=== PATIENT | male | born 1970 | race Caucasian/White ===

== ENCOUNTER 2023-07-13 20:39 | Inpatient (IN) | payer OTHER, SELFPAY ==
[2023-07-13 18:05] VITALS: BP 101/62; BMI 23.6
--- NOTE | 2023-07-13 18:46 | ED.GENMED ---
History of Present Illness
General
Chief Complaint: Skin Problem
Source: patient
Exam Limitations: none
Time Seen by Provider: 07/13/23 18:09
Travel History
Have you had any contact with someone who has COVID-19?: No
Do you have any symptoms of coronavirus? Fever > 100 degrees, chills, cough, shortness of breath, sore throat, loss of taste or smell, muscle aches, or headache?: No
History of Present Illness
History of Present Illness:
This is a 52 year old male that [facility]. Patient is a quadriplegic. States that he has a sacral wound that he feels opened in the past 3 days. States that he also straights cath's himself about 4 times daily and he feel that
he has a UTI as his urine is very dark. States that he has had a fever with chills, some occasional diarrhea. States that he also had a cough about 2 days ago. Denies any chest pain, SOB, abd pain, nausea, vomiting, headache, dizziness.
Past History
Past History
ED Past Medical History: Hypercholesterolemia and Other (Quadriplegic, Muscle spasm, )
ED Past Surgical History: Orthopedic (Spinal fusion, Dejuan shoulder reconstruction. ), Urological (Prior renal stent) and Other (Skin graft buttocks)
Social History
Tobacco: Non-smoker
Alcohol: None
Personal: Single
Living: senior care
Review of Systems
Review of Systems
All Other Systems: ROS reviewed and negative except as documented in HPI and ROS
Constitutional: Reports fever and chills
EENT: Reports no symptoms
Respiratory: Reports no symptoms; Denies cough or trouble breathing
Cardiac: Reports no symptoms; Denies chest pain
ABD/GI: Reports diarrhea; Denies abdominal pain, nausea or vomiting
: Reports dark urine
Musculoskeletal: Reports no symptoms
Skin: Reports other (Sacral wound opened 3 days ago)
Neurological: Reports no symptoms; Denies dizzy or headache
Psychiatric: Reports no symptoms
Phy Exam
General Physical Exam
General Presentation: no apparent distress
General age: appears stated age
General Skin: warm and dry
General Habitus: normal
General Mental: alert
General Hydration: dry mucous membranes
ENT Exam
ENT Exam: TM's normal, pharynx normal and neck supple
Eye Exam
Eye Exam: EOMI
Cardiovascular Exam
Cardiovascular Exam: regular rate/rhythm, no edema and normal peripheral pulses
Pulmonary Exam
Pulmonary Exam: lungs clear, no respiratory distress, no rales, chest non tender, no crackles, no rhonchi, no wheezing and no cough
Gastrointestinal Exam
Gastrointestinal Exam: normal bowel sounds, non tender, soft, no organomegaly, no pulsatile mass and non distended
Musculoskeletal Exam
Musculoskeletal Exam: no edema and other (Does not feel below the naval. Only has arm movement)
Skin Exam
Skin Exam: normal color, warm/dry, no petechia and other (Large sacral decub, stage 2 with open area noted on the distal aspect. Redness noted around wound with black edges of the wound. Negative for any drainage. Very fowl smelling. )
Psychiatric Exam
Psychiatric Exam: normal mood/affect
Course
Orders/Labs/Results
Orders:
Orders
07/13/23 18:44
0.9% Sodium Chloride 1000 ml [Nss] 1,000 ml IV BOLUS
Acetaminophen [Tylenol] 1,000 mg PO NOW STA
07/13/23 18:46
CR Chest - 2 Views Urgent
Comment:
Reason For Exam: fever
07/13/23 18:52
Complete Blood Count/With Diff Urgent
Comprehensive Metabolic Panel Urgent
Lactic Acid Q4H
Comment: CANCEL 2nd LACTIC ACID IF 1st LACTIC ACID IS LESS THAN 2
Urinalysis Reflex To Culture Urgent
Date Specimen was Collected: 07/13/23
Time Specimen was Collected: 18:50
Urine Microscopic Reflex Cult Urgent
Blood Culture Q30M
HAMLET Source: Blood/Venous
Specimen Description:
Urine Culture Urgent
HAMLET Source: U
Specimen Description:
Date Specimen was Collected: 07/13/23
Time Specimen was Collected: 18:50
Wound Culture [Wound/Abscess/Other Culture] Urgent
HAMLET Source: Sacral
Specimen Description:
Date Specimen was Collected: 07/13/23
Time Specimen was Collected: 18:50
07/13/23 19:42
COVID-19 Antigen Urgent
Source: Nasal Swab
Influenza A+B Rapid Molecular Urgent
HAMLET Source: Nasal Swab
Specimen Description:
07/13/23 19:44
Vancomycin 1 Gram/200 ml [Vancocin] 1 gram in 200 ml IV NOW
07/13/23 19:58
Blood Culture Q30M
HAMLET Source: Blood/Venous
Specimen Description:
07/13/23 20:29
Admit/Transfer Patient As Directed
Co-Sign Provider:
Level of Care: Inpatient admission
Assign to:: Medical/Surgical
Physician / Group: divya le
Diagnosis: stage 2 sacral decub, quadripelegia, neurogenic bladder
Reason for Hospitalization: stage 2 sacral decub, quadripelegia, neurogenic bladder
Expected length of stay greater than two midnights?: Yes
ELOS- Estimated Length of Stay in days: 4
I certify the patient meets the requirements for IP care: Yes
Code Status As Directed
Resuscitation Status: Full Code
07/13/23 20:31
MRSA Screen Routine
HAMLET Source: Nose
Specimen Description:
Straight Cath As Directed
Frequency: q6h
Patient may straight cath themselves: Yes
Abnormal Lab Results
07/13/23
18:52
RBC 4.43 L 10^6/uL
(4.70-6.10)
Hgb 12.7 L g/dL
(13.0-18.0)
Hct 36.2 L %
(39.0-52.0)
Absolute Lymphs (auto) 0.3 L 10^3/uL
(1.2-3.4)
Neutrophils % 84.9 H %
(42.2-75.2)
Lymphocytes % 4.6 L %
(20.5-51.1)
Sodium 134 L mmol/L
(135-145)
Glucose 153 H mg/dl
(70-99)
Calcium 8.3 L mg/dl
(8.4-10.2)
AST 61 H U/L
(17-59)
Total Protein 5.6 L g/dl
(6.3-8.2)
Albumin 3.0 L g/dl
(3.5-5.0)
Ur Occult Blood Reflex 3+ A
(Negative)
Leukocyte Esterase Rfl Trace A
(Negative)
Urine RBC 16-20 A /HPF
(0-2)
Urine Bacteria (Reflex) Moderate A
(Negative)
07/13/23 18:52
07/13/23 18:52
H/H slightly low. Hyperglycemia, AST slightly elevated. Urine negative for infection. Lactic acid normal at 1.5, COVID negative, Negative for Influenza
Vital Signs
Initial and Last Documented VS:
Initial Vital Signs
Temp Pulse Resp BP Pulse Ox
99.6 F 115 22 101/62 100
07/13/23 18:05 07/13/23 18:05 07/13/23 18:05 07/13/23 18:05 07/13/23 18:05
Last Documented Vital Signs
Temp Pulse Resp BP Pulse Ox
102.3 F H 105 20 103/62 93
07/13/23 18:43 07/13/23 19:43 07/13/23 19:43 07/13/23 19:43 07/13/23 19:43
MDM/Problems Addressed
Differential Diagnosis Includes:
UTI, Sacral wound infection
MDM/Problems Addressed:
This is a 52 year old male that comes in with c/o open of his sacral wound 3 days ago. States that he also feels that he has a UTI as his urine has jj very dark. Patient self caths 4 times daily. States that he has had a fever with chills
Will get Septic work up and most likely admit as patient has a fever of 102.2 Await labs.
Chronic conditions affecting care:
Sacral wound, Self caths, Quadraplegic
Acute Exacerbation and/or Progression of Chronic Illness:
Self caths, Sacral wound
*Radiology
Radiology exam reviewed: preliminary read by ED provider (Chest- Negative for any acute disease of the chest. ) and radiology read reviewed (Chest-NO acute cardiopulmonary process. )
*Pulse Oximetry
Patient hypoxic: no
*EKG
Interpreted by ED Provider?: NA
Rate: EKG- N/A
*Lens Fabricating Machine Tender Interpretation
Rate: Lens Fabricating Machine Tender- N/A
*Critical Care Note
Total Time (30-74mins, 75-104mins- exclusive of procedures): Not Applicable
ED Attending Note
-
Portions of this chart may have been created with voice recognition software.� Occasional wrong word or��sound alike� substitutions may have occurred due to the inherent limitations of voice recognition software.
Discharge Plan
Departure
Patient Disposition: Admit
Date of Disposition: 07/13/23
Time of Disposition: 19:46
Admit to: Med/Surg
Presentation/result/management discussed w/ accepting MD/DO: Hospitalist
Patient with high blood pressure during this ER visit?: No
Condition: Good
Covid-19: Negative COVID-19
Discharge Problem:
Fever, Sacral wound Infection
Prescriptions:
No Action
chlorpheniramine maleate [Allergy 4-Hour] 4 mg Tablet
4 mg PO BIDPRN PRN (Reason: allergies)
polyethylene glycol 3350 [Miralax] 17 gram Powder In Packet
17 g PO DAILYPRN PRN (Reason: constipation)
lubricants [K-Y Lubricating] Gel
1 ea TOPICAL DAILY
meloxicam [Mobic] 15 mg Tablet
15 mg PO DAILYPRN PRN (Reason: mild pain)
guaifenesin 200 mg Tablet
400 mg PO BIDPRN PRN (Reason: cough)
baclofen 20 mg Tablet
60 mg PO DAILY
Fleet Enema 19-7 gram/118 mL Enema
118 ml SD [id number] PRN (Reason: constipation)
oxybutynin chloride 5 mg Tablet
5 mg PO BID
rosuvastatin [Crestor] 10 mg Tablet
10 mg PO DAILY
Cetaphil Cream
1 applic TOPICAL DAILYPRN PRN (Reason: dryness)
Referrals:
[facility] [Family Provider] -
Interventions
Interventions:
*Risk Screen - Suicide Last Done: 07/13/23 18:05
*General Assessment Last Done: 07/13/23 18:05
*Neglect/Abuse Screening Last Done: 07/13/23 18:05
ED- Fall Risk Assessment Last Done: 07/13/23 18:05
*ED COVID-19 Vaccine History Last Done: 07/13/23 18:05
ED-Skin Assessment Last Done: 07/13/23 19:06
Discharge Date and Time
Print Language: WOLOF
[2023-07-13] MEDS: NSS 1000 IV ×2 (18:53→22:17)
[2023-07-13] MEDS: TYLENOL 1000 MG PO (19:01)
[2023-07-13 19:02] LABS: % Basophils 0.7 % (0-2); % Eosinophils 0.2 % (0-6); % Immature Granulocytes 0.5 % (0-0.5); % Lymphocytes 4.6 % (20.5-51.1); % Monocytes 9.1 % (1.7-9.3); % Neutrophils 84.9 % (42.2-75.2); Absolute Lymphocytes 0.3 10^3/uL (1.2-3.4); Absolute Monocytes 0.6 10^3/uL (0.1-0.6); Absolute Neutrophils 5.2 10^3/uL (1.4-6.5); Hematocrit 36.2 % (39.0-52.0); Hemoglobin 12.7 g/dL (13.0-18.0); Mean Corp Hgb Conc. 35.1 g/dL (33.0-37.0); Mean Corpuscular Hgb 28.7 pg (27.0-31.0); Mean Corpuscular Volume 81.7 fL (80.0-94.0); Mean Platelet Volume 8.9 fL (7.4-10.4); Nucleated Red Blood Cells % 0 % (-); Platelet Count 173 10^3/uL (130-400); Red Blood Cell Count 4.43 10^6/uL (4.70-6.10); Red Cell Dist. Width 13.6 % (11.5-14.5); White Blood Cell Count 6.2 10^3/uL (4.8-10.8)
[2023-07-13 19:03] LABS: Urine Albumin Trace (Neg - Trace); Urine Bilirubin Negative (Negative); Urine Character Clear (Clear); Urine Color Yellow; Urine Glucose Negative (Negative); Urine Ketone Negative (Negative); Urine Leukocyte Trace (Negative); Urine Nitrite Negative (Negative); Urine Occult Blood 3+ (Negative); Urine Urobilinogen 1+ (Neg - 1+); Urine pH 6.5 (5.0-9.0)
[2023-07-13 19:09] VITALS: BP 93/73
[2023-07-13 19:14] LABS: Lactic Acid 1.5 mmol/L (0.7-2.0)
[2023-07-13 19:21] LABS: ALT (SGPT) 49 U/L (0-50); AST (SGOT) 61 U/L (17-59); Alkaline Phosphatase 82 U/L (38-126); Blood Urea Nitrogen 19 mg/dl (9-20); Calcium 8.3 mg/dl (8.4-10.2); Carbon Dioxide 26 mmol/L (22-30); Chloride 101 mmol/L (98-107); Estimated Creatinine Clearance 113 ml/min; Glucose 153 mg/dl (70-99); Potassium 3.6 mmol/L (3.5-5.1); Sodium 134 mmol/L (135-145); Total Bilirubin 0.4 mg/dl (0.2-1.3); Total Protein 5.6 g/dl (6.3-8.2); eGFR > 60.00
--- NOTE | 2023-07-13 19:23 | EDRN ---
pt presents with a stage 2 sacral wound. pt has dressing on wound from [facility] on arrival to [facility].
[2023-07-13 19:36] LABS: Urine Bacteria Moderate (Negative); Urine Red Blood Cell 16-20 /HPF (0-2)
[2023-07-13 19:43] VITALS: BP 103/62
[2023-07-13] MEDS: VANCOCIN 200 IV (19:58)
[2023-07-13 20:10] LABS: COVID-19 Antigen Negative (Negative)
--- NOTE | 2023-07-13 20:10 | HPS.HSE ---
Family Physician
-
Family Physician: Facility [facility]
Chief Complaint
-
Sacral wound, fever, chills, diarrhea, dark urine from straight cath
History of Present Illness
52-year-old male from [facility] who is a quadriplegic stating he has had a sacral wound that is opened in the past 3 days. He reports being at [facility] for the past 15 days approximately 3 days ago he noticed a
nickel size wound to his sacral area which is now currently approximately 4 inch x 4 inch stage II with foul odor. He also has neurogenic bladder and straight caths himself approximate 4 times per day. He states that his urine has been very dark.
He is also reporting fever with chills and occasional diarrhea along with cough approximately 2 days ago. He also reports being constipated for the last 6 days he typically does an enema every 3 days. He did try an enema the past 3 days including
today with no relief. He denies chest pain, palpitations, shortness breath, abdominal pain, nausea, vomiting, headache, dizziness. He has past medical history of quadriplegia with muscle spasms since 1996 T8 and below, neurogenic bladder self
cath, chronic constipation, HLD, history of skin graft to right buttocks.
Medical History
Past Medical History
Past Medical History: Reports Other
Additional Past Medical History:
quadriplegia with muscle spasms 1996 injury T8 and below
neurogenic bladder self cath 4 times daily
HLD
history of skin graft to right buttocks
chronic constipation is on chronic bowel regimen of enema every 3 days
Past Surgical History: Reports Other
Additional Past Surgical History:
Spinal fusion
Bilateral shoulder reconstruction
Prior renal stent
Skin graft to buttocks left
Social History
Tobacco: Non-smoker
Alcohol: None
Drug: None
Living: [facility]-Way ([facility])
Employment: Disabled
Family History
Family History: Other (Father age 42 unknown type of cancer mother dementia)
Allergies / Home Medications
Allergies reflects when Allergies were last updated in [employer].
Home Medications with original date entered in [employer]
Allergy/Medication List:
Allergies
Allergy/AdvReac Type Severity Reaction Status Date / Time
No Known Allergies Allergy Unverified 07/13/23 18:13
Home Medications
baclofen 20 mg tablet 60 mg PO DAILY 07/13/23
cetyl and stearate alcohol-propylen glycol-sls topical cream (Cetaphil topical cream) 1 applic topical DAILYPRN PRN dryness 07/13/23
chlorpheniramine maleate 4 mg tablet 4 mg PO BIDPRN PRN allergies 07/13/23
guaifenesin 200 mg tablet 400 mg PO BIDPRN PRN cough 07/13/23
lubricants topical gel (K-Y Lubricating topical jelly) 1 ea topical DAILY suuffle cup 07/13/23
meloxicam 15 mg tablet 15 mg PO DAILYPRN PRN mild pain 07/13/23
oxybutynin chloride 5 mg tablet 5 mg PO BID 07/13/23
polyethylene glycol 3350 17 gram oral powder packet (Miralax) 17 g PO DAILYPRN PRN constipation 07/13/23
rosuvastatin 10 mg tablet 10 mg PO DAILY 07/13/23
sodium phosphates 19 gram-7 gram/118 mL enema (Fleet Enema) 118 ml GA [id number] PRN constipation 07/13/23
Review of Systems
-
History Source: Patient and Other ([facility] guards present in room)
A 12 point ROS was completed and negative except as noted: Yes
Constitutional: Reports Fever and Chills
EENT: Denies Sore Throat or Runny Nose
Respiratory: Denies Cough or Trouble Breathing
Abdomen/GI: Reports Constipated; Denies Abdominal Pain, Nausea or Vomiting
: Reports Dark Urine (From straight cath); Denies Dysuria or Frequency
Musculoskeletal: Reports Other (Spasms to bilateral lower legs which are chronic); Denies Joint Pain or Edema
Skin: Denies Itching or Rash
Neurological: Denies Dizzy, Headache or Weakness
Endocrine: Reports No Symptoms
Hematologic/Lymphatic: Reports No Symptoms
Psych: Reports Calm
Physical Exam
Vital Signs
Vital Signs
Temp Pulse Resp BP Pulse Ox
102.3 F H 105 20 103/62 93
07/13/23 18:43 07/13/23 19:43 07/13/23 19:43 07/13/23 19:43 07/13/23 19:43
Physical Exam
General: Comfortable, Conversant, Fever and Chills
HEENT: NormoCephalic, Anicteric, Moist mucous membranes, PERRLA, [place] Conjunctivae and No Ptosis
Respiratory: Clear; No Wheezes, Rales or Rhonchi
Cardiac: S1/S2 and Regular Rhythm; No Murmur, Rub, Gallop or Peripheral Edema
Breast: Deferred by me
GI: Soft, Non Tender, Non Distended, Normal Bowel Sounds and No Hepatosplenomegaly
Genito-urinary: Other (Patient straight cath for urine)
Musculoskeletal: No Clubbing, No Cyanosis and No Edema
Skin: Warm, Dry and Decubitus Ulcers (Stage II sacral decub approximately 4 x 4 inch with foul odor per nursing no drainage no tunnenling )
Neuro: AO x 3, Cranial Nerves Intact and Other (Quadriplegic from level of T8 down no sensation); No Slurred Speech or Facial Droop
Psych: Calm
Laboratory Results
-
07/13/23 18:52
07/13/23 18:52
Laboratory Results
Lactic Acid 1.5 mmol/L (0.7-2.0) 07/13/23 18:52
Total Bilirubin 0.4 mg/dl (0.2-1.3) 07/13/23 18:52
AST 61 U/L (17-59) H 07/13/23 18:52
ALT 49 U/L (0-50) 07/13/23 18:52
Alkaline Phosphatase 82 U/L (38-126) 07/13/23 18:52
Data Reviewed
-
Lab Data: Labs Reviewed by me
Impression/Plan
-
Impression/plan:
Admit to MedSurg
#Sepsis 2/2 sacral wound 2/2 quadriplegia concern for osteomyelitis
-102.3 F, HR 105, 103/62, WBC 6.2
-Blood cultures x 2, wound culture
-Consult wound care
-IV vancomycin
- Iv zosyn
- ct pelvis with contrast
-Check nasal MRSA swab
#Hx quadriplegia with muscle spasms since 1996 level T8 down
-Occasionally will feel sensation of tingling to buttocks when sitting prolonged on hard surface
-Continue baclofen 60 mg daily, meloxicam 15 mg daily as needed
CXR: No acute cardiopulmonary process
#Hx MRSA approx-5 to 7 years ago on wound
#Neurogenic bladder
#Self caths 4 times a day
Continue oxybutynin 5 mg p.o. twice daily
-Follow urine culture
#HLD-continue Crestor 10 mg daily
#Constipation
-Continue MiraLAX daily as needed, fleets enema as needed
#Seasonal allergies
-Continue chlorphentermine twice daily as needed
DVT prophylaxis
Subcu Lovenox
Full code
--- NOTE | 2023-07-13 20:49 | W.PN.UPDATE ---
Update Note
Progress Note Update
This is an addendum to the H&P written by LAUREN Groves on 07/13/2023.
Patient seen examined independently with CRUSHER FOREMAN.
52-year-old male with past medical history of quadriplegia, neurogenic bladder and self catheterizes 4 times a day, chronic constipation, sacral pressure ulcer, hyperlipidemia, presenting from [facility] for infected sacral ulcer. The
ulcer has been draining purulent discharge. He does not have much sensation there. He has fevers and chills. He has slight cough and some mild shortness of breath. He has not had a bowel movement 6 days.
As per nurses there is stage II ulcer with foul odor and no discharge.
Concern for sepsis secondary to potential osteomyelitis of sacral decubitus ulcer. IV fluids, blood cultures, wound culture sent, vancomycin/Zosyn. CT abdomen pelvis to evaluate extent of sacral ulcer/osteomyelitis. Wound care consulted. General
surgery consulted for debridement. MiraLAX for constipation. Chest x-ray unremarkable.
[2023-07-13] MEDS: MIRALAX 17 GRAMS PO (20:51)
[2023-07-13 21:04] VITALS: BP 92/54
[2023-07-13 21:40] VITALS: BP 101/57; BMI 23.0
--- NOTE | 2023-07-13 22:00 | PHA.VAN.IN ---
Assessment
- Assessment
Renal Function: Unknown baseline
Maximum Temperature: 102.3
Minimum Temperature: 99.6
Concomitant Antimicrobials: ZOSYN
AUC Dosing Plan
- Dosing Variables
Dosing Weight (kg): 74.7
Dosing CrCl (ml/min): 113
Vd coefficient (L/kg): 0.7
- Empiric Dosing
Initial / Loading Dose: 1500 MG X 1
Maintenance Regimen: 1250 MG Q12H
Estimated AUC (mcg*h/mL): 523
Estimated Peak (mcg*h/mL): 34.5
Estimated Trough (mcg/ml): 12.3
- Monitoring
No levels ordered at this time: consider ordering levels in the next few days
Pharmacokinetics Vancomycin I
- -
Patient Age: 52
Patient Sex: Male
Vancomycin Day #: 1
Indication: Skin And Soft Tissue
Requesting Provider: GIULIANO BRAGA
Pertinent Antimicrobial Allergies:
NKDA
Height / Weight:
Height 5 ft 10 in
Actual Weight 74.7 kg
IBW in k KG
Adjusted BW in k.7 KG
Pertinent Past Medical History: SACRAL ULCER
- Vital Signs / Lab Results
Temp Pulse Resp BP Pulse Ox
100.4 F H 94 20 92/54 94
07/13/23 21:04 07/13/23 21:04 07/13/23 21:04 07/13/23 21:04 07/13/23 21:04
Lab Results - Hematology
07/13/23
18:52
WBC 6.2
Lab Results - Chemistry
07/13/23
18:52
BUN 19
Creatinine 0.8
Estimated Creat Clear 113
Albumin 3.0 L
07/13/23 07/13/23
18:52 22:45
Lactic Acid 1.5 Cancelled
Lab Results - Urine
07/13/23
18:52
Urine Nitrite (Reflex) Negative
Leukocyte Esterase Rfl Trace A
Urine WBC (Reflex) 6-10
Ur Squamous Epith Cells 11-15
Urine Bacteria (Reflex) Moderate A
Microbiology Results
07/13/23 19:42 Influenza Types A & B (SADIE) - Final
Nasal Swab Negative for Influenza A & B, NAAT
Negative results must be combined with clinical observations
and patient history.
Nucleic Acid Amplification test (NAAT)performed on the
[employer] NOW platform.
[2023-07-13] MEDS: ZOSYN 50 IV (22:18)
[2023-07-13] MEDS: VANCOCIN HCL 500 MG 100 IV (23:23)
[2023-07-13 23:50] VITALS: BP 113/71
[2023-07-14] VITALS (9 sets, daily range): BP systolic 89–116; BP diastolic 52–94; PULSE 84; O2SAT 94–95; BMI 23.0
[2023-07-14] MEDS: MOBIC 15 MG PO (00:26)
[2023-07-14] MEDS: TYLENOL 650 MG PO ×5 (01:07→22:06)
--- NOTE | 2023-07-14 01:35 | PTCARENOTE ---
Pt c/o severe neck pain. States that last night he rolled almost out of his bunk and was laying awkwardly on his neck for a while until he could get himself back in bed. Med with meloxicam and tylenol. Pt asking for heating pad. House REHABILITATION ENGINEER notified
and ordered same.
[2023-07-14] MEDS: ZOSYN 50 IV ×4 (03:29→21:03)
--- NOTE | 2023-07-14 05:04 | PTCARENOTE ---
Pt grossly incontinent of urine during the night. Bladder scanned at approx 2300 and only revealed 150ml. Pt saturated at 0400 but wanted to be straight cathed. Cathed for 200ml. Condom cath #25 placed on pt.
[2023-07-14] MEDS: VANCOCIN 275 MG IV ×2 (05:52→17:30)
[2023-07-14] MEDS: OMNIPAQUE 50 ML PO (05:52)
[2023-07-14 06:28] LABS: % Basophils 0.9 % (0-2); % Eosinophils 1.3 % (0-6); % Immature Granulocytes 0.6 % (0-0.5); % Lymphocytes 7.3 % (20.5-51.1); % Monocytes 11.3 % (1.7-9.3); % Neutrophils 78.6 % (42.2-75.2); Absolute Basophils 0.1 10^3/uL (0-0.2); Absolute Eosinophils 0.1 10^3/uL (0-0.7); Absolute Lymphocytes 0.5 10^3/uL (1.2-3.4); Absolute Monocytes 0.8 10^3/uL (0.1-0.6); Absolute Neutrophils 5.4 10^3/uL (1.4-6.5); Hematocrit 34.5 % (39.0-52.0); Hemoglobin 12.1 g/dL (13.0-18.0); Mean Corp Hgb Conc. 35.1 g/dL (33.0-37.0); Mean Corpuscular Hgb 28.4 pg (27.0-31.0); Nucleated Red Blood Cells % 0 % (-); Platelet Count 144 10^3/uL (130-400); Red Blood Cell Count 4.26 10^6/uL (4.70-6.10); Red Cell Dist. Width 13.5 % (11.5-14.5); White Blood Cell Count 6.8 10^3/uL (4.8-10.8)
[2023-07-14 07:24] LABS: ALT (SGPT) 48 U/L (0-50); AST (SGOT) 55 U/L (17-59); Albumin 2.5 g/dl (3.5-5.0); Alkaline Phosphatase 66 U/L (38-126); Blood Urea Nitrogen 15 mg/dl (9-20); Calcium 7.9 mg/dl (8.4-10.2); Carbon Dioxide 25 mmol/L (22-30); Chloride 107 mmol/L (98-107); Estimated Creatinine Clearance > 125 ml/min; Glucose 110 mg/dl (70-99); Potassium 3.8 mmol/L (3.5-5.1); Sodium 137 mmol/L (135-145); Total Bilirubin 0.6 mg/dl (0.2-1.3); Total Protein 4.9 g/dl (6.3-8.2); eGFR > 60.00
[2023-07-14] MEDS: NSS 1000 IV ×2 (07:39→23:58)
[2023-07-14] MEDS: CRESTOR 10 MG PO (07:41)
[2023-07-14] MEDS: LIORESAL 60 MG PO (07:41)
[2023-07-14] MEDS: DITROPAN 5 MG PO (07:41)
--- NOTE | 2023-07-14 08:22 | PHA.VAN.FU ---
Vancomycin Assessment / Plan
- Assessment
Renal Function: Stable
WBC's are: WNL
Concomitant Antimicrobials: piperacillin/tazobactam
- Dosing Plan
Continue: Vanc 1250mg Q12H
- Monitoring Plan
No level(s) ordered at this time: consider levels in next few days
- Follow Up
Pharmacy will continue to follow.
Vancomycin Follow UP
- -
Patient Age: 52
Patient Sex: Male
Vancomycin Day #: 2
Indication: Skin And Soft Tissue
Requesting Provider: Edi Groves
Pertinent Antimicrobial Allergies:
NKDA
Height / Weight:
Height 5 ft 10 in
Actual Weight 72.773 kg
Pertinent Past Medical History: Quadriplegic
- Vital Signs / Lab Results
Temp Pulse Resp BP Pulse Ox
98.8 F 101 18 116/71 98
07/14/23 07:20 07/14/23 07:20 07/14/23 07:20 07/14/23 07:20 07/14/23 07:20
Lab Results - Hematology
07/13/23 07/14/23
18:52 06:17
WBC 6.2 6.8
Lab Results - Chemistry
07/13/23 07/14/23
18:52 06:17
BUN 19 15
Creatinine 0.8 0.7
Estimated Creat Clear 113 > 125
Albumin 3.0 L 2.5 L
07/13/23 07/13/23
18:52 22:45
Lactic Acid 1.5 Cancelled
Lab Results - Urine
07/13/23
18:52
Urine Nitrite (Reflex) Negative
Leukocyte Esterase Rfl Trace A
Ur Squamous Epith Cells 11-15
Microbiology Results
07/13/23 19:42 Influenza Types A & B (SADIE) - Final
Nasal Swab Negative for Influenza A & B, NAAT
Negative results must be combined with clinical observations
and patient history.
Nucleic Acid Amplification test (NAAT)performed on the
[employer] NOW platform.
[2023-07-14] MEDS: FLEET PHOSPHATE ENEMA-ADULT 135 ML RECTAL (10:31)
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
--- NOTE | 2023-07-14 12:06 | WOUNDNOTE ---
[facility] RN NOTE: Reviewed chart and met with patient. Patient reports quadriplegia since 1996. He explained he had a stage 4 sacral wound in the past with surgical repair and flap (approx 2009). He said the wound was stable but started to deteriorate a
few days ago. He reports using Hydrogen Peroxide to wound and said that only worsened wound. On assessment wound appears unstageable, but likely stage 4. Odor and moderate to large amount of drainage noted. Heels intact. This medical writer called
housekeeping for air mattress and spoke to Christian. RN Kayden updated. Surgical consult ordered. Wound orders confirmed with hospitalist. Will continue to follow as needed.
[2023-07-14] MEDS: DAKIN'S SOLUTION 0.125% 1/4 STRENGTH 473 ML TOPICAL ×2 (14:41→21:02)
--- NOTE | 2023-07-14 14:53 | CON.ID ---
Consultation
-
Date/Time Consultation Requested: July 14, 2023 1145
Date/Time Consultation Performed: July 14, 2023 1450
Requesting Provider: Dr. Mark Rodriguez
Performing Provider: Dr. Ashley Cerna
Reason for Consultation: Infected sacral decubitus, possible UTI
Chief Complaint / Past History
Chief Complaint
Decubitus wound breakdown.
History of Present Illness
52-year-old male currently incarcerated with history of T8 injury, quadriplegia, neurogenic bladder and straight catheterizes 4 times a day, history of skin graft to the left buttock who presented to the hospital yesterday due to breakdown of sacral
decubitus. He reports that he had this sacral decubitus for a while which healed. However 4 days ago the wound opened up and was foul-smelling. He had subjective fever and chills. In the ER he was febrile to 102.4. He is currently on vancomycin
and Zosyn. Surgery has been consulted. He currently complains of neck pain. He states he pulled a muscle prior to admission. No headache. No flank pain. No bladder pressure. Urine has been dark but clear.
Past History
Additional Past Medical History:
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
Neurogenic bladder straight caths 4 times a day
Dyslipidemia
With history of skin graft to left buttock decubitus wound
Chronic constipation
Spinal fusion
Shoulder reconstruction
Allergy History:
No Known Allergies Allergy (Unverified 07/13/23 18:13)
Medications Reviewed: Yes
Current Antibiotics:
Vancomycin
Zosyn
Social History
Tobacco: Non-Smoker
Alcohol: None
Living: Penitentiary
Family History
Family History: Not Pertinent
Review of Systems
Review of Systems
General: Fever and Chills; Negative Change in Appetite
HEENT: Negative Sinus Problems or Headache
Cardiovascular: Negative Chest Pain or Dyspnea
Respiratory: Cough; Negative Dyspnea
Gasteroenterology: Other (no diarrhea); Negative Nausea or Vomiting
Endocrine: Negative Weakness
Neurological: Negative Headache
All systems: All other systems were reviewed and were negative
Vital Signs
Temp Pulse Resp BP Pulse Ox
98.8 F 101 18 116/71 98
07/14/23 07:20 07/14/23 07:20 07/14/23 07:20 07/14/23 07:20 07/14/23 07:20
Selected Entries
07/13/23
18:43
Temp 102.3 F H
Physical Exam
Physical Exam
Constitutional: No Acute Distress
Eyes: No Conjunctival Hemorrhage and Sclera Anicteric
Cardiovascular: Regular Rate and S1/S2
Pulmonary: Clear
Gastrointestinal: Soft, Non Tender, Non Distended and Normal Bowel Sounds
Extremities: Negative Edema
Wound: Other (Review of wound photo shows sacrum with large wound munguia fribinous slough, underlying tissue granulating)
Neurological: AO x 3; Negative Meningeal Signs
Lab / Diagnostic Study Results
07/14/23 06:17
07/14/23 06:17
Abs Immat Gran (auto) 0.0 10^3/uL (0-0.05) 07/14/23 06:17
Absolute Neuts (auto) 5.4 10^3/uL (1.4-6.5) 07/14/23 06:17
Absolute Lymphs (auto) 0.5 10^3/uL (1.2-3.4) L 07/14/23 06:17
Absolute Monos (auto) 0.8 10^3/uL (0.1-0.6) H 07/14/23 06:17
Absolute Basos (auto) 0.1 10^3/uL (0-0.2) 07/14/23 06:17
Immature Gran % 0.6 % (0-0.5) H 07/14/23 06:17
Neutrophils % 78.6 % (42.2-75.2) H 07/14/23 06:17
Lymphocytes % 7.3 % (20.5-51.1) L 07/14/23 06:17
Monocytes % 11.3 % (1.7-9.3) H 07/14/23 06:17
Eosinophils % 1.3 % (0-6) 07/14/23 06:17
Basophils % 0.9 % (0-2) 07/14/23 06:17
Lactic Acid Cancelled 07/13/23 22:45
Ur Squamous Epith Cells 11-15 /LPF (Few) 07/13/23 18:52
Microbiology Results
Micro:
07/13/23 18:52 Wound Culture - Pending
Sacral Gram Stain - Preliminary
07/13/23 18:52 Blood Culture - Final
Blood/Venous Positive culture in progress
Gram Stain - Preliminary
07/13/23 20:53 MRSA Screen - Pending
Nose
07/13/23 19:42 Influenza Types A & B (SADIE) - Final
Nasal Swab Negative for Influenza A & B, NAAT
Negative results must be combined with clinical observations
and patient history.
Nucleic Acid Amplification test (NAAT)performed on the
[employer] platform.
07/13/23 19:58 Blood Culture - Pending
Blood/Venous
07/13/23 18:52 Urine Culture - Pending
Urine
07/13/23 CXR: No acute cardiopulmonary process.
07/14/23 CT a/p: Abnormal soft tissue attenuation within subcutaneous soft tissues extending from the level of the distal sacrum to the anus compatible with the given history of wound and associated inflammatory changes. No signs of abscess formation
or drainable collection. No abnormal osteolysis of the sacrum or coccyx to suggest osteomyelitis is identified at CT. Mild concentric mural thickening of the rectum with small amount of adjacent inflammatory stranding consistent with some form of
proctitis. Mild right hydronephrosis. There is right renal cortical scarring and there are no filling defects within the right ureter, chronic reflux is a consideration.
Assessment / Plan
# Sacral decubitus wound with cellulitis
# Fever
# Quadriplegia
- Can continue vanco/zosyn for now.
IF MRSA screen neg, dc Vancomycin.
# Neurogenic bladder, self cath
- UA bland with minimal pyuria.
- Observe for now.
--- NOTE | 2023-07-14 14:57 | CON.GS ---
Addendum entered and electronically signed by Brent Wayne MD 07/15/23 09:08:
CDI
Excisional debridement was performed of a minimal amount of fibrinous tissue overlying the ulcer. Wound depth of excision site was 0.5 x 0.5 x 0.5 cm. This tissue had a light brown in appearance. No odor. No purulence or pocket identified
underlying.
Original Note:
Medical History
-
Chief Complaint: Sacral decubitus ulcer
History of Present Illness:
Patient is a 52 yo M with a PMH notable for T8 spinal cord injury in 1996 c/b quadriplegia s/p spinal fusion, neurogenic bladder (self caths 4 times a day), HLD, s/p bilateral shoulder reconstruction, and chronic decubitus ulcers with prior skin
graft to LEFT buttock. Mr. Hogan is currently incarcerated at [facility]. During this time he notes poor wound care and increased pressurization to his coccyx resulting in a larger wound. He states that he has
previously had intermittent decubitus ulcers over the past several years, fortunately these have all been able to be managed with local wound care at a nearby wound care center, careful offloading, and high-protein/calorie diet. No significant
pain. No significant drainage. Not antibiotics prior to presentation. He does note fevers over the past few days. He reports a general unwell feeling with a cough and congestion over the past several days. Issues with constipation for which he
treats with enemas.
Past Medical History
Past Medical History: Hypercholesterolemia and Other (T8 spinal cord injury c/b quadriplegia, neurogenic bladder, and constipation requiring straight caths and enemas, prior decubitus ulcers)
Past Surgical History: Orthopedic (Bilateral shoulder spine fusion, ) and Other (LEFT buttock skin graft)
Social History
Tobacco: Non-Smoker
Alcohol: None
Drug: None
Living: Jail
Family History
Family History: Reviewed & Not Pertinent
Allergies / Home Medications
Allergy/AdvReac Type Severity Reaction Status Date / Time
No Known Allergies Allergy Unverified 07/13/23 18:13
�Medication �Instructions �Recorded �Confirmed �Type
baclofen 20 mg tablet 60 mg PO DAILY Muscle Spasms 07/13/23 07/13/23 History
cetyl and stearate 1 applic topical DAILYPRN PRN 07/13/23 07/13/23 History
alcohol-propylen glycol-sls dryness
topical cream (Cetaphil topical
cream)
chlorpheniramine maleate 4 mg 4 mg PO BIDPRN PRN allergies 07/13/23 07/13/23 History
tablet
guaifenesin 200 mg tablet 400 mg PO BIDPRN PRN cough 07/13/23 07/13/23 History
lubricants topical gel (K-Y 1 ea topical DAILY suuffle cup 07/13/23 07/13/23 History
Lubricating topical jelly)
meloxicam 15 mg tablet 15 mg PO DAILYPRN PRN mild pain 07/13/23 07/13/23 History
oxybutynin chloride 5 mg tablet 5 mg PO BID Urinary Issue 07/13/23 07/13/23 History
polyethylene glycol 3350 17 gram 17 g PO DAILYPRN PRN constipation 07/13/23 07/13/23 History
oral powder packet (Miralax)
rosuvastatin 10 mg tablet 10 mg PO DAILY High Cholesterol 07/13/23 07/13/23 History
sodium phosphates 19 gram-7 118 ml IL [id number] PRN constipation 07/13/23 07/13/23 History
gram/118 mL enema (Fleet Enema)
Review of Systems
-
A 10 point review of systems was completed, and was negative except as per HPI.
Physical Exam
Vital Signs
Temp Pulse Resp BP Pulse Ox
98.8 F 101 18 116/71 98
07/14/23 07:20 07/14/23 07:20 07/14/23 07:20 07/14/23 07:20 07/14/23 07:20
07/13/23 07/14/23 07/15/23
06:59 06:59 06:59
Actual Weight 72.773 kg
Body Mass Index (BMI) 23.0
Lab Results
07/14/23 06:17
07/14/23 06:17
WBC 6.8 10^3/uL (4.8-10.8) 07/14/23 06:17
Hgb 12.1 g/dL (13.0-18.0) L 07/14/23 06:17
Hct 34.5 % (39.0-52.0) L 07/14/23 06:17
Plt Count 144 10^3/uL (130-400) 07/14/23 06:17
Abs Immat Gran (auto) 0.0 10^3/uL (0-0.05) 07/14/23 06:17
Neutrophils % 78.6 % (42.2-75.2) H 07/14/23 06:17
Physical Exam
General: Well Developed, Well Nourished and No Apparent Distress
HEENT: Normocephalic and Anicteric
Respiratory: Non Labored Respirations
Cardiac: Regular Rhythm
GI: Soft, Non Tender and Non Distended
Rectal: Other (Superficial stage II decubitus ulcer measuring approximately 9 x 6 cm, no palpable fluctuance, no active drainage, no surrounding erythema, mild skin excoriation and necrosis, fibrinous tissue overlying)
Musculoskeletal: No Edema
Skin: Warm and Dry
Neuro: Nonfocal/Grossly Intact
Data Reviewed
-
CT Scan: Image Personally Visualized and interpreted and Report Reviewed by me
Labs: Labs Reviewed by me
Assessment / Plan
-
Patient is a 52 yo M p/w fevers and chronic sacral decubitus pressure ulcer
CT scan imaging and reviewed and without obvious evidence of osteomyelitis or underlying collection necessitating drainage. Exam reveals a superficial stage II pressure ulcer with some fibrinous debris overlying, no significant necrosis or
infection necessitating debridement. Localized bedside debridement was performed with sharp scissors in an attempt to evaluate/open up an underlying pocket of fluid, none found). No plans or indication for surgical debridement or management.
Recommend local wound care, offloading and decreased pressurization of this area, and high-protein/calorie diet. Follow-up as an outpatient with his previously identified wound care center. All questions answered. Please call with any questions
or concerns.
-- No plans or need fur surgical debridement
-- Local wound care, offloading and decreased pressurization of this area, and high-protein/calorie diet
-- Wound care consult noted
-- Call with questions or concerns
[2023-07-14] MEDS: LOVENOX 40 MG SC (17:30)
[2023-07-14] MEDS: DITROPAN PO ×2 (21:03→21:22)
[2023-07-15] MEDS: MOBIC 15 MG PO (00:11)
[2023-07-15 02:52] VITALS: BP 117/74
[2023-07-15] MEDS: ZOSYN 50 IV ×4 (04:10→22:23)
[2023-07-15] MEDS: TYLENOL 650 MG PO ×4 (04:10→20:14)
[2023-07-15] MEDS: VANCOCIN 275 MG IV ×2 (05:26→18:01)
[2023-07-15 07:09] LABS: % Basophils 0.4 % (0-2); % Eosinophils 1.4 % (0-6); % Immature Granulocytes 0.5 % (0-0.5); % Lymphocytes 7.2 % (20.5-51.1); % Monocytes 11.1 % (1.7-9.3); % Neutrophils 79.4 % (42.2-75.2); Absolute Eosinophils 0.1 10^3/uL (0-0.7); Absolute Lymphocytes 0.6 10^3/uL (1.2-3.4); Absolute Monocytes 0.9 10^3/uL (0.1-0.6); Absolute Neutrophils 6.3 10^3/uL (1.4-6.5); Hematocrit 32.5 % (39.0-52.0); Hemoglobin 11.1 g/dL (13.0-18.0); Mean Corp Hgb Conc. 34.2 g/dL (33.0-37.0); Mean Corpuscular Hgb 28.8 pg (27.0-31.0); Mean Corpuscular Volume 84.2 fL (80.0-94.0); Mean Platelet Volume 8.9 fL (7.4-10.4); Nucleated Red Blood Cells % 0 % (-); Platelet Count 169 10^3/uL (130-400); Red Blood Cell Count 3.86 10^6/uL (4.70-6.10); Red Cell Dist. Width 13.7 % (11.5-14.5)
[2023-07-15 07:30] VITALS: BP 116/76
[2023-07-15] MEDS: NSS 1000 IV ×3 (08:32→20:13)
[2023-07-15] MEDS: LIORESAL 60 MG PO (08:33)
[2023-07-15] MEDS: DITROPAN 5 MG PO (08:33)
[2023-07-15] MEDS: CRESTOR 10 MG PO (08:34)
--- NOTE | 2023-07-15 08:38 | PN.CDI ---
CDI
- -
CDI:
Physician Documentation Request
Admit Date: 07/13/23 20:39
Dear Doctor Rosana,
Please review the following and provide your response in the progress notes.
Clinical Indicators:
Consult, 07/13
#...chronic sacral decubitus pressure ulcer
#Exam reveals a superficial stage II pressure ulcer with some fibrinous debris overlying,
#...no significant necrosis or infection necessitating debridement.
#Localized bedside debridement was performed with sharp scissors
#...in an attempt to evaluate/open up an underlying pocket of fluid, none found).
Please provide, in the progress notes further clarification regarding the debridement.
Please specify the type of debridement performed:
1. Excisional Debridement
- defined as removal by excision of devitalized tissue, necrosis or slough
2. Non-excisional debridement
- defined as removal of devitalized tissue, necrosis or slough by such methods
...as irrigation, brushing, scrubbing or washing.
If the debridement was excisional, please also include:
1. Type of instrument used (#11 blade, #15 blade etc.)
2. What was excised (necrotic tissue, gangrenous tissue, slough etc.)
For excisional or non-excisional, please also include:
1. Depth of debridement (skin, subcutaneous tissue, fascia, muscle, bone etc)
2. Size and appearance of the wound (L, W, D, color of wound, drainage)
Use of terms such as suspected, likely, concern for, or probable (associated with a specific diagnosis that is being evaluated, monitored, or treated as if it exists) are acceptable and can be coded in the inpatient setting, when documented at the
time of discharge.
Thank you,
Yudelka Hill RN BSN CCDS
CDI Specialist
please contact via tiger text
Please use your independent medical judgment in providing your response.
[2023-07-15 08:47] LABS: ALT (SGPT) 43 U/L (0-50); AST (SGOT) 36 U/L (17-59); Albumin 2.2 g/dl (3.5-5.0); Blood Urea Nitrogen 10 mg/dl (9-20); Carbon Dioxide 21 mmol/L (22-30); Estimated Creatinine Clearance > 125 ml/min; Glucose 94 mg/dl (70-99); Total Bilirubin 0.6 mg/dl (0.2-1.3); Total Protein 4.6 g/dl (6.3-8.2); eGFR > 60.00
--- NOTE | 2023-07-15 08:47 | PN.CDI ---
CDI
- -
CDI:
Physician Documentation Request
Admit Date: 07/13/23 20:39
Dear Doctor Jennifer,
Please review the following and provide your response in the progress notes.
Due to conflicting documentation, please clarify the stage of the chronic sacral decubitus pressure ulcer....:
Clinical Indicators:
Surgical consult, 07/13
#Rectal: Other (Superficial stage II decubitus ulcer measuring approximately 9 x 6 cm, no palpable fluctuance, no active drainage, no surrounding erythema, mild skin excoriation and necrosis, fibrinous tissue overlying)
#...chronic sacral decubitus pressure ulcer
#Exam reveals a superficial stage II pressure ulcer with some fibrinous debris overlying,
#...no significant necrosis or infection necessitating debridement.
07/14/23 12:06 - Wound Note
#He explained he had a stage 4 sacral wound in the past
#...with surgical repair and flap (approx 2009).
#He said the wound was stable but started to deteriorate a few days ago.
#On assessment wound appears unstageable, but likely stage 4.
#Odor and moderate to large amount of drainage noted.
Physician documentation of the type and location of wounds is required for compliant documentation. Based on the above clinical findings and your assessment, please provide the following in your progress note:
Stage 4 sacral decubitus pressure ulcer, POA
Stage 2 sacral decubitus pressure ulcer, POA
Other(please specify)
1. Location of the ulcer/wound, including laterality.
2. Type (etiology) of ulcer/wound:
- Diabetic ulcer
- Arterial (ischemic) ulcer
- Traumatic wound
- Pressure (decubitus) ulcer
3. If a pressure ulcer, please also include the stage* of the ulcer:
- Stage 1 - Skin intact, non-blanchable redness
- Stage 2 - Partial thickness loss of dermis, includes intact or open blister
- Stage 3 - Full thickness tissue not including bone, tendon or muscle
- Stage 4 - Full thickness tissue loss, including exposed bone, tendon or muscle
- Unstageable - Full thickness loss in which the base of the ulcer is covered by slough (yellow, munguia, lott, green or brown) and/or eschar (munguia, brown or black) in the wound bed.
Use of terms such as suspected, likely, concern for, or probable (associated with a specific diagnosis that is being evaluated, monitored, or treated as if it exists) are acceptable and can be coded in the inpatient setting, when documented at the
time of discharge.
Thank you,
Yudelka Hill RN BSN CCDS
CDI Specialist
please contact via tiger text
Please use your independent medical judgment in providing your response.
*Source: National Pressure Ulcer Advisory Panel (NPUAP)
[2023-07-15 09:20] LABS: Alkaline Phosphatase 77 U/L (38-126); Calcium 7.9 mg/dl (8.4-10.2); Chloride 110 mmol/L (98-107); Potassium 3.6 mmol/L (3.5-5.1); Sodium 137 mmol/L (135-145)
[2023-07-15] MEDS: DAKIN'S SOLUTION 0.125% 1/4 STRENGTH 473 ML TOPICAL ×2 (10:57→20:11)
[2023-07-15 11:10] VITALS: BP 99/51
--- NOTE | 2023-07-15 11:53 | PHA.VAN.FU ---
Vancomycin Assessment / Plan
- Assessment
Renal Function: Stable
In the past 24 hrs, patient has been: Febrile (100.4 - 07/14 00:10)
Concomitant Antimicrobials: piperacillin/tazobactam
- Dosing Plan
Continue: vancomycin 1250 mg q12h - first dose 07/13 0600
- Monitoring Plan
Peak Level: 07/14 2100 - after 5th total dose
Trough Level: 07/15 0530
- Follow Up
Pharmacy will continue to follow.
Vancomycin Follow UP
- -
Patient Age: 52
Patient Sex: Male
Vancomycin Day #: 3
Indication: Skin And Soft Tissue
Requesting Provider: Edi Groves
Pertinent Antimicrobial Allergies:
NKDA
Height / Weight:
Height 5 ft 10 in
Actual Weight 72.773 kg
IBW in k KG
Adjusted BW in k.7 KG
Pertinent Past Medical History: Quadriplegic
- Vital Signs / Lab Results
Temp Pulse Resp BP Pulse Ox
98.6 F 95 14 99/51 100
07/15/23 11:10 07/15/23 11:10 07/15/23 11:10 07/15/23 11:10 07/15/23 11:10
Lab Results - Hematology
07/13/23 07/14/23 07/15/23
18:52 06:17 06:54
WBC 6.2 6.8 8.0
Lab Results - Chemistry
07/13/23 07/14/23 07/15/23
18:52 06:17 06:54
BUN 19 15 10
Creatinine 0.8 0.7 0.6 L
Estimated Creat Clear 113 > 125 > 125
Albumin 3.0 L 2.5 L 2.2 L
07/13/23 07/13/23
18:52 22:45
Lactic Acid 1.5 Cancelled
Microbiology Results
07/13/23 18:52 Wound Culture - Preliminary
Sacral Gram Stain - Preliminary
07/13/23 18:52 Blood Culture - Preliminary
Blood/Venous Streptococcus pyogenes
Gram Stain - Final
07/13/23 18:52 Urine Culture - Final
Urine No Significant Growth
07/13/23 20:53 MRSA Screen - Final
Nose Staph aureus MRSA
07/13/23 19:58 Blood Culture - Preliminary
Blood/Venous No Growth in 24 hours- Final report to follow
07/13/23 19:42 Influenza Types A & B (SADIE) - Final
Nasal Swab Negative for Influenza A & B, NAAT
Negative results must be combined with clinical observations
and patient history.
Nucleic Acid Amplification test (NAAT)performed on the
[employer] platform.
--- NOTE | 2023-07-15 12:47 | CM ---
Reviewed chart, patient from [facility]. Will call [facility] upon discharge.
Plan: Case management will continue to follow and assist with discharge planning. Back to [facility] when stable.
--- NOTE | 2023-07-15 13:12 | W.PN.ID1 ---
Date of Service
Date of Service: July 15, 2023
Today's Communication
Continue Vanco/Zosyn for now.
Assessment / Plan
# Sacral decubitus wound with cellulitis
# Strep pyogenes bacteremia - wound source
# Fever- trending down
# MRSA colonized
# Quadriplegia
- Follow repeat blood cx's
- Can continue vanco/zosyn for now.
#Additional Past Medical History:
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
Neurogenic bladder straight caths 4 times a day
Dyslipidemia
With history of skin graft to left buttock decubitus wound
Chronic constipation
Spinal fusion
Shoulder reconstruction
Vital Signs / Physical Exam
Vital Signs
Vital Signs
Temp Pulse Resp BP Pulse Ox
98.6 F 95 14 99/51 100
07/15/23 11:10 07/15/23 11:10 07/15/23 11:10 07/15/23 11:10 07/15/23 11:10
Selected Entries
07/14/23
17:10
Temp 100.8 F H
Physical Exam
Constitutional: No Acute Distress
Cardiovascular: Regular Rate and S1/S2
Gastrointestinal: Soft and Non Tender
Objective Data
Lab Data
Lab Results
07/15/23 06:54
07/15/23 06:54
Estimated Creat Clear > 125 ml/min 07/15/23 06:54
Lactic Acid Cancelled 07/13/23 22:45
Total Bilirubin 0.6 mg/dl (0.2-1.3) 07/15/23 06:54
AST 36 U/L (17-59) 07/15/23 06:54
ALT 43 U/L (0-50) 07/15/23 06:54
Alkaline Phosphatase 77 U/L (38-126) 07/15/23 06:54
Most recent labs reviewed.
Micro Results:
07/13/23 18:52 Wound Culture - Preliminary
Sacral Gram Stain - Preliminary
07/13/23 18:52 Blood Culture - Preliminary
Blood/Venous Streptococcus pyogenes
Gram Stain - Final
07/13/23 18:52 Urine Culture - Final
Urine No Significant Growth
07/13/23 20:53 MRSA Screen - Final
Nose Staph aureus MRSA
07/15/23 06:54 Blood Culture - Pending
Blood/Venous
07/13/23 19:58 Blood Culture - Preliminary
Blood/Venous No Growth in 24 hours- Final report to follow
07/14/23 16:05 Blood Culture - Pending
Blood/Venous
07/13/23 19:42 Influenza Types A & B (SADIE) - Final
Nasal Swab Negative for Influenza A & B, NAAT
Negative results must be combined with clinical observations
and patient history.
Nucleic Acid Amplification test (NAAT)performed on the
[employer] platform.
07/13/23 CXR: No acute cardiopulmonary process.
07/14/23 CT a/p: Abnormal soft tissue attenuation within subcutaneous soft tissues extending from the level of the distal sacrum to the anus compatible with the given history of wound and associated inflammatory changes. No signs of abscess formation
or drainable collection. No abnormal osteolysis of the sacrum or coccyx to suggest osteomyelitis is identified at CT. Mild concentric mural thickening of the rectum with small amount of adjacent inflammatory stranding consistent with some form of
proctitis. Mild right hydronephrosis. There is right renal cortical scarring and there are no filling defects within the right ureter, chronic reflux is a consideration.
[2023-07-15 15:00] VITALS: BP 123/79
--- NOTE | 2023-07-15 16:12 | PTOTSP ---
Dysphagia Evaluation
Patient presents with functional oral stage of swallowing and an unspecified pharyngeal dysphagia characterized by c/o stasis and effortful/multiple swallows. Patient reported acute onset of dysphagia this date which he attributed to right sided
neck pain after falling out of his wheelchair prior to hospital admission.
Recommend:
1. IDDSI Level 4 Puree, IDDSI Level 0 Thin Liquids
2. Medications - crushed in puree
3. Strategies: upright to 90 degrees, small single sips/bites, slow rate
4. Video swallow study to objectively assess swallowing
*If any worsened c/o stasis and/or signs of aspiration, discontinue PO intake until video swallow study.
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
[2023-07-15] MEDS: LOVENOX 40 MG SC (18:01)
[2023-07-15 19:05] VITALS: BP 122/82
[2023-07-15] MEDS: DITROPAN PO (20:16)
[2023-07-15 23:00] VITALS: BP 115/62
[2023-07-16] MEDS: TYLENOL 650 MG PO ×4 (00:32→19:50)
[2023-07-16] MEDS: MIRALAX 17 GRAMS PO (00:37)
[2023-07-16] MEDS: ZOSYN 50 IV ×2 (04:08→10:03)
[2023-07-16] MEDS: NSS 1000 IV ×2 (04:08→14:38)
[2023-07-16] MEDS: VANCOCIN 275 MG IV (06:14)
[2023-07-16 06:19] LABS: % Basophils 0.5 % (0-2); % Eosinophils 1.9 % (0-6); % Immature Granulocytes 0.7 % (0-0.5); % Monocytes 8.8 % (1.7-9.3); % Neutrophils 78.1 % (42.2-75.2); Absolute Eosinophils 0.2 10^3/uL (0-0.7); Absolute Immature Granulocytes 0.1 10^3/uL (0-0.05); Absolute Lymphocytes 0.9 10^3/uL (1.2-3.4); Absolute Monocytes 0.8 10^3/uL (0.1-0.6); Absolute Neutrophils 6.6 10^3/uL (1.4-6.5); Hematocrit 34.1 % (39.0-52.0); Hemoglobin 11.4 g/dL (13.0-18.0); Mean Corp Hgb Conc. 33.4 g/dL (33.0-37.0); Mean Corpuscular Hgb 28.7 pg (27.0-31.0); Mean Corpuscular Volume 85.9 fL (80.0-94.0); Mean Platelet Volume 8.7 fL (7.4-10.4); Nucleated Red Blood Cells % 0 % (-); Platelet Count 225 10^3/uL (130-400); Red Blood Cell Count 3.97 10^6/uL (4.70-6.10); Red Cell Dist. Width 13.8 % (11.5-14.5); White Blood Cell Count 8.5 10^3/uL (4.8-10.8)
[2023-07-16 06:32] LABS: Vancomycin Trough 14.6 ug/ml (5-20)
[2023-07-16 06:47] LABS: ALT (SGPT) 39 U/L (0-50); AST (SGOT) 26 U/L (17-59); Albumin 2.4 g/dl (3.5-5.0); Alkaline Phosphatase 89 U/L (38-126); Blood Urea Nitrogen 8 mg/dl (9-20); Calcium 8.1 mg/dl (8.4-10.2); Carbon Dioxide 26 mmol/L (22-30); Chloride 108 mmol/L (98-107); Estimated Creatinine Clearance > 125 ml/min; Glucose 91 mg/dl (70-99); Sodium 140 mmol/L (135-145); Total Bilirubin 0.5 mg/dl (0.2-1.3); eGFR > 60.00
[2023-07-16 07:00] VITALS: BP 128/79
[2023-07-16] MEDS: DITROPAN PO ×3 (07:46→21:42)
[2023-07-16] MEDS: LIORESAL 60 MG PO (07:47)
[2023-07-16] MEDS: CRESTOR PO (07:49)
[2023-07-16] MEDS: CRESTOR 10 MG PO (07:54)
--- NOTE | 2023-07-16 09:02 | PHA.VAN.FU ---
Vancomycin Assessment / Plan
- Assessment
Renal Function: Stable
WBC's are: WNL
In the past 24 hrs, patient has been: Afebrile
Concomitant Antimicrobials: piperacillin/tazobactam
- Assessment - Therapeutic Drug Monitoring
Extrapolated Cmax (mcg/mL): 29
Peak level was drawn: Appropriately (drawn ~1.7H after end of previous infusion)
Extrapolated Cmin (mcg/mL): 14.7
Trough Drawn: Appropriately
Levels were drawn: At steady state (levels drawn after 4th maintenance dose)
Calculated AUC (mcg*h/mL): 507
Calculated ke: 0.0646
Calculated half life (H): 10.7
Calculated Vd (L): 76 (~1 L/kg)
Calculated Vanc CL (ml/min): 82
- Dosing Plan
Adjust Regimen to: Vanc 1000mg Q12H starting at 1800
New Regimen Predicts: AUC (419), Peak (24.3), Trough (11.9)
AUC therapeutic today but will reduce dosing slightly to provide lowest effect therapeutic dose to minimize risk for nephrotoxicity
- Monitoring Plan
No level(s) ordered at this time: consider repeat levels in next few days
- Follow Up
Pharmacy will continue to follow.
Vancomycin Follow UP
- -
Patient Age: 52
Patient Sex: Male
Vancomycin Day #: 4
Indication: Skin And Soft Tissue
Requesting Provider: Edi Groves / Dr. Cerna
Pertinent Antimicrobial Allergies:
NKDA
Height / Weight:
Height 5 ft 10 in
Actual Weight 72.773 kg
IBW in k KG
Adjusted BW in k.7 KG
Pertinent Past Medical History: Quadriplegic
- Vital Signs / Lab Results
Temp Pulse Resp BP Pulse Ox
99.1 F 91 17 128/79 99
07/16/23 07:00 07/16/23 07:00 07/16/23 07:00 07/16/23 07:00 07/16/23 07:00
Lab Results - Hematology
07/13/23 07/14/23 07/15/23
18:52 06:17 06:54
WBC 6.2 6.8 8.0
07/16/23
06:07
WBC 8.5
Lab Results - Chemistry
07/13/23 07/14/23 07/15/23
18:52 06:17 06:54
BUN 19 15 10
Creatinine 0.8 0.7 0.6 L
Estimated Creat Clear 113 > 125 > 125
Albumin 3.0 L 2.5 L 2.2 L
07/16/23
06:07
BUN 8 L
Creatinine 0.7
Estimated Creat Clear > 125
Albumin 2.4 L
07/13/23 07/13/23
18:52 22:45
Lactic Acid 1.5 Cancelled
Microbiology Results
07/13/23 18:52 Wound Culture - Preliminary
Sacral Staphylococcus aureus
Streptococcus pyogenes
Gram Stain - Preliminary
07/13/23 18:52 Blood Culture - Final
Blood/Venous Streptococcus pyogenes
Gram Stain - Final
07/15/23 06:54 Blood Culture - Preliminary
Blood/Venous No Growth in 24 hours- Final report to follow
07/13/23 19:58 Blood Culture - Preliminary
Blood/Venous No Growth in 48 hours- Final report to follow
07/14/23 16:05 Blood Culture - Preliminary
Blood/Venous No Growth in 24 hours- Final report to follow
07/13/23 18:52 Urine Culture - Final
Urine No Significant Growth
07/13/23 20:53 MRSA Screen - Final
Nose Staph aureus MRSA
Therapeutic Drug Monitoring
Vancomycin Peak 26.0 ug/ml (18) 07/15/23 21:11
Vancomycin Trough 14.6 ug/ml (5-20) 07/16/23 06:07
[2023-07-16] MEDS: DAKIN'S SOLUTION 0.125% 1/4 STRENGTH 473 ML TOPICAL ×2 (09:18→21:42)
--- NOTE | 2023-07-16 10:24 | CON.MD ---
Consultation - Medical
-
Referring Provider: Dr. Mark Rodriguez
Chief Complaint: Neck pain after fall
History of Present Illness: 52-year-old male with PMH (as below including tetraplegia) presented to [facility] on 07/13/2023 with a sacral wound, fever with chills and occasional diarrhea, cough for approximately 2 days. Also with
constipation from neurogenic bowel that he manages with an enema. Has tetraplegia since 1996 with a T8 level, neurogenic bowel and bladder. Does self-catheterization program for neurogenic bladder. Found to have sepsis with concern of sacral
wound etiology. CT scan with no abscess or signs of osteomyelitis. Had debridement of fibrous tissue overlying his ulcer measuring 0.5 x 0.5 x 0.5 cm. Continues with vancomycin and Zosyn. Patient notes some difficulty with swallowing and neck
pain after having a fall out of his wheelchair. Seen by speech who recommended Pur�ed diet and video swallow study.
Patient notes since being in the correctional facility he has to transfer out of the beds differently, he puts his head down on the chair and then uses his arms to help slide over since he has weak triceps. Doing this on a routine basis has caused
significant strain in the neck muscles and this has become quite painful. He denies any falls or trauma to the head. Neck muscles have been feeling better, it was bilateral but now mostly on the right. Is improved. With the onset of the
increased muscle pain and spasms he did have some more difficulty with swallowing but is now doing better with it as the pain in the neck has improved a bit. Spoke with Dr. Rodriguez and patient is going to be upgraded in his diet. Has been
constipated and usually does well with intermittent use of enemas. He is happy to go on a traditional bowel regimen at this time since he is in the hospital and not able to do his normal routine on his own. He also intermittent caths 1-2 times a
day and is requesting to be intermittent cath at night and as needed. He does have a spastic bladder and get Botox injections for this. He would like to keep the condom catheter for any overflow or spastic bladder concerns that he has. At home he
does note he will intermittent cath when he has autonomic dysreflexia as the frequent cause of the autonomic dysreflexia. He currently does not have any special mattress in the correctional facility at home he has a Tempur-Pedic mattress. Has not
had some skin problems for a little while. Has had to change how he does his weight shifting and mobility into the wheelchair because he has a different and easier set up at home.
Takes baclofen 60 mg daily. Traditionally patients take 20 mg 3-4 times a day. He noticed he started off with that originally but over the years found that 60 mg in the morning works best for him. Is not overly sedated. Does not have any rebound
concerns typically until approximately 1 AM which does not generally bother him.
Currently with moderate right neck pain tender to the touch particularly at the base of the skull. Improved with rest. Initially when pain was most significant did have some tingling down the right arm, has resolved as muscle spasms have resolved.
Denies any new neurologic concerns otherwise. No worsening weakness, numbness, or tingling from his baseline.
Past Medical History: Cervical spinal cord injury with neurogenic bowel and bladder, HLD
Procedure History: Cervical spinal fusion, bilateral shoulder reconstruction, renal stent, buttocks skin graft
Family History: Father at 42 of unknown cancer, mother with dementia
Social History:
Functional Level Premorbidly: Independent with all activities
Functional Level Currently:�� Supervision supine to sit, mod assist sit to supine
Tobacco: Denies
Alcohol: Denies
Drug use: Denies
[facility]. Prior to this lives alone in a 1 floor ranch that is accessible.
Driving: Yes
Occupation: Works part-time
Allergies:
Allergy/AdvReac Type Severity Reaction Status Date / Time
No Known Allergies Allergy Unverified 07/13/23 18:13
Review of Systems:
Constitutional: (x) abNormal _fatigue
Eye: (x) Normal _
Ear/Nose/Throat: (x) Normal _
Respiratory: (x) Normal _
Cardiovascular: (x) Normal _
Gastrointestinal: (x) Normal _
Genitourinary: (x) Normal _
Musculoskeletal: (x) abNormal _neck pain as above
Integumentary: (x) abNormal _sacral wound
Neurologic: (x) abNormal _stable neurologic exam from his prior spinal cord injury
Psychiatric: (x) Normal _
Endocrine: (x) Normal _
Hematologic/Lymphatic: (x) Normal _
Allergic/Immunologic: (x) Normal _
Medications:
Active Current Visit Medication List
Category Date Time Status
0.9% Sodium Chloride 1000 ml [Nss] 1,000 ml Med 07/13/23 21:33 Active
IV 80 mls/hr
Acetaminophen [Tylenol] Med 07/13/23 21:33 Active
650 mg PO Q4HPRN PRN
Baclofen [Lioresal] Med 07/14/23 08:00 Active
60 mg PO DAILY
Chlorpheniramine [Chlortrimeton] Med 07/13/23 21:33 Active
4 mg PO BIDPRN PRN
Enoxaparin Sodium [Lovenox] Med 07/14/23 18:00 Active
40 mg SC QPM
Flush (0.9% Sodium Chloride) [Flush (Nss)] Med 07/13/23 22:00 Active
See Dose Instructions IV PER PROTOCOL
Guaifenesin Solution [Robitussin] Med 07/13/23 21:53 Active
400 mg PO BIDPRN PRN
Meloxicam [Mobic] Med 07/13/23 21:33 Active
15 mg PO DAILYPRN PRN
Oxybutynin Chloride [Ditropan] Med 07/14/23 08:00 Active
5 mg PO BID
Petrolatum/Mineral Oil [Hydrophor] Med 07/13/23 21:52 Active
1 applic TOPICAL DAILYPRN PRN
Phosphate Enema [Fleet Phosphate Enema-Adult] Med 07/13/23 21:33 Active
118 ml RECTAL [id number] PRN
Piperacillin/Tazo 3.375 Gram [Zosyn] Med 07/13/23 22:00 Active
3.375 gram in 50 ml IV Q6H
Polyethylene Glycol Powder [Miralax] Med 07/13/23 21:33 Active
17 grams PO DAILYPRN PRN
Rosuvastatin Calcium [Crestor] Med 07/14/23 08:00 Active
10 mg PO DAILY
Sodium Hypochlorite [Dakin's Solution 0.125% / Med 07/14/23 12:00 Active
Strength]
See Dose Instructions TOPICAL BID
Vancomycin 1 Gram/200 ml [Vancocin] Med 07/16/23 18:00 Active
1 gram in 200 ml IV Q12H
Vitals:
Temp Pulse Resp BP Pulse Ox
99.1 F 91 17 128/79 99
07/16/23 07:00 07/16/23 07:00 07/16/23 07:00 07/16/23 07:00 07/16/23 07:00
Height 5 ft 10 in
Actual Weight 72.773 kg
Body Mass Index (BMI) 23.0
Physical Exam:
General Appearance/Observation: Pleasant male in no apparent distress.
Mood/Affect: Appropriate
Integumentary/Operative Site:
�� Pressure Ulcer Evaluation: absent over heels. Sacral pressure ulcer with minimal slough.
Eyes: Conjunctiva/Lids: normal ��� Pupils: pupils equal round and reactive to light and Accommodation
Ears/Nose/Throat: oral mucosa moist,� throat clear.������������ Lips/Teeth/Gums: normal
Neck: Significant right more than left trapezius and cervical muscle spasms with tenderness most significant at the base of the right occiput. No erythema, warmth, lesions
Cardiovascular: Heart: regular, no murmur
Pulses: dorsalis pedis 2+ bilaterally
Respiratory: Respiratory Effort/Chest Expansion: normal ������ Auscultation: Clear to auscultation bilaterally
Gastrointestinal: abdomen not tender, no distension, normal abdominal bowel sounds
Genitourinary: No Tavera
Extremities: Edema: None Cyanosis: None Trophic changes: None
Neurology Exam:
Orientation: Alert, Oriented to self, Time, Place
Memory: Intact immediately and at 3 minutes
Repetition: Intact
Comprehension: Intact
Two step command: Intact
Naming: Intact
Cranial Nerves:
�� CNII: Pupillary light reflex: Intact��� Visual Field: Intact
�� CN III, IV, : Extraocular muscles: Intact
�� CN V: Facial Sensation at Forehead: Intact, Maxilla: Intact, Mandible: Intact
�� CN VII: Facial movement: Symmetric
�� CN VIII: Hearing: Normal
�� CN IX/X: Speech & swallow: Normal, Position of Uvula: Midline
�� CN XI: Shoulder shrug: Symmetric
�� CN XII: Tongue protrusion: Midline
Sensory:
�� Light touch: Intact in bilateral upper and lower extremities, no extinction to double simultaneous stimulation
Reflexes:
�� Biceps: 2+ bilaterally
�� Brachioradialis: 2+ bilaterally
�� Triceps: 2+ bilaterally
Musculoskeletal:Motor: (Manual muscle scale 0-5)
Muscle SA EF WE EE FF FA HF KE DF EHL PF
Right� 4 5 4 4 4 0 0 0 0 0 0
Left 4 5 4 2+ 4 0 0 0 0 0 0
Tone: Normal in all extremities
Range of Motion: Decreased shoulders
-Muscle atrophy in bilateral lower extremities
Lab Results
Laboratory Data
07/16/23 06:07
07/16/23 06:07
Total Bilirubin 0.5 mg/dl (0.2-1.3) 07/16/23 06:07
AST 26 U/L (17-59) 07/16/23 06:07
ALT 39 U/L (0-50) 07/16/23 06:07
Alkaline Phosphatase 89 U/L (38-126) 07/16/23 06:07
Total Protein 5.0 g/dl (6.3-8.2) L 07/16/23 06:07
Albumin 2.4 g/dl (3.5-5.0) L 07/16/23 06:07
Diagnostic Results: as per HPI
Assessment
52-year-old male with PMH (Cervical spinal cord injury with neurogenic bowel and bladder, HLD) with 07/13/2023 with a sacral ulcer, sepsis with concern of sacral wound etiology neck pain and difficulty swallowing from what appears to be significant
muscle spasms secondary to overuse while trying to transfer differently into his wheelchair, swallowing difficulty likely from muscle spasms which is improving, neurogenic bowel and bladder.
Plan
PM&R PT/OT to increase independence with ADLs, improve balance, coordination, endurance, strength, mobility, community reintegration, decreased burden of care on others and family education.
Neck pain: Appears to be from overuse with increased muscle spasm and particularly tender over the right occiput at attachment of trapezius. Overall has been getting better on both sides but still more of a problem on the right. Patient feels this
is related to having to put his head down on the wheelchair and turning to transfer.
-Already on baclofen 60 mg daily, would suggest trying Bengay, can try heat or ice if needed.
-Sitting in a position where neck is head forward, remove pillows and showed proper positioning of the neck to help unload the stress on the trapezius muscles which should also be of benefit.
-No new neurologic symptoms per patient from his baseline spinal cord issues.
-Can have some paresthesias associated with significant myofascial pain particularly in the trapezius muscle.
-If any worsening neurologic function or new difficulties, could consider CT of the neck.
Sepsis: Antibiotics per ID, thought possibly from sacral wound.
-Infection can make spasms worse.
Sacral pressure ulcer:�
-Vitamin C, zinc, multivitamin.�
-Weight shifts in wheelchair and bed.�
-Will need a Roho cushion when in wheelchair, would benefit from a specialty mattress to prevent further breakdown.�
-Suggest pressure-relief boots to prevent heel ulcers although patient refuses, has not been using them for many many years.
-Monitor skin closely each shift
-Protein supplement
Anemia: Likely multifactorial.� Management per primary team. Continue to monitor.
Pain: acetaminophen as needed.
Neurogenic bowel: Colace, Senna, and bisacodyl bowel program.
Neurogenic bladder: Intermittent cath at night and as needed particularly with dysreflexia symptoms
DVT Prophylaxis: Mechanical and Lovenox.
Pulmonary: Incentive spirometry
Safety: Continue to reinforce assistance with all transfers.
Code Status:� Full code
Dispo (date/plan/equipment needs): Home with family care.
Discharge Destination: Return to prior living arrangement.
Functional and Medical Goals: Continue at baseline functioning at home, will be difficult with current setting versus home which is better set up for transfers and adjustment of body in bed with vanna system.
-A total of 80 minutes were spent with the patient preparing for the evaluation, obtaining history, performing examination and evaluation, counseling, data review, case management, care coordination, order packer or packager, and EMR documentation. Case
discussed with Dr. Rodriguez.
Thank you for allowing me to care for your patient. Please contact me with any questions or concerns.
--- NOTE | 2023-07-16 11:16 | W.PN.ID1 ---
Date of Service
Date of Service: July 16, 2023
Today's Communication
Transition to Linezolid 600mg po bid through 07/22/23.
ID will sign off. Call prn.
Assessment / Plan
# Sacral decubitus wound with cellulitis
# Strep pyogenes bacteremia - wound source
# Fever- resolved
# MRSA colonized
# Quadriplegia
# Incarcerated
- Wound cx Strep pyogenes, Staph aureus
- No need for surgical intervention, per Surgery.
- Repeat blood cx's negative to date
- Deescalate vanco/zosyn to Linezolid 600mg po bid through 07/22/23.
-Continue local wound care.
ID will sign off.
#Additional Past Medical History:
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
Neurogenic bladder straight caths 4 times a day
Dyslipidemia
With history of skin graft to left buttock decubitus wound
Chronic constipation
Spinal fusion
Shoulder reconstruction
Chief Complaint
-: Cellulitis and Bacteremia
Subjective / Review of Systems
Feeling better today.
Vital Signs / Physical Exam
Vital Signs
Vital Signs
Temp Pulse Resp BP Pulse Ox
99.1 F 91 17 128/79 99
07/16/23 07:00 07/16/23 07:00 07/16/23 07:00 07/16/23 07:00 07/16/23 07:00
Physical Exam
Constitutional: No Acute Distress
Cardiovascular: Regular Rate and S1/S2
Pulmonary: Clear
Gastrointestinal: Soft and Non Tender
Neurological: AO x 3; Negative Meningeal Signs
Objective Data
Lab Data
Lab Results
07/16/23 06:07
07/16/23 06:07
Estimated Creat Clear > 125 ml/min 07/16/23 06:07
Lactic Acid Cancelled 07/13/23 22:45
Total Bilirubin 0.5 mg/dl (0.2-1.3) 07/16/23 06:07
AST 26 U/L (17-59) 07/16/23 06:07
ALT 39 U/L (0-50) 07/16/23 06:07
Alkaline Phosphatase 89 U/L (38-126) 07/16/23 06:07
Most recent labs reviewed.
Micro Results:
07/13/23 18:52 Wound Culture - Preliminary
Sacral Staphylococcus aureus
Streptococcus pyogenes
Diptheroids
Gram Stain - Preliminary
07/13/23 18:52 Blood Culture - Final
Blood/Venous Streptococcus pyogenes
Gram Stain - Final
07/15/23 06:54 Blood Culture - Preliminary
Blood/Venous No Growth in 24 hours- Final report to follow
07/13/23 19:58 Blood Culture - Preliminary
Blood/Venous No Growth in 48 hours- Final report to follow
07/14/23 16:05 Blood Culture - Preliminary
Blood/Venous No Growth in 24 hours- Final report to follow
07/13/23 18:52 Urine Culture - Final
Urine No Significant Growth
07/13/23 20:53 MRSA Screen - Final
Nose Staph aureus MRSA
07/13/23 19:42 Influenza Types A & B (SADIE) - Final
Nasal Swab Negative for Influenza A & B, NAAT
Negative results must be combined with clinical observations
and patient history.
Nucleic Acid Amplification test (NAAT)performed on the
[employer]vector platform.
07/13/23 CXR: No acute cardiopulmonary process.
07/14/23 CT a/p: Abnormal soft tissue attenuation within subcutaneous soft tissues extending from the level of the distal sacrum to the anus compatible with the given history of wound and associated inflammatory changes. No signs of abscess formation
or drainable collection. No abnormal osteolysis of the sacrum or coccyx to suggest osteomyelitis is identified at CT. Mild concentric mural thickening of the rectum with small amount of adjacent inflammatory stranding consistent with some form of
proctitis. Mild right hydronephrosis. There is right renal cortical scarring and there are no filling defects within the right ureter, chronic reflux is a consideration.
Care Review
Plan reviewed with: Physician (Dr. Rodriguez)
[2023-07-16] MEDS: ZYVOX 600 MG PO ×2 (11:38→21:43)
--- NOTE | 2023-07-16 12:48 | PTOTSP ---
Video Swallow Study
Summary: Patient presents with WFL oral and mild pharyngeal dysphagia. Suspect pharyngeal changes are due to anatomical differences (i.e., prior ACDF, what appeared to be possible pre-vertebral swelling resulting in absent epiglottic inversion,
decreased pharyngeal stripping wave, and decreased opening of PES). Spontaneous swallows reduced pharyngeal residue and cleared upper laryngeal penetration. Please see patient care note for full details of penetration/aspiration and swallowing
physiology.
Recommend:
1. IDDSI Level 6 Soft/bite sized, IDDSI Level 0 Thin Liquids
2. Medications - as best tolerated
3. Strategies: upright to 90 degrees, small single sips/bites, slow rate, multiple swallows (does this independently), alternate solids and liquids as needed
4. Will follow up briefly for patient education/instruction in compensations and to trial advanced solids as appropriate/patient willing.
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
[2023-07-16 13:45] VITALS: BP 119/64; PULSE 92; PULSE 99; O2SAT 98
[2023-07-16] MEDS: SENOKOT 17.1999999999999993 MG PO (14:38)
[2023-07-16 15:00] VITALS: BP 140/85
[2023-07-16] MEDS: LOVENOX 40 MG SC (17:04)
[2023-07-16] MEDS: BenGay-Like 1 APPLIC TOPICAL ×2 (17:05→23:11)
[2023-07-16] MEDS: BenGay-Like TOPICAL (23:07)
[2023-07-16 23:35] VITALS: BP 141/83
[2023-07-17] MEDS: TYLENOL 650 MG PO ×2 (00:03→17:58)
[2023-07-17 07:00] VITALS: BP 136/83
[2023-07-17 08:11] LABS: % Basophils 0.4 % (0-2); % Eosinophils 2.6 % (0-6); % Immature Granulocytes 0.8 % (0-0.5); % Monocytes 7.6 % (1.7-9.3); % Neutrophils 75.6 % (42.2-75.2); Absolute Eosinophils 0.2 10^3/uL (0-0.7); Absolute Immature Granulocytes 0.1 10^3/uL (0-0.05); Absolute Monocytes 0.6 10^3/uL (0.1-0.6); Absolute Neutrophils 5.7 10^3/uL (1.4-6.5); Hematocrit 34.8 % (39.0-52.0); Hemoglobin 11.6 g/dL (13.0-18.0); Mean Corp Hgb Conc. 33.3 g/dL (33.0-37.0); Mean Corpuscular Hgb 28.5 pg (27.0-31.0); Mean Corpuscular Volume 85.5 fL (80.0-94.0); Mean Platelet Volume 8.7 fL (7.4-10.4); Nucleated Red Blood Cells % 0 % (-); Platelet Count 284 10^3/uL (130-400); Red Blood Cell Count 4.07 10^6/uL (4.70-6.10); Red Cell Dist. Width 13.8 % (11.5-14.5); White Blood Cell Count 7.6 10^3/uL (4.8-10.8)
[2023-07-17] MEDS: ZYVOX 600 MG PO ×2 (08:36→20:41)
[2023-07-17] MEDS: VITAMIN C 500 MG PO (08:36)
[2023-07-17] MEDS: CRESTOR 10 MG PO (08:36)
[2023-07-17] MEDS: DITROPAN 5 MG PO (08:36)
[2023-07-17] MEDS: LIORESAL 60 MG PO (08:37)
[2023-07-17] MEDS: THERAGRAN 1 TABLET PO (08:37)
[2023-07-17] MEDS: BenGay-Like 1 APPLIC TOPICAL ×2 (08:38→16:57)
[2023-07-17 09:21] LABS: ALT (SGPT) 55 U/L (0-50); AST (SGOT) 58 U/L (17-59); Albumin 2.4 g/dl (3.5-5.0); Alkaline Phosphatase 96 U/L (38-126); Blood Urea Nitrogen 6 mg/dl (9-20); Calcium 8.2 mg/dl (8.4-10.2); Carbon Dioxide 27 mmol/L (22-30); Chloride 107 mmol/L (98-107); Estimated Creatinine Clearance > 125 ml/min; Glucose 86 mg/dl (70-99); Potassium 4.3 mmol/L (3.5-5.1); Sodium 137 mmol/L (135-145); Total Bilirubin 0.4 mg/dl (0.2-1.3); eGFR > 60.00
[2023-07-17] MEDS: DAKIN'S SOLUTION 0.125% 1/4 STRENGTH 473 ML TOPICAL (09:50)
[2023-07-17] MEDS: SENOKOT PO (11:06)
[2023-07-17] MEDS: BenGay-Like TOPICAL ×2 (13:28→22:53)
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
[2023-07-17 15:00] VITALS: BP 119/80
[2023-07-17] MEDS: LOVENOX 40 MG SC (17:07)
[2023-07-17] MEDS: DITROPAN PO ×2 (20:41→20:49)
[2023-07-17] MEDS: DAKIN'S SOLUTION 0.125% 1/4 STRENGTH 1 ML TOPICAL (20:43)
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
[2023-07-17 22:51] VITALS: BP 129/83
[2023-07-18] MEDS: TYLENOL 650 MG PO ×2 (00:25→23:03)
[2023-07-18 07:50] VITALS: BP 125/90
[2023-07-18] MEDS: ZYVOX 600 MG PO ×2 (08:06→21:15)
[2023-07-18] MEDS: CRESTOR 10 MG PO (08:06)
[2023-07-18] MEDS: LIORESAL 60 MG PO (08:06)
[2023-07-18] MEDS: VITAMIN C 500 MG PO (08:06)
[2023-07-18] MEDS: DITROPAN 5 MG PO ×2 (08:08→21:15)
[2023-07-18] MEDS: THERAGRAN 1 TABLET PO (08:08)
[2023-07-18] MEDS: BenGay-Like 1 APPLIC TOPICAL ×4 (08:09→21:15)
[2023-07-18] MEDS: DAKIN'S SOLUTION 0.125% 1/4 STRENGTH 15 ML TOPICAL (08:10)
[2023-07-18] MEDS: SENOKOT PO (11:27)
[2023-07-18] MEDS: MOBIC 15 MG PO (14:21)
[2023-07-18 15:55] VITALS: BP 128/84
[2023-07-18] MEDS: LOVENOX 40 MG SC (17:30)
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
[2023-07-18] MEDS: DAKIN'S SOLUTION 0.125% 1/4 STRENGTH 1 ML TOPICAL (21:24)
[2023-07-18 23:20] VITALS: BP 109/73
[2023-07-19 07:00] VITALS: BP 130/85
[2023-07-19] MEDS: ZYVOX 600 MG PO ×2 (09:42→19:54)
[2023-07-19] MEDS: VITAMIN C 500 MG PO (09:42)
[2023-07-19] MEDS: LIORESAL 60 MG PO (09:42)
[2023-07-19] MEDS: CRESTOR 10 MG PO (09:42)
[2023-07-19] MEDS: DITROPAN 5 MG PO ×2 (09:43→19:54)
[2023-07-19] MEDS: THERAGRAN 1 TABLET PO (09:43)
[2023-07-19] MEDS: BenGay-Like TOPICAL ×4 (09:44→23:07)
[2023-07-19] MEDS: SENOKOT PO (10:10)
[2023-07-19] MEDS: FLEET PHOSPHATE ENEMA-ADULT 118 ML RECTAL (10:58)
[2023-07-19] MEDS: DAKIN'S SOLUTION 0.125% 1/4 STRENGTH 473 ML TOPICAL ×2 (11:04→23:19)
--- NOTE | 2023-07-19 13:42 | PTCARENOTE ---
No BM in ~3days. Fleet enema given, w/ good result, passed moderate sized soft brown BM. Wound care provided to sacral decub. Complains of neck pain, but when offered Tylenol or topical analgesic patient refuses.
[2023-07-19] MEDS: MOBIC 15 MG PO (14:43)
[2023-07-19 15:00] VITALS: BP 126/80
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
[2023-07-19] MEDS: LOVENOX 40 MG SC (19:55)
--- NOTE | 2023-07-19 20:00 | PTCARENOTE ---
Assessment unchanged from prior. Repositioned for comfort. Offers no complaints at this time. Left w/ call [facility] in reach.
[2023-07-19 23:35] VITALS: BP 112/66
[2023-07-20 07:00] VITALS: BP 142/73
[2023-07-20] MEDS: LIORESAL 60 MG PO (08:00)
[2023-07-20] MEDS: CRESTOR 10 MG PO (08:00)
[2023-07-20] MEDS: DITROPAN 5 MG PO (08:00)
[2023-07-20] MEDS: THERAGRAN 1 TABLET PO (08:01)
[2023-07-20] MEDS: VITAMIN C 500 MG PO (08:01)
[2023-07-20] MEDS: ZYVOX 600 MG PO (08:01)
[2023-07-20] MEDS: BenGay-Like TOPICAL ×2 (08:08→14:36)
--- NOTE | 2023-07-20 08:55 | PTOTSP ---
Speech Language Pathology
Pt seen for dysphagia tx. Had requested to RN for diet upgrade. Pt had just finished breakfast of IDDSI 6 solids/thin liquids. He denied any issues. Trialed regular solids and thin liquids. Adequate mastication, bolus formation, and A-P transit
noted with no oral residue. No overt signs of aspiration. Pt denied any globus sensation. He also denied any nasal regurgitation of P.O. which he reported on admission. He thinks he can manage regular solids as long as he takes small bites.
Recommmend:
(1) Upgrade to regular solids/thin liquids
(2) Aspiration precautions: double swallow with dry solids, small bites, slow rate
(3) Meds as tolerated
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
[2023-07-20] MEDS: DAKIN'S SOLUTION 0.125% 1/4 STRENGTH 1 ML TOPICAL (10:23)
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
--- NOTE | 2023-07-20 11:09 | W.DCSUMMARY ---
Discharge Summary
Discharge Data
Date of Admission: 07/13/23
Date of Discharge: 07/20/23
-
Pending Results: No
Hospital Course
52-year-old male past medical history of quadriplegia, neurogenic bladder self-catheterization, hyperlipidemia, chronic constipation, spinal fusion, sacral wound who is presenting from [facility] with worsening of sacral
wound. Also urine color changes and was also complaining of fevers and chills. Patient was found to be severe sepsis secondary to cellulitis of sacral wound and with bacteremia. Infectious disease was consulted and antibiotics was managed by
them. General surgery was consulted and they did excisional debridement and noticed a minimal amount of fibrinous tissue overlying the ulcer. Wound depth of excision site was small. Tissue had a light brown in appearance. No odor no purulence or
pocket identified. Wound care was consulted. Patient was also complaining of neck pain which was seen musculoskeletal. Physiatry and ENT was consulted. Patient diet was initially downgraded and after speech evaluation patient diet was eventually
upgraded to regular diet. Patient was tolerating regular diet. Patient was recommended to take NSAIDs for his musculoskeletal neck pain. Patient was stable on room air. Vital signs were stable. IV antibiotics were transitioned to p.o.
linezolid. Patient was complaining of constipation and received bowel regimen leading to resolution of constipation. Patient be discharged back to the [facility].
Discharge Plan
-
Patient Disposition: Fdc
Discharge Diagnosis/Procedures: Sepsis 2/2 sacral wound cellulitis
Strep Pyogenes bacteremia
Dysphagia
Constipation
Condition: Fair
Diet: Regular
Activity: As tolerated
Driving Restrictions: No driving
Activity Restrictions/Additional Instructions:
Wound Care Instructions Sacral Wound- Clean with Dakins 1/4 strength, cover with dry dressing (silicone foam or ABD). Change BID and PRN for drainage or if loose. May add alginate for moderate to heavy drainage.
[facility]
-Vitamin C, zinc, multivitamin.�
-Weight shifts in wheelchair and bed.�
-Will need a Roho cushion when in wheelchair, would benefit from a specialty mattress to prevent further breakdown.�
-Suggest pressure-relief boots to prevent heel ulcers although patient refuses, has not been using them for many many years.
-Monitor skin closely each shift
-Protein supplement
Referrals:
[facility] [Family Provider] -
Prescriptions:
New
ascorbic acid (vitamin C) [Vitamin C] 500 mg Tablet
500 mg PO DAILY 30 Days Qty: 30 0RF
linezolid 600 mg Tablet
600 mg PO BID Qty: 5 0RF
docusate sodium 100 mg Capsule
100 mg PO BID Qty: 60 0RF
multivitamin with folic acid [Tab-A-Alida] 400 mcg Tablet
1 tab PO DAILY 30 Days Qty: 30 0RF
Continued
chlorpheniramine maleate 4 mg Tablet
4 mg PO BIDPRN PRN (Reason: allergies)
lubricants [K-Y Lubricating] Gel
1 ea TOPICAL DAILY
meloxicam 15 mg Tablet
15 mg PO DAILYPRN PRN (Reason: mild pain)
guaifenesin 200 mg Tablet
400 mg PO BIDPRN PRN (Reason: cough)
baclofen 20 mg Tablet
60 mg PO DAILY
Fleet Enema 19-7 gram/118 mL Enema
118 ml MN [id number] PRN (Reason: constipation)
oxybutynin chloride 5 mg Tablet
5 mg PO BID
rosuvastatin 10 mg Tablet
10 mg PO DAILY
Cetaphil Cream
1 applic TOPICAL DAILYPRN PRN (Reason: dryness)
Changed
polyethylene glycol 3350 [Miralax] 17 gram Powder In Packet
17 g PO DAILY Qty: 0 0RF
Discharge Orders:
Discharge Patient (As Directed); Ordered 07/20/23
Ordered By: Bernardo Valdez
Discharge Date and Time
Print Language: YORUBA
[2023-07-20] MEDS: SENOKOT PO (11:23)
--- NOTE | 2023-07-20 11:54 | CM ---
Reviewed chart, received notification that patient has been medically cleared for discharge. Provided [employer] [facility] [employer] specialist with fax# [phone] and phone# [phone], to [facility] provided to RN for report. Patient will be escorted back to longterm.
Plan: Case management will continue to follow and assist with discharge planning. Patient medically cleared to return back to Longterm today.
[2023-07-20 14:00] VITALS: BP 98/76
== END 2023-07-20 15:52 | DRG 853 ==
LOC: 3 WEST ACU 20:39
PROVIDERS: Clinical Nurse Specialist Family Health; ADMITTING PHYSICIAN Hospitalist; ATTENDING PHYSICIAN Hospitalist; CONSULT PHYSICIAN Internal Medicine Infectious Disease; CONSULT PHYSICIAN Physical Medicine & Rehabilitation; CONSULT PHYSICIAN Surgery; EMERGENCY PHYSICIAN Emergency Medicine
PROC: 0JB70ZZ Excision of Back Subcutaneous Tissue and Fascia, Open Approach (ICD-10-PCS; 2023-07-14)
DX: A40.0 Sepsis due to streptococcus, group A (principal); G82.50 Quadriplegia, unspecified; K59.2 Neurogenic bowel, not elsewhere classified; L03.312 Cellulitis of back [any part except buttock and flank]; D64.9 Anemia, unspecified; R65.20 Severe sepsis without septic shock; L89.152 Pressure ulcer of sacral region, stage 2; G90.4 Autonomic dysreflexia; S24.103S Unspecified injury at T7-T10 level of thoracic spinal cord, sequela; E78.00 Pure hypercholesterolemia, unspecified; K59.09 Other constipation; N31.9 Neuromuscular dysfunction of bladder, unspecified; N32.89 Other specified disorders of bladder; W05.0XXA Fall from non-moving wheelchair, initial encounter; M54.2 Cervicalgia; M62.838 Other muscle spasm; R13.10 Dysphagia, unspecified; R19.7 Diarrhea, unspecified; R73.9 Hyperglycemia, unspecified; Z79.1 Long term (current) use of non-steroidal anti-inflammatories (NSAID); Z79.899 Other long term (current) drug therapy; Z98.1 Arthrodesis status
CPT/HCPCS: 71046; 74177; 74230; 80053; 80202; 81003; 81015; 83605; 85025; 87040; 87070; 87077; 87086; 87147; 87186; 87205; 87502; 87811; 92526; 92610; 92611; 96361; 96365; 97110; 97163; 97167; 97530; 99285; Q9967

== ENCOUNTER 2023-07-29 22:51 | Inpatient (IN) | payer OTHER, SELFPAY ==
[2023-07-29 20:37] VITALS: BP 135/63
[2023-07-29 21:20] LABS: % Basophils 0.6 % (0-2); % Eosinophils 1.3 % (0-6); % Immature Granulocytes 0.6 % (0-0.5); % Lymphocytes 6.8 % (20.5-51.1); % Monocytes 8.3 % (1.7-9.3); % Neutrophils 82.4 % (42.2-75.2); Absolute Basophils 0.1 10^3/uL (0-0.2); Absolute Eosinophils 0.2 10^3/uL (0-0.7); Absolute Immature Granulocytes 0.1 10^3/uL (0-0.05); Absolute Lymphocytes 0.9 10^3/uL (1.2-3.4); Absolute Neutrophils 10.3 10^3/uL (1.4-6.5); Hematocrit 34.8 % (39.0-52.0); Hemoglobin 11.5 g/dL (13.0-18.0); Mean Corpuscular Hgb 28.1 pg (27.0-31.0); Mean Corpuscular Volume 85.1 fL (80.0-94.0); Mean Platelet Volume 8.4 fL (7.4-10.4); Nucleated Red Blood Cells % 0 % (-); Platelet Count 386 10^3/uL (130-400); Red Blood Cell Count 4.09 10^6/uL (4.70-6.10); Red Cell Dist. Width 13.6 % (11.5-14.5); White Blood Cell Count 12.5 10^3/uL (4.8-10.8)
--- NOTE | 2023-07-29 21:24 | ED.GENMED ---
History of Present Illness
General
Chief Complaint: Weakness
Source: patient
Exam Limitations: none
Time Seen by Provider: 07/29/23 20:46
Travel History
Have you had any contact with someone who has COVID-19?: No
Do you have any symptoms of coronavirus? Fever > 100 degrees, chills, cough, shortness of breath, sore throat, loss of taste or smell, muscle aches, or headache?: Yes
Symptoms:: chills
History of Present Illness
History of Present Illness:
This is a 52 year old male that is brought in from the care home with c/o open wound on the 'tail bone'. States that last night he started with chills and today it was worse. States that the opening on his sacral area started a week ago. States that he
also bruised his neck and know he has pain bilateral. States that he has had a fever with the chills. Denies any chest pain, SOB, abd pain, nausea, vomiting, diarrhea, headache, dizziness. Patient straight cath's self.
Past History
Past History
ED Past Medical History: Hypercholesterolemia, Psychiatric (Depression) and Other (Quadriplegic, Muscle spasm, Straight cath's 4 times daily, Sacral decub )
ED Past Surgical History: Orthopedic (Spinal fusion, Dejuan shoulder reconstruction. ), Urological (Prior renal stent) and Other (Skin graft buttocks, Right Leg fasciotomy)
Social History
Tobacco: Non-smoker
Alcohol: None
Personal: Single
Living: care home
Review of Systems
Review of Systems
All Other Systems: ROS reviewed and negative except as documented in HPI and ROS
Constitutional: Reports fever and chills
EENT: Reports no symptoms
Respiratory: Reports no symptoms; Denies cough or trouble breathing
Cardiac: Reports no symptoms; Denies chest pain
ABD/GI: Reports no symptoms; Denies abdominal pain, nausea, vomiting or diarrhea
: Reports no symptoms
Musculoskeletal: Reports neck pain (Muscle spasm)
Phy Exam
General Physical Exam
General Presentation: mild distress
General age: appears stated age
General Skin: warm and dry
General Habitus: debilitated
General Mental: alert
General Hydration: appears well hydrated
ENT Exam
ENT Exam: TM's normal, pharynx normal and neck supple
Eye Exam
Eye Exam: EOMI
Cardiovascular Exam
Cardiovascular Exam: regular rate/rhythm, no edema and normal peripheral pulses
Pulmonary Exam
Pulmonary Exam: lungs clear, no respiratory distress, no rales, chest non tender, no crackles, no rhonchi, no wheezing and no cough
Gastrointestinal Exam
Gastrointestinal Exam: normal bowel sounds, non tender, soft, no organomegaly, no pulsatile mass and non distended
Musculoskeletal Exam
Musculoskeletal Exam: no edema and other (Muscle spasm of the neck noted )
Skin Exam
Skin Exam: normal color, warm/dry, no petechia and redness ( Redness Of the sacral area with open wound, fowl smelling drainage noted. Eschar noted in the center of the wound. )
Psychiatric Exam
Psychiatric Exam: normal mood/affect
Course
Orders/Labs/Results
Orders:
Orders
07/29/23 21:00
Complete Blood Count/With Diff Urgent
Comprehensive Metabolic Panel Urgent
Lactic Acid Urgent
Blood Culture Urgent
HAMLET Source: Blood/Venous
Specimen Description:
Blood Culture Urgent
HAMLET Source: Blood/Venous
Specimen Description:
07/29/23 21:19
Wound Culture [Wound/Abscess/Other Culture] Urgent
HAMLET Source: Decubitis Ulcer
Specimen Description:
Date Specimen was Collected: 07/29/23
Time Specimen was Collected: 21:16
07/29/23 21:29
Ketorolac [Toradol] 30 mg IV NOW STA
07/29/23 22:19
Urinalysis Reflex To Culture Urgent
Date Specimen was Collected: 07/29/23
Time Specimen was Collected: 22:00
Urine Microscopic Reflex Cult Urgent
Urine Culture Urgent
HAMLET Source: U
Specimen Description:
Date Specimen was Collected: 07/29/23
Time Specimen was Collected: 22:00
Piperacillin/Tazo 3.375 Gram [Zosyn] 3.375 gram in 50 ml IV NOW
07/29/23 22:20
Consult Notification Routine
Specialty to Notify: Surgical
SURGICAL CONSULT Routine
Consulting Provider: Santos Goins
Was physician already notified: No
Reason for consult: sacral wound
VANCOMYCIN Pharmacy to Dose [VANCOCIN Pharmacy to Dose] 1 each Pharmacy To Prepare [Call Pharmacy To Prepare] 0 ml IV PER PROTOCOL
07/29/23 22:21
Admit/Transfer Patient As Directed
Co-Sign Provider:
Level of Care: Inpatient admission
Assign to:: Telemetry
Physician / Group: teresa
Diagnosis: sepsis
Reason for Telemetry: Arrhythmia
Date to Stop Telemetry: 08/01/23
Time to Stop Telemetry: 11:00
Reason for Hospitalization: sepsis
Expected length of stay greater than two midnights?: Yes
ELOS- Estimated Length of Stay in days: 3
I certify the patient meets the requirements for IP care: Yes
Consult Notification Routine
Specialty to Notify: Infectious Disease
INFECTIOUS DISEASE CONSULT Routine
Consulting Provider: Dayron Sanders
Was physician already notified: No
Reason for consult: sacral wound
07/29/23 22:22
Code Status As Directed
Resuscitation Status: Full Code
07/29/23 22:47
Vancomycin [Vancocin] 1,500 mg 0.9% Sodium Chloride [Nss] 20 ml 0.9% Sodium Chloride 250 ml [Nss] 250 ml IV NOW
08/01/23 11:00
DC Protocol for Telemetry ONCE
Abnormal Lab Results
07/29/23 07/29/23
21:00 22:19
WBC 12.5 H 10^3/uL
(4.8-10.8)
RBC 4.09 L 10^6/uL
(4.70-6.10)
Hgb 11.5 L g/dL
(13.0-18.0)
Hct 34.8 L %
(39.0-52.0)
Abs Immat Gran (auto) 0.1 H 10^3/uL
(0-0.05)
Absolute Neuts (auto) 10.3 H 10^3/uL
(1.4-6.5)
Absolute Lymphs (auto) 0.9 L 10^3/uL
(1.2-3.4)
Absolute Monos (auto) 1.0 H 10^3/uL
(0.1-0.6)
Immature Gran % 0.6 H %
(0-0.5)
Neutrophils % 82.4 H %
(42.2-75.2)
Lymphocytes % 6.8 L %
(20.5-51.1)
Sodium 134 L mmol/L
(135-145)
Creatinine 0.6 L mg/dL
(0.7-1.3)
Glucose 136 H mg/dl
(70-99)
Leukocyte Esterase Rfl 2+ A
(Negative)
Urine WBC (Reflex) 30-40 A /HPF
(0-5)
Urine Bacteria (Reflex) Few A
(Negative)
07/29/23 21:00
07/29/23 21:00
Leukocytosis, H/H slightly low. glucose nonfasting. Lactic acid normal at 1.3, Urine positive for infection.
Vital Signs
Initial and Last Documented VS:
Initial Vital Signs
BP
135/63
07/29/23 20:37
Last Documented Vital Signs
Temp Pulse Resp BP Pulse Ox
100.7 F H 119 16 135/63 100
07/29/23 20:48 07/29/23 20:41 07/29/23 20:41 07/29/23 20:37 07/29/23 20:41
MDM/Problems Addressed
Differential Diagnosis Includes:
Sacral wound infection.
MDM/Problems Addressed:
This is a 52 year old male that is brought in from the care home with c/o sacral wound. States that he now has fever with chills. States that they aren't able to care for him properly at the [facility].
Will get labs, and start IV antibiotics. Will admit.
Chronic conditions affecting care:
Quadraplegic
Acute Exacerbation and/or Progression of Chronic Illness:
Quadraplegic
Acute Exacerbation and/or Progression of Chronic Illness: Other (History of sacral decub wth skin grafting. )
*Pulse Oximetry
Patient hypoxic: no
*EKG
Interpreted by ED Provider?: NA
Rate: EKG- N/A
*Mixed Crop Farmer Interpretation
Rate: Mixed Crop Farmer- N/A
*Critical Care Note
Total Time (30-74mins, 75-104mins- exclusive of procedures): Not Applicable
ED Attending Note
-
Portions of this chart may have been created with voice recognition software.� Occasional wrong word or��sound alike� substitutions may have occurred due to the inherent limitations of voice recognition software.
Discharge Plan
Departure
Patient Disposition: Admit
Date of Disposition: 07/29/23
Time of Disposition: 23:41
Admit to: Med/Surg
Presentation/result/management discussed w/ accepting MD/DO: Hospitalist
Patient with high blood pressure during this ER visit?: Yes
Condition: Good
Covid-19: Not Applicable
Discharge Problem:
Fever, Cellulitis of sacral region, Sacral decubitus ulcer, Acute UTI
Interventions
Interventions:
*Risk Screen - Suicide Last Done: 07/29/23 20:37
*General Assessment Last Done: 07/29/23 20:37
*Neglect/Abuse Screening Last Done: 07/29/23 20:37
ED- Fall Risk Assessment Last Done: 07/29/23 20:40
*ED COVID-19 Vaccine History Last Done: 07/29/23 20:37
ED- Cardiac Assessment Last Done: 07/29/23 20:40
ED- Neurological Assessment Last Done: 07/29/23 20:40
ED- Pulmonary Assessment Last Done: 07/29/23 20:40
[2023-07-29 21:26] LABS: Lactic Acid 1.3 mmol/L (0.7-2.0)
[2023-07-29 21:27] LABS: ALT (SGPT) 25 U/L (0-50); AST (SGOT) 23 U/L (17-59); Albumin 3.5 g/dl (3.5-5.0); Alkaline Phosphatase 79 U/L (38-126); Blood Urea Nitrogen 17 mg/dl (9-20); Calcium 9.4 mg/dl (8.4-10.2); Carbon Dioxide 23 mmol/L (22-30); Chloride 101 mmol/L (98-107); Glucose 136 mg/dl (70-99); Potassium 4.2 mmol/L (3.5-5.1); Sodium 134 mmol/L (135-145); Total Bilirubin 0.4 mg/dl (0.2-1.3); Total Protein 6.6 g/dl (6.3-8.2); eGFR > 60.00
[2023-07-29] MEDS: TORADOL 30 MG IV (21:41)
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
[2023-07-29 22:25] LABS: Urine Albumin Negative (Neg - Trace); Urine Bilirubin Negative (Negative); Urine Character Clear (Clear); Urine Color Yellow; Urine Glucose Negative (Negative); Urine Ketone Negative (Negative); Urine Leukocyte 2+ (Negative); Urine Nitrite Negative (Negative); Urine Occult Blood Negative (Negative); Urine Specific Gravity 1.015 (<1.030); Urine Urobilinogen Negative (Neg - 1+)
--- NOTE | 2023-07-29 22:30 | W.PN.UPDATE ---
Update Note
Progress Note Update
I saw and examined the patient.
The IRONING PLEATER Gustavo's note was reviewed and I agree with the note.
Comment: 52 y/o M, housed at [facility], hx of quadriplegia, neurogenic bladder (self caths), returns to for fever/chills. Patient was admitted in last 2 weeks with sacral wound cellulitis and strep bacteremia and completed Zyvox. At that time, no
surgical intervention was recommended. He reports last night he developed fever and chills, along with a foul smelling odor. No other complaints. He is convinced he will need debridement.
Physical Exam
General: Well Developed, Well Nourished and No Apparent Distress
HEENT: Normocephalic, Moist mucous membranes and Atraumatic
Respiratory: Clear
Cardiac: S1/S2 and Regular Rhythm; No Murmur or Rub
GI: Soft, Non Tender, Non Distended and Normal Bowel Sounds; No Organomegaly
Rectal: Deferred by Provider
Musculoskeletal: No Clubbing, No Cyanosis and No Edema
Skin: Rash and Decubitus Ulcers (sacral ulcer, foul smelling, pus)
Neuro: AO x 3 and Nonfocal/grossly intact
Assessment/Plan: Patient in sepsis. Source is sacral wound. Will start IVF, IV broad spectrum Abx. ID/GS/Wound care consults. Pain control. Rest of plan as per LAUREN Chen's Note.
[2023-07-29 22:39] VITALS: BMI 23.0
[2023-07-29 22:39] LABS: Urine Squamous Cell 16-20 /LPF (Few)
[2023-07-29 22:41] LABS: Urine Bacteria Few (Negative); Urine Mucus Few; Urine Red Blood Cell 0-2 /HPF (0-2); Urine White Cell 30-40 /HPF (0-5)
[2023-07-29] MEDS: ZOSYN 50 IV (22:48)
[2023-07-30] VITALS (9 sets, daily range): BP systolic 97–117; BP diastolic 57–69; BMI 22.0
[2023-07-30] MEDS: VANCOCIN IV ×2 (00:13)
[2023-07-30] MEDS: NSS 1000 IV (00:25)
[2023-07-30] MEDS: VANCOCIN 300 ML IV (00:26)
[2023-07-30] MEDS: VANCOCIN 300 MG IV (00:26)
--- NOTE | 2023-07-30 01:00 | PTCARENOTE ---
Pt transferred from ED. Pt AAOX3, presenting with sacral wound, able to make needs known. [facility] guards at bedside. Pt oriented to unit, call parish within reach. Will continue with current plan.
[2023-07-30] MEDS: TYLENOL 650 MG PO ×2 (03:48→14:16)
[2023-07-30] MEDS: TORADOL 30 MG IV (04:10)
[2023-07-30] MEDS: ZOSYN 50 IV ×4 (05:33→23:59)
[2023-07-30 07:42] LABS: Hematocrit 32.5 % (39.0-52.0); Hemoglobin 10.8 g/dL (13.0-18.0); Mean Corp Hgb Conc. 33.2 g/dL (33.0-37.0); Mean Corpuscular Hgb 28.6 pg (27.0-31.0); Mean Platelet Volume 8.4 fL (7.4-10.4); Platelet Count 302 10^3/uL (130-400); Red Blood Cell Count 3.78 10^6/uL (4.70-6.10); Red Cell Dist. Width 13.7 % (11.5-14.5); White Blood Cell Count 9.6 10^3/uL (4.8-10.8)
[2023-07-30] MEDS: SENOKOT 8.59999999999999964 MG PO (08:06)
[2023-07-30] MEDS: NON-FORMULARY ITEM 1 EA TOPICAL (08:06)
[2023-07-30] MEDS: LIORESAL 60 MG PO (08:06)
[2023-07-30] MEDS: DITROPAN 5 MG PO ×2 (08:06→20:14)
[2023-07-30 08:12] LABS: Blood Urea Nitrogen 16 mg/dl (9-20); Calcium 8.5 mg/dl (8.4-10.2); Carbon Dioxide 26 mmol/L (22-30); Chloride 105 mmol/L (98-107); Estimated Creatinine Clearance 107 ml/min; Glucose 102 mg/dl (70-99); Potassium 4.1 mmol/L (3.5-5.1); Sodium 136 mmol/L (135-145); eGFR > 60.00
--- NOTE | 2023-07-30 08:25 | PHA.VAN.IN ---
Assessment
- Assessment
Renal Function: Appears similar to baseline
Concomitant Antimicrobials: piperacillin/tazobactam
- Previous Dosing Experience
Previous Regimen: Vanc 1250mg Q12H
Date of Regimen: June 2023
Provided Trough of: 14.6
Provided AUC of: 507
Patient's SCR is: Similar to previous dosing experience
Patient's weight is: Similar to previous dosing experience
Regimen provided the following additional patient-specific PK:
Extrapolated Cmax (mcg/mL): 29 [Peak level was drawn: Appropriately (drawn ~1.7H after end of previous infusion)]
Extrapolated Cmin (mcg/mL): 14.7 [Trough Drawn: Appropriately]
Levels were drawn: At steady state (levels drawn after 4th maintenance dose)
Calculated ke: 0.0646
Calculated half life (H): 10.7
Calculated Vd (L): 76 (~1 L/kg)
Calculated Vanc CL (ml/min): 82
Vanc 1000mg Q12H predicted to provide AUC 419, peak 24.3, trough 11.9 using above patient-specific PK
AUC Dosing Plan
- Empiric Dosing
Initial / Loading Dose: 1500mg - 07/29 00:26
Maintenance Regimen: Vanc 1000mg Q12H starting at 1800 based on prior experience
- Monitoring
No levels ordered at this time: consider levels in next few days
Pharmacokinetics Vancomycin I
- -
Patient Age: 52
Patient Sex: Male
Vancomycin Day #: 1
Indication: Skin And Soft Tissue
Requesting Provider: Bri Chen
Pertinent Antimicrobial Allergies:
NKDA
Height / Weight:
Height 5 ft 10 in
Actual Weight 69.513 kg
- Vital Signs / Lab Results
Temp Pulse Resp BP Pulse Ox
98.2 F 103 21 98/62 97
07/30/23 07:55 07/30/23 07:55 07/30/23 07:55 07/30/23 07:55 07/30/23 07:55
Lab Results - Hematology
07/29/23 07/30/23
21:00 07:28
WBC 12.5 H 9.6
Lab Results - Chemistry
07/29/23 07/30/23
21:00 07:28
BUN 17 16
Creatinine 0.6 L 0.8
Estimated Creat Clear 107
Albumin 3.5
07/29/23
21:00
Lactic Acid 1.3
Lab Results - Urine
07/29/23
22:19
Urine Nitrite (Reflex) Negative
Leukocyte Esterase Rfl 2+ A
Urine WBC (Reflex) 30-40 A
Ur Squamous Epith Cells 16-20
Urine Bacteria (Reflex) Few A
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
[2023-07-30] MEDS: DAKIN'S SOLUTION 0.125% 1/4 STRENGTH 473 ML TOPICAL (10:06)
--- NOTE | 2023-07-30 13:04 | CM ---
Chart reviewed
Patient from [facility]
Report: [facility] # [phone]
Fax#: [phone]
Patient is a Quadriplegic
Acute UTI
Large Sacral Decubitus w/active drainage
Sepsis (cultures pending); neurogenic bowel/bladder
General Surgery and ID consults
Plan: return to [facility] when medically stable
--- NOTE | 2023-07-30 15:12 | CON.ID ---
Consultation
-
Date/Time Consultation Requested: 07/29/2023 2221
Date/Time Consultation Performed: 07/30/2023 1500
Requesting Provider: Fabiana Chen
Performing Provider: Dr. Sanders
Reason for Consultation: Leukocytosis; sacral wound
Chief Complaint / Past History
Chief Complaint
Decubitus wound breakdown.
History of Present Illness
52-year-old male, currently incarcerated, with history of T8 injury, quadriplegia, neurogenic bladder requiring straight catheterizes 4 times a day, history of skin graft to the left buttock presents to [facility] yesterday due to breakdown
of sacral decubitus.
The patient recently was admitted to [facility] from 07/12 through 07/19, during which time he was treated for MRSA and strep pyogenes recovered from the sacral wound. At discharge, he was transition into oral Zyvox.
He reports that over the past several days there has been increasing drainage from the sacral wound, worsening malodor, and that he developed fevers, and asked to return to the hospital for further evaluation. Workup in the ER revealed
leukocytosis, along with fever.
Past History
Additional Past Medical History:
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
Neurogenic bladder requiring straight caths QID
Dyslipidemia
Left buttock wound with hx skin graft
Chronic constipation
Spinal fusion
Shoulder reconstruction
Allergy History:
No Known Allergies Allergy (Verified 07/29/23 22:25)
Medications Reviewed: Yes
Current Antibiotics:
Vancomycin
Zosyn
Social History
Tobacco: Non-Smoker
Alcohol: None
Drug: None
Personal: Single
Living: Custodial
Employment: Not Employed
Family History
Family History: Not Pertinent
Review of Systems
Vital Signs
Temp Pulse Resp BP Pulse Ox
98.2 F 85 18 109/57 100
07/30/23 11:16 07/30/23 11:16 07/30/23 11:16 07/30/23 11:16 07/30/23 11:16
Physical Exam
Physical Exam
Constitutional: No Acute Distress, Comfortable, Chronically Ill and Non-toxic
Head: Normocephalic
Eyes: Pupils Equal, Pupils Round, No Conjunctival Hemorrhage and Sclera Anicteric
Oral: No Thrush and No Ulcers
Cardiovascular: Regular Rate and S1/S2; Negative S3/S4
Pulmonary: Clear; Negative Wheezes, Rales or Rhonchi
Gastrointestinal: Soft, Non Tender, Non Distended and Normal Bowel Sounds
Genito-Urinary: Negative Tavera
Extremities: Negative Edema, Cyanosis or Erythema
Wound: Other (Sacral wound visualized. Areas of focal necrosis noted. Positive significant malodor. Several areas noted to produce purulent drainage with palpation.)
Neurological: Awake and Alert
Psychological: Calm
Lab / Diagnostic Study Results
07/30/23 07:28
07/30/23 07:28
Abs Immat Gran (auto) 0.1 10^3/uL (0-0.05) H 07/29/23 21:00
Absolute Neuts (auto) 10.3 10^3/uL (1.4-6.5) H 07/29/23 21:00
Absolute Lymphs (auto) 0.9 10^3/uL (1.2-3.4) L 07/29/23 21:00
Absolute Monos (auto) 1.0 10^3/uL (0.1-0.6) H 07/29/23 21:00
Absolute Basos (auto) 0.1 10^3/uL (0-0.2) 07/29/23 21:00
Immature Gran % 0.6 % (0-0.5) H 07/29/23 21:00
Neutrophils % 82.4 % (42.2-75.2) H 07/29/23 21:00
Lymphocytes % 6.8 % (20.5-51.1) L 07/29/23 21:00
Monocytes % 8.3 % (1.7-9.3) 07/29/23 21:00
Eosinophils % 1.3 % (0-6) 07/29/23 21:00
Basophils % 0.6 % (0-2) 07/29/23 21:00
Lactic Acid 1.3 mmol/L (0.7-2.0) 07/29/23 21:00
Ur Squamous Epith Cells 16-20 /LPF (Few) 07/29/23 22:19
Microbiology Results
Micro:
07/30/23 00:20 MRSA Screen - Pending
Nose
07/29/23 22:19 Urine Culture - Pending
Urine
07/29/23 21:19 Wound Culture - Pending
Decubitis Ulcer Gram Stain - Pending
07/29/23 21:00 Blood Culture - Pending
Blood/Venous
07/29/23 21:00 Blood Culture - Pending
Blood/Venous
Assessment / Plan
Infected sacral decubiti
Leukocytosis
Pyuria/bacteriuria; Hx chronic straight cath secondary to neurogenic bladder
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
Dyslipidemia
Recommendations:
Continue with empiric Zosyn and vancomycin for the present.
Await further input from General Surgery. Given appearance and areas of drainage, may need further debridement.
Follow pending cultures to guide antimicrobial selection and de-escalation.
Offload area as possible
--- NOTE | 2023-07-30 15:50 | CON.GS ---
Consultation
-
Reason for Consultation: Sacral decubitus ulcer
Medical History
-
Chief Complaint: Fever and sacral decubitus wound
History of Present Illness:
The patient is a 52-year-old male recently known to our surgical service after evaluation on 07/14/2023 for a sacral decubitus pressure ulcer. He has a history of T8 spinal cord injury in 1996 with quadriplegia status post spinal fusion, neurogenic
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 He is incarcerated at [facility] and unfortunately has had significant progression in his decubitus wounds as his baseline care has
been substantially affected his ability to care for the area, offload pressure and ensure high-protein nutritious diet.
He was discharged back to the correctional facility on 07/20/2023 but returns again overnight with fevers and worsening ulcer. He does not have pain in the area as he is insensate.
Past Medical History
Past Medical History: Other (Hypercholesterolemia, T8 spinal cord injury with quadriplegia, neurogenic bladder, chronic constipation, history of decubitus ulcers)
Past Surgical History: Other (Spinal fusion, bilateral shoulders, left buttock skin graft, debridement of decubitus ulcers)
Social History
Tobacco: Non-Smoker
Living: Half-Way
Family History
Family History: Reviewed & Noncontributory
Allergies / Home Medications
Allergy/AdvReac Type Severity Reaction Status Date / Time
No Known Allergies Allergy Verified 07/29/23 22:25
�Medication �Instructions �Recorded �Confirmed �Type
baclofen 20 mg tablet 60 mg PO DAILY Muscle Spasms 07/13/23 07/29/23 History
cetyl and stearate 1 applic topical DAILYPRN PRN 07/13/23 07/29/23 History
alcohol-propylen glycol-sls dryness
topical cream (Cetaphil topical
cream)
lubricants topical gel (K-Y 1 ea topical DAILY self cath 07/13/23 07/29/23 History
Lubricating topical jelly)
meloxicam 15 mg tablet 15 mg PO DAILYPRN PRN mild pain 07/13/23 07/29/23 History
oxybutynin chloride 5 mg tablet 5 mg PO BID Urinary Issue 07/13/23 07/29/23 History
rosuvastatin 10 mg tablet 10 mg PO HS High Cholesterol 07/13/23 07/29/23 History
ascorbic acid (vitamin C) 500 mg 500 mg PO DAILY 30 days #30 tabs 07/20/23 07/29/23 Rx
tablet (Vitamin C)
multivitamin with folic acid 400 1 tab PO DAILY 30 days #30 tabs 07/20/23 07/29/23 Rx
mcg tablet (Tab-A-Alida)
acetaminophen 325 mg tablet 650 mg PO BIDPRN PRN mild 07/29/23 07/29/23 History
pain/fever
bisacodyl 5 mg tablet 10 mg PO DAILYPRN PRN constipation 07/29/23 07/29/23 History
chlorpheniramine 4 1 tab PO BIDPRN PRN allergies 07/29/23 07/29/23 History
mg-phenylephrine 10 mg tablet
collagenase clostridium histo. 250 1 applic topical HS 07/29/23 07/29/23 History
unit/gram topical ointment (Santyl)
docusate sodium 100 mg capsule 100 mg PO BIDPRN PRN constipation 07/29/23 07/29/23 History
polyethylene glycol 3350 17 gram 17 g PO DAILYPRN PRN constipation 07/29/23 07/29/23 History
oral powder packet (Miralax)
sennosides 8.6 mg tablet (senna) 8.6 mg PO DAILY 07/29/23 07/29/23 History
sodium phosphates 19 gram-7 118 ml UT DAILYPRN PRN constipation 07/29/23 07/29/23 History
gram/118 mL enema (Fleet Enema)
Review of Systems
-
History Source: Patient
All other systems: Negative unless noted
A 10 point review of systems was completed, and was negative except as per HPI.
Physical Exam
Vital Signs
Temp Pulse Resp BP Pulse Ox
98.2 F 85 18 109/57 100
07/30/23 11:16 07/30/23 11:16 07/30/23 11:16 07/30/23 11:16 07/30/23 11:16
07/29/23 07/30/23 07/31/23
06:59 06:59 06:59
Actual Weight 69.513 kg
Body Mass Index (BMI) 22.0
Lab Results
07/30/23 07:28
07/30/23 07:28
WBC 9.6 10^3/uL (4.8-10.8) 07/30/23 07:28
Hgb 10.8 g/dL (13.0-18.0) L 07/30/23 07:28
Hct 32.5 % (39.0-52.0) L 07/30/23 07:28
Plt Count 302 10^3/uL (130-400) D 07/30/23 07:28
Abs Immat Gran (auto) 0.1 10^3/uL (0-0.05) H 07/29/23 21:00
Neutrophils % 82.4 % (42.2-75.2) H 07/29/23 21:00
Physical Exam
General: Well Developed, Well Nourished, No Apparent Distress, Comfortable and Other (Quadriplegia, bedbound with lower extremity contractures)
HEENT: Normocephalic, Anicteric and Moist Mucous Membranes
Respiratory: Non Labored Respirations
Cardiac: Regular Rhythm
Skin: Other (Large unstageable sacral decubitus ulcer with what appears to be full-thickness necrosis and malodor)
Neuro: AO x 3
Psych: Calm
Data Reviewed
-
Labs: Other (Reports a count 12.5 on admission currently 9.6. Initial blood, urine and wound cultures pending.)
Assessment / Plan
-
Assessment: 52-year-old male with quadriplegia with worsening unstageable large sacral decubitus ulcer. Foul-smelling with clear necrosis of surrounding dermis likely into the deep subcutaneous tissues.
Plan: Advised patient of need for surgical excisional debridement. Given current size of the wound this would be done in the operating room setting to allow for adequacy of excision and hemostasis if the patient is insensate in the area.
He has been on a regular diet and had lunch shortly ago therefore the procedure will be scheduled for tomorrow 07/31/2023 as is stable without any signs of continued sepsis at the moment.
Patient agreeable to plan. Any of his questions were addressed.
Advised patient that I am unable to update his family members as per [facility] regulations.
[2023-07-30] MEDS: LOVENOX 40 MG SC (17:23)
[2023-07-30] MEDS: VANCOCIN 200 IV (17:23)
--- NOTE | 2023-07-30 18:09 | PTCARENOTE ---
patient self caths.
[2023-07-30] MEDS: DAKIN'S SOLUTION 0.125% 1/4 STRENGTH 1 ML TOPICAL (20:14)
[2023-07-30] MEDS: DESENEX/MITRAZOL/ZEASORB 1 APPLIC TOPICAL (20:14)
[2023-07-30] MEDS: CRESTOR 10 MG PO (21:12)
[2023-07-30] MEDS: TORADOL 15 MG IV (22:04)
[2023-07-31] VITALS (11 sets, daily range): BP systolic 87–126; BP diastolic 58–82
[2023-07-31] MEDS: ZOSYN 50 IV ×2 (05:20→17:16)
[2023-07-31] MEDS: VANCOCIN 200 IV ×2 (05:55→17:16)
[2023-07-31] MEDS: DESENEX/MITRAZOL/ZEASORB 1 APPLIC TOPICAL ×2 (08:13→21:30)
[2023-07-31] MEDS: DITROPAN 5 MG PO ×2 (08:13→20:40)
[2023-07-31] MEDS: LIORESAL 60 MG PO (08:13)
[2023-07-31] MEDS: DAKIN'S SOLUTION 0.125% 1/4 STRENGTH 473 ML TOPICAL (08:15)
[2023-07-31] MEDS: NON-FORMULARY ITEM 1 EA TOPICAL (08:15)
[2023-07-31] MEDS: SENOKOT PO (08:19)
[2023-07-31 08:24] LABS: Hematocrit 33.7 % (39.0-52.0); Hemoglobin 10.9 g/dL (13.0-18.0); Mean Corp Hgb Conc. 32.3 g/dL (33.0-37.0); Mean Corpuscular Hgb 28.2 pg (27.0-31.0); Mean Corpuscular Volume 87.3 fL (80.0-94.0); Mean Platelet Volume 8.5 fL (7.4-10.4); Platelet Count 325 10^3/uL (130-400); Red Blood Cell Count 3.86 10^6/uL (4.70-6.10); Red Cell Dist. Width 13.8 % (11.5-14.5); White Blood Cell Count 8.4 10^3/uL (4.8-10.8)
[2023-07-31 08:51] LABS: Blood Urea Nitrogen 12 mg/dl (9-20); Calcium 8.9 mg/dl (8.4-10.2); Carbon Dioxide 29 mmol/L (22-30); Chloride 106 mmol/L (98-107); Estimated Creatinine Clearance 123 ml/min; Glucose 99 mg/dl (70-99); Potassium 4.3 mmol/L (3.5-5.1); Sodium 141 mmol/L (135-145); eGFR > 60.00
--- NOTE | 2023-07-31 10:08 | W.PN.GS2 ---
Today's Communication / Plan
-
-- Plan for incision and debridement of a sacral decubitus ulcer
-- NPO
-- Abx: Vancomycin and Zosyn
Assessment / Plan
-
Patient is a 52 yo M p/w sacral decubitus ulcer
Evidence of necrosis and infection. Needs surgical debridement.
Plan for incision and debridement of a sacral decubitus ulcer. The procedure itself, as well as the risks, benefits, and alternatives was discussed. Specifically, we discussed the risks of bleeding, persistent infection, injury to surrounding
structures, need for further drainage procedures, and prolonged wound healing. All questions answered.
-- Plan for incision and debridement of a sacral decubitus ulcer
-- NPO
-- Abx: Vancomycin and Zosyn
Subjective Data
-
Date of Service: July 31, 2023
Coccygeal pain and drainage. Afebrile.
Objective Data
-
Intake and Output
07/30/23 07/31/23 08/01/23
06:59 06:59 06:59
Intake Total 1010 / 1010 1200 / 1200
Output Total 100 / 100 2054
Balance 910 / 910 -855 / -855
Intake:
Oral fluids 480 / 480 1200 / 1200
IV fluids (Total) 480 / 480
IV piggybacks 50 / 50
Output:
Urine, Voided 1375 / 1375
Straight cath output 100 / 100 680 / 680
Other:
How many times incontinent 2
SATURATED amount urine
Vital Signs
Temp Pulse Resp BP Pulse Ox
98.3 F 89 18 126/82 95
07/31/23 07:30 07/31/23 07:30 07/31/23 07:30 07/31/23 07:30 07/31/23 07:30
Lab Results
07/31/23 08:07
07/31/23 08:07
Calcium 8.9 mg/dl (8.4-10.2) 07/31/23 08:07
Total Bilirubin 0.4 mg/dl (0.2-1.3) 07/29/23 21:00
AST 23 U/L (17-59) 07/29/23 21:00
ALT 25 U/L (0-50) 07/29/23 21:00
Alkaline Phosphatase 79 U/L (38-126) 07/29/23 21:00
Total Protein 6.6 g/dl (6.3-8.2) 07/29/23 21:00
Albumin 3.5 g/dl (3.5-5.0) 07/29/23 21:00
Physical Exam
-
Gen: NAD
Rectal: Large unstageable sacral decubitus ulcer with what appears to be full-thickness necrosis and malodor
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
--- NOTE | 2023-07-31 10:12 | W.SUR.PREOP ---
Pre-Operative Surgical Note
-
I have examined this patient prior to the performance of the scheduled procedure.
The patient's condition is unchanged from the time of the current History and
Physical and the patient is able to undergo the scheduled procedure.
--- NOTE | 2023-07-31 10:36 | PHA.VAN.FU ---
Vancomycin Assessment / Plan
- Assessment
Renal Function: Stable
WBC's are: WNL
In the past 24 hrs, patient has been: Afebrile
Concomitant Antimicrobials: piperacillin/tazobactam
- Dosing Plan
Continue: Vanc 1000mg Q12H
- Monitoring Plan
No level(s) ordered at this time: will hold off on levels for now
Patient recently received vancomycin with therapeutic levels - will hold off on levels for now to give additional time in case of additional accumulation / to ensure patient is at steady state
- Follow Up
Pharmacy will continue to follow.
Vancomycin Follow UP
- -
Patient Age: 52
Patient Sex: Male
Vancomycin Day #: 2
Indication: Skin And Soft Tissue
Requesting Provider: Bri Chen
Pertinent Antimicrobial Allergies:
NKDA
Height / Weight:
Height 5 ft 10 in
Actual Weight 69.513 kg
- Vital Signs / Lab Results
Temp Pulse Resp BP Pulse Ox
98.3 F 89 18 126/82 95
07/31/23 07:30 07/31/23 07:30 07/31/23 07:30 07/31/23 07:30 07/31/23 07:30
Lab Results - Hematology
07/29/23 07/30/23 07/31/23
21:00 07:28 08:07
WBC 12.5 H 9.6 8.4
Lab Results - Chemistry
07/29/23 07/30/23 07/31/23
21:00 07:28 08:07
BUN 17 16 12
Creatinine 0.6 L 0.8 0.7
Estimated Creat Clear 107 123
Albumin 3.5
07/29/23
21:00
Lactic Acid 1.3
Microbiology Results
07/29/23 21:19 Wound Culture - Preliminary
Decubitis Ulcer Gram Stain - Preliminary
07/30/23 00:20 MRSA Screen - Final
Nose Staph aureus MRSA
07/29/23 21:00 Blood Culture - Preliminary
Blood/Venous No Growth in 24 hours- Final report to follow
07/29/23 21:00 Blood Culture - Preliminary
Blood/Venous No Growth in 24 hours- Final report to follow
--- NOTE | 2023-07-31 12:16 | W.IMMPOSTOP ---
Addendum entered and electronically signed by Brent Wayne MD 07/31/23 12:23:
[facility]# [id number]
Original Note:
Surgical Immed Post Op Note
-
Primary Surgeon: Rosana
Assisting Surgeon: None
Pre-op Diagnosis: Sacral decubitus ulcer
Post-op Diagnosis: Sacral decubitus ulcer
Procedure Performed: Incision and debridement of sacral ulcer in preparation for skin and soft tissue flap
Anesthesia Type: MAC
Specimen / Cultures:
1. Wound tissue culture
Estimated Blood Loss: 53 cc
Complications: None
Operative Findings:
1. Necrotic skin and soft tissue down to presacral fascia, purulence evacuated
2. Excisional debridement using cautery
3. Wound measurements 11 x 7 x 2 cm
4. Wound packed with Betadine soaked Kerlix, gauze, ABDs, and tape
[2023-07-31] MEDS: ZOSYN IV (12:41)
--- NOTE | 2023-07-31 14:32 | PN.CDI ---
CDI
- -
CDI:
Physician Documentation Request
Admit Date: 07/29/23 22:51
Dear Doctor Ngoc,
Please review the following and provide your response in the progress notes.
Due to conflicting documentation, please clarify the stage of the sacral decubitus wound...:
Clinical Indicators:
07/30/23 09:31 - Wound Note
#Wound Location and type/assessment:
#Patient admitted with: stage 4 sacral pressure injury
#...with brown black necrotic tissue starting to detach along eschar edges.
#...+surrounding erythema with edema proximal edge of wound.
PN, 07/30
#Large sacral decubital wound -unstageable.
Physician documentation of the type and location of wounds is required for compliant documentation. Based on the above clinical findings and your assessment, please provide the following in your progress note:
Yes, Stage 4 sacral pressure injury, POA
No, Stage 4 sacral pressure injury
Other (please specify)
1. Location of the ulcer/wound, including laterality.
2. Type (etiology) of ulcer/wound:
- Arterial (ischemic) ulcer
- Traumatic wound
- Pressure (decubitus) ulcer
3. If a pressure ulcer, please also include the stage* of the ulcer:
- Stage 1 - Skin intact, non-blanchable redness
- Stage 2 - Partial thickness loss of dermis, includes intact or open blister
- Stage 3 - Full thickness tissue not including bone, tendon or muscle
- Stage 4 - Full thickness tissue loss, including exposed bone, tendon or muscle
- Unstageable - Full thickness loss in which the base of the ulcer is covered by slough (yellow, munguia, lott, green or brown) and/or eschar (munguia, brown or black) in the wound bed.
Use of terms such as suspected, likely, concern for, or probable (associated with a specific diagnosis that is being evaluated, monitored, or treated as if it exists) are acceptable and can be coded in the inpatient setting, when documented at the
time of discharge.
Thank you,
Yudelka Hill RN BSN CCDS
CDI Specialist
please contact via tiger text
Please use your independent medical judgment in providing your response.
*Source: National Pressure Ulcer Advisory Panel (NPUAP)
--- NOTE | 2023-07-31 14:38 | PN.CDI ---
CDI
- -
CDI:
Physician Documentation Request
Admit Date: 07/29/23 22:51
Dear Doctor Ngoc,
Please review the following and provide your response in the progress notes.
Clinical Indicators:
07/30/23 09:31 - Wound Note
#Wound Location and type/assessment:
#R heel stage 1 pressure injury.
Physician documentation of the type and location of wounds is required for compliant documentation. Based on the above clinical findings and your assessment, please provide the following in your progress note:
Yes, right heel stage 1 Pressure Injury, POA
No, right heel stage 1 Pressure Injury
Other, (talia specify)
1. Location of the ulcer/wound, including laterality.
2. Type (etiology) of ulcer/wound:
- Arterial (ischemic) ulcer
- Traumatic wound
- Pressure (decubitus) ulcer
3. If a pressure ulcer, please also include the stage* of the ulcer:
- Stage 1 - Skin intact, non-blanchable redness
- Stage 2 - Partial thickness loss of dermis, includes intact or open blister
- Stage 3 - Full thickness tissue not including bone, tendon or muscle
- Stage 4 - Full thickness tissue loss, including exposed bone, tendon or muscle
Use of terms such as suspected, likely, concern for, or probable (associated with a specific diagnosis that is being evaluated, monitored, or treated as if it exists) are acceptable and can be coded in the inpatient setting, when documented at the
time of discharge.
Thank you,
Yudelka Hill RN BSN CCDS
CDI Specialist
please contact via tiger text
Please use your independent medical judgment in providing your response.
*Source: National Pressure Ulcer Advisory Panel (NPUAP)
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
--- NOTE | 2023-07-31 15:37 | CM ---
Patient s/p sacral debridement today.
Patient from [facility]
Report: [facility] # [phone]
Fax#: [phone].
[2023-07-31] MEDS: LOVENOX 40 MG SC (17:17)
[2023-07-31] MEDS: DAKIN'S SOLUTION 0.125% 1/4 STRENGTH TOPICAL (20:40)
[2023-07-31] MEDS: CRESTOR 10 MG PO (21:30)
[2023-08-01] VITALS (8 sets, daily range): BP systolic 105–131; BP diastolic 70–79
[2023-08-01] MEDS: ZOSYN 50 IV ×5 (00:09→23:33)
[2023-08-01 06:13] LABS: Hematocrit 34.8 % (39.0-52.0); Hemoglobin 11.5 g/dL (13.0-18.0); Mean Corpuscular Hgb 28.4 pg (27.0-31.0); Mean Corpuscular Volume 85.9 fL (80.0-94.0); Mean Platelet Volume 8.8 fL (7.4-10.4); Platelet Count 345 10^3/uL (130-400); Red Blood Cell Count 4.05 10^6/uL (4.70-6.10); Red Cell Dist. Width 13.7 % (11.5-14.5); White Blood Cell Count 7.6 10^3/uL (4.8-10.8)
[2023-08-01] MEDS: VANCOCIN 200 IV ×2 (06:17→17:56)
[2023-08-01 06:33] LABS: Blood Urea Nitrogen 15 mg/dl (9-20); Calcium 9.4 mg/dl (8.4-10.2); Carbon Dioxide 28 mmol/L (22-30); Chloride 105 mmol/L (98-107); Estimated Creatinine Clearance 123 ml/min; Glucose 104 mg/dl (70-99); Potassium 4.4 mmol/L (3.5-5.1); Sodium 140 mmol/L (135-145); eGFR > 60.00
[2023-08-01] MEDS: SENOKOT 8.59999999999999964 MG PO (07:58)
[2023-08-01] MEDS: DITROPAN 5 MG PO ×2 (07:58→19:59)
[2023-08-01] MEDS: LIORESAL 60 MG PO (07:58)
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
--- NOTE | 2023-08-01 09:00 | PHA.VAN.FU ---
Vancomycin Assessment / Plan
- Assessment
Renal Function: Stable
WBC's are: WNL
In the past 24 hrs, patient has been: Afebrile
Concomitant Antimicrobials: ZOSYN
- Dosing Plan
Continue: 1000MG Q12H
- Monitoring Plan
Peak Level: 07/31 @2030
Trough Level: 08/01 @0530
- Follow Up
Pharmacy will continue to follow.
Vancomycin Follow UP
- -
Patient Age: 52
Patient Sex: Male
Vancomycin Day #: 3
Indication: Skin And Soft Tissue
Requesting Provider: Bri Chen
Pertinent Antimicrobial Allergies:
NKDA
Height / Weight:
Height 5 ft 10 in
Actual Weight 69.513 kg
- Vital Signs / Lab Results
Temp Pulse Resp BP Pulse Ox
98.3 F 97 19 109/78 99
08/01/23 07:45 08/01/23 07:45 08/01/23 07:45 08/01/23 07:45 08/01/23 07:45
Lab Results - Hematology
07/29/23 07/30/23 07/31/23
21:00 07:28 08:07
WBC 12.5 H 9.6 8.4
08/01/23
05:21
WBC 7.6
Lab Results - Chemistry
07/29/23 07/30/23 07/31/23
21:00 07:28 08:07
BUN 17 16 12
Creatinine 0.6 L 0.8 0.7
Estimated Creat Clear 107 123
Albumin 3.5
08/01/23
05:21
BUN 15
Creatinine 0.7
Estimated Creat Clear 123
Albumin
07/29/23
21:00
Lactic Acid 1.3
Microbiology Results
07/29/23 21:00 Blood Culture - Preliminary
Blood/Venous No Growth in 48 hours- Final report to follow
07/29/23 21:00 Blood Culture - Preliminary
Blood/Venous No Growth in 48 hours- Final report to follow
07/31/23 12:10 Gram Stain - Preliminary
Other-Please specify - Other
07/29/23 22:19 Urine Culture - Final
Urine No Significant Growth
07/29/23 21:19 Wound Culture - Preliminary
Decubitis Ulcer Gram Stain - Preliminary
07/30/23 00:20 MRSA Screen - Final
Nose Staph aureus MRSA
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
[2023-08-01] MEDS: DAKIN'S SOLUTION 0.125% 1/4 STRENGTH 473 ML TOPICAL (09:52)
[2023-08-01] MEDS: NON-FORMULARY ITEM 1 EA TOPICAL (09:52)
[2023-08-01] MEDS: DESENEX/MITRAZOL/ZEASORB 1 APPLIC TOPICAL ×2 (09:52→19:57)
--- NOTE | 2023-08-01 10:36 | W.PN.GS2 ---
Addendum entered and electronically signed by Luan Gutiérrez MD 08/01/23 12:36:
I saw and examined the patient independently.
The Pin Drafting Machine Operator's note was reviewed and I agree with the note, assessment and plan except where noted below.
Comment: This is a 52-year-old quadriplegic male with a sacral decubitus ulcer, postoperative day 1 incision and debridement of a large sacral decubitus ulcer in the setting of a recent admission in late June for a small 0.5 cm wound.
Overall wound looks okay, however there is still some necrotic tissue particularly in the muscle. Unfortunately, the patient has eaten already today, will plan to take him to the OR tomorrow for additional debridement.
N.p.o. at midnight.
Continue changing wound packing with quarter strength Dakin's twice daily, surgical team will do a.m. dressing.
Okay for regular diet with supplements.
Continue antibiotics, appreciate ID support here.
Complex social situation as the patient is currently incarcerated (and will be for '55 days') and the wound has grown from 0.5 cm to now 11 x 7 cm.
Surgery will continue to follow.
Original Note:
Today's Communication / Plan
-
I+D planned for tomorrow AM
NPO at midnight
Add Ensure chocolate
Assessment / Plan
-
Patient is a 52 yo M p/w sacral decubitus ulcer
POD#1 Incision and debridement of sacral ulcer in preparation for skin and soft tissue flap
Mild necrosis of muscle b/l, dressing changed at bedside
-- Plan for incision and debridement of a sacral decubitus ulcer again tomorrow.
-- NPO at midnight.
-- Regular diet for now with chocolate ensure supplements BID.
-- Abx: Vancomycin and Zosyn. Seen in exam with ID.
Subjective Data
-
Date of Service: August 01, 2023
Patient states he has no complaints. He is tolerating a diet. He has no nausea or vomiting.
Objective Data
-
Intake and Output
07/31/23 08/01/23 [id number]
06:59 06:59 06:59
Intake Total 1200 / 1200 1500 / 1500
Output Total 2055 / 2055 1200 / 1200
Balance -855 / -855 300 / 300
Intake:
Oral fluids 1200 / 1200 1200 / 1200
IV piggybacks 300 / 300
Output:
Urine, Voided 1375 / 1375 1200 / 1200
Straight cath output 680 / 680
Other:
How many times incontinent 2 1
SATURATED amount urine
Vital Signs
Temp Pulse Resp BP Pulse Ox
98.3 F 97 19 109/78 99
08/01/23 07:45 08/01/23 07:45 08/01/23 07:45 08/01/23 07:45 08/01/23 07:45
Lab Results
08/01/23 05:21
08/01/23 05:21
Calcium 9.4 mg/dl (8.4-10.2) 08/01/23 05:21
Total Bilirubin 0.4 mg/dl (0.2-1.3) 07/29/23 21:00
AST 23 U/L (17-59) 07/29/23 21:00
ALT 25 U/L (0-50) 07/29/23 21:00
Alkaline Phosphatase 79 U/L (38-126) 07/29/23 21:00
Total Protein 6.6 g/dl (6.3-8.2) 07/29/23 21:00
Albumin 3.5 g/dl (3.5-5.0) 07/29/23 21:00
Physical Exam
-
Gen: NAD
Rectal: Large unstageable sacral decubitus ulcer, some mild bleeding resolved with pressure, ?necrotic tissue around muscle b/l
[2023-08-01] MEDS: LOVENOX 40 MG SC (16:47)
[2023-08-01] MEDS: DAKIN'S SOLUTION 0.125% 1/4 STRENGTH 1 ML TOPICAL (19:56)
[2023-08-01 22:04] LABS: Vancomycin Peak 22.9 ug/ml (18-26)
[2023-08-01] MEDS: CRESTOR 10 MG PO (22:28)
[2023-08-02 03:00] VITALS: BP 120/74
[2023-08-02] MEDS: ZOSYN 50 IV ×3 (05:50→16:33)
[2023-08-02 06:30] LABS: Hematocrit 38.7 % (39.0-52.0); Hemoglobin 12.1 g/dL (13.0-18.0); Mean Corp Hgb Conc. 31.3 g/dL (33.0-37.0); Mean Corpuscular Hgb 27.8 pg (27.0-31.0); Mean Corpuscular Volume 88.8 fL (80.0-94.0); Mean Platelet Volume 8.5 fL (7.4-10.4); Platelet Count 375 10^3/uL (130-400); Red Blood Cell Count 4.36 10^6/uL (4.70-6.10); Red Cell Dist. Width 13.3 % (11.5-14.5)
[2023-08-02 07:00] VITALS: BP 114/77
[2023-08-02 07:10] LABS: Vancomycin Trough 14.5 ug/ml (5-20)
[2023-08-02 07:11] LABS: Blood Urea Nitrogen 14 mg/dl (9-20); Calcium 9.6 mg/dl (8.4-10.2); Carbon Dioxide 29 mmol/L (22-30); Chloride 103 mmol/L (98-107); Estimated Creatinine Clearance 107 ml/min; Glucose 101 mg/dl (70-99); Potassium 4.6 mmol/L (3.5-5.1); Sodium 142 mmol/L (135-145); eGFR > 60.00
[2023-08-02] MEDS: DAKIN'S SOLUTION 0.125% 1/4 STRENGTH 1 ML TOPICAL ×2 (07:16→20:51)
[2023-08-02] MEDS: VANCOCIN 200 IV ×2 (07:16→17:34)
[2023-08-02] MEDS: DITROPAN 5 MG PO ×2 (07:17→20:03)
[2023-08-02] MEDS: DESENEX/MITRAZOL/ZEASORB 1 APPLIC TOPICAL ×2 (07:17→20:03)
[2023-08-02] MEDS: SENOKOT 8.59999999999999964 MG PO (07:17)
[2023-08-02] MEDS: LIORESAL 60 MG PO (07:23)
[2023-08-02] MEDS: NON-FORMULARY ITEM 1 EA TOPICAL (07:23)
--- NOTE | 2023-08-02 07:41 | PHA.VAN.FU ---
Vancomycin Assessment / Plan
- Assessment
Renal Function: Stable
WBC's are: WNL
In the past 24 hrs, patient has been: Afebrile
Concomitant Antimicrobials: ZOSYN
- Assessment - Therapeutic Drug Monitoring
Extrapolated Cmax (mcg/mL): 26.4
Peak level was drawn: Appropriately
Extrapolated Cmin (mcg/mL): 14.8
Trough Drawn: Appropriately
Levels were drawn: At steady state
Calculated AUC (mcg*h/mL): 483
Calculated ke: 0.0526
Calculated half life (H): 13.2
Calculated Vd (L): 78.68
Calculated Vanc CL (ml/min): 69.01
- Dosing Plan
Continue: 1000MG Q12H
- Monitoring Plan
Level(s) appropriate: Recheck trough at minimum of weekly intervals, Repeat sooner for changes in renal function or clinical status
- Follow Up
Pharmacy will continue to follow.
Vancomycin Follow UP
- -
Patient Age: 52
Patient Sex: Male
Vancomycin Day #: 4
Indication: Skin And Soft Tissue
Requesting Provider: Bri Chen
Pertinent Antimicrobial Allergies:
NKDA
Height / Weight:
Height 5 ft 10 in
Actual Weight 69.513 kg
- Vital Signs / Lab Results
Temp Pulse Resp BP Pulse Ox
98.3 F 105 16 120/74 99
08/02/23 03:00 08/02/23 03:00 08/02/23 03:00 08/02/23 03:00 08/02/23 03:00
Lab Results - Hematology
07/30/23 07/31/23 08/01/23
07:28 08:07 05:21
WBC 9.6 8.4 7.6
08/02/23
06:21
WBC 6.0
Lab Results - Chemistry
07/30/23 07/31/23 08/01/23
07:28 08:07 05:21
BUN 16 12 15
Creatinine 0.8 0.7 0.7
Estimated Creat Clear 107 123 123
08/02/23
06:21
BUN 14
Creatinine 0.8
Estimated Creat Clear 107
Microbiology Results
07/31/23 12:10 Tissue Culture - Preliminary
Other-Please specify - Other Gram negative bacilli
Gram Stain - Preliminary
07/29/23 21:00 Blood Culture - Preliminary
Blood/Venous No Growth in 72 hours- Final report to follow
07/29/23 21:00 Blood Culture - Preliminary
Blood/Venous No Growth in 72 hours- Final report to follow
07/29/23 21:19 Wound Culture - Preliminary
Decubitis Ulcer Staphylococcus aureus
Streptococcus pyogenes
Gram negative bacilli
Enterococcus species
Gram Stain - Preliminary
07/31/23 12:10 Anaerobic Culture - Preliminary
Buttock Culture pending. Anaerobic cultures are examined after 3
days incubation. Additional information to follow.
07/29/23 22:19 Urine Culture - Final
Urine No Significant Growth
07/30/23 00:20 MRSA Screen - Final
Nose Staph aureus MRSA
Therapeutic Drug Monitoring
Vancomycin Peak 22.9 ug/ml (18-26) 08/01/23 21:40
Vancomycin Trough 14.5 ug/ml (5-20) 08/02/23 06:21
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
--- NOTE | 2023-08-02 10:53 | W.PN.GS2 ---
Today's Communication / Plan
-
OR tomorrow for debridement
Assessment / Plan
-
This is a 52-year-old incarcerated quadriplegic male with a sacral decubitus ulcer, postoperative day 1 incision and debridement of a large sacral decubitus ulcer in the setting of a recent admission in late June for a small 0.5 cm wound.
POD#2 Incision and debridement of sacral ulcer in preparation for skin and soft tissue flap
Mild necrosis of muscle b/l, dressing changed at bedside
-- Continue changing wound packing with quarter strength Dakin's twice daily, surgical team will do a.m. dressing.
-- Plan for incision and debridement of a sacral decubitus ulcer again tomorrow.
-- NPO at midnight. Ok for regular diet today
-- Regular diet for now with chocolate ensure supplements BID.
-- Abx: Vancomycin and Zosyn. ID following
Subjective Data
-
Date of Service: August 02, 2023
Patient seen and examined at bedside with Dr. Gutiérrez. No active complaints.
Objective Data
-
Intake and Output
08/01/23 08/02/23 08/03/23
06:59 06:59 06:59
Intake Total 1500 / 1500 1445 / 1445
Output Total 1200 / 1200 1125 / 1125
Balance 300 / 300 320 / 320
Intake:
Oral fluids 1200 / 1200 720 / 720
IV fluids (Total) 25 / 25
IV piggybacks 300 / 300 400 / 400
Tavera intermittent irrigation 300 / 300
Output:
Urine, Voided 1200 / 1200 1125 / 1125
Other:
How many times incontinent 1 1
SATURATED amount urine
Vital Signs
Temp Pulse Resp BP Pulse Ox
98.5 F 93 16 114/77 98
08/02/23 07:00 08/02/23 07:00 08/02/23 07:00 08/02/23 07:00 08/02/23 08:00
Lab Results
08/02/23 06:21
08/02/23 06:21
Calcium 9.6 mg/dl (8.4-10.2) 08/02/23 06:21
Total Bilirubin 0.4 mg/dl (0.2-1.3) 07/29/23 21:00
AST 23 U/L (17-59) 07/29/23 21:00
ALT 25 U/L (0-50) 07/29/23 21:00
Alkaline Phosphatase 79 U/L (38-126) 07/29/23 21:00
Total Protein 6.6 g/dl (6.3-8.2) 07/29/23 21:00
Albumin 3.5 g/dl (3.5-5.0) 07/29/23 21:00
Physical Exam
-
Gen: NAD
Rectal: Large sacral decubitus ulcer, slough in wound bed, ?necrotic tissue around muscle b/l. wound is 11 x 7 cm.
[2023-08-02 11:00] VITALS: BP 94/57
[2023-08-02 15:00] VITALS: BP 115/74
[2023-08-02] MEDS: FLEET MINERAL OIL ENEMA RECTAL (15:38)
[2023-08-02] MEDS: LOVENOX 40 MG SC (17:32)
[2023-08-02 19:39] VITALS: BP 102/63
[2023-08-02] MEDS: FLEET MINERAL OIL ENEMA 133 ML RECTAL (20:02)
[2023-08-02] MEDS: CRESTOR 10 MG PO (20:51)
[2023-08-02] MEDS: DUPHALAC/CHRONULAC 20 GRAMS PO (21:25)
[2023-08-02 23:41] VITALS: BP 103/69
--- NOTE | 2023-08-02 23:41 | PTCARENOTE ---
Pt given PRN fleets at aprox 2000 tonight with no results. Pt concerned since he hasn't had a BM in 4-5 days. CATHY Patel notified. Order placed for lactulose BID to start tonight.
[2023-08-03] VITALS (37 sets, daily range): BP systolic 80–134; BP diastolic 51–77
[2023-08-03] MEDS: ZOSYN 50 IV ×4 (00:54→23:21)
[2023-08-03] MEDS: VANCOCIN 200 IV ×2 (06:05→18:23)
[2023-08-03 08:16] LABS: Hematocrit 36.2 % (39.0-52.0); Hemoglobin 11.6 g/dL (13.0-18.0); Mean Corpuscular Hgb 27.8 pg (27.0-31.0); Mean Corpuscular Volume 86.8 fL (80.0-94.0); Mean Platelet Volume 8.6 fL (7.4-10.4); Platelet Count 367 10^3/uL (130-400); Red Blood Cell Count 4.17 10^6/uL (4.70-6.10); Red Cell Dist. Width 13.5 % (11.5-14.5); White Blood Cell Count 5.8 10^3/uL (4.8-10.8)
[2023-08-03 08:52] LABS: Blood Urea Nitrogen 18 mg/dl (9-20); Calcium 9.1 mg/dl (8.4-10.2); Carbon Dioxide 27 mmol/L (22-30); Chloride 102 mmol/L (98-107); Estimated Creatinine Clearance 95 ml/min; Glucose 111 mg/dl (70-99); Potassium 4.3 mmol/L (3.5-5.1); Sodium 137 mmol/L (135-145); eGFR > 60.00
--- NOTE | 2023-08-03 09:28 | PHA.VAN.FU ---
Vancomycin Assessment / Plan
- Assessment
Renal Function: Stable
WBC's are: WNL
In the past 24 hrs, patient has been: Afebrile
Concomitant Antimicrobials: piperacillin/tazobactam
- Dosing Plan
Continue: Vanc 1000mg Q12H
- Monitoring Plan
Peak Level: 08/02 20:30
Trough Level: 08/03 05:30
Monitoring Comments: repeat levels given half-life > interval
levels to be drawn after 9th maintenance dose to assess if patient having additional accumulation with half-life (previously drawn after 5th maintenance dose)
- Follow Up
Pharmacy will continue to follow.
Vancomycin Follow UP
- -
Patient Age: 52
Patient Sex: Male
Vancomycin Day #: 5
Indication: Skin And Soft Tissue
Requesting Provider: Bri Chen / Dr. Sanders
Pertinent Antimicrobial Allergies:
NKDA
Height / Weight:
Height 5 ft 10 in
Actual Weight 69.513 kg
- Vital Signs / Lab Results
Temp Pulse Resp BP Pulse Ox
98.0 F 98 18 108/71 99
08/03/23 07:00 08/03/23 07:00 08/03/23 07:00 08/03/23 07:00 08/03/23 07:00
Lab Results - Hematology
08/01/23 08/02/23 08/03/23
05:21 06:21 06:52
WBC 7.6 6.0 5.8
Lab Results - Chemistry
08/01/23 08/02/23 08/03/23
05:21 06:21 06:52
BUN 15 14 18
Creatinine 0.7 0.8 0.9
Estimated Creat Clear 123 107 95
Microbiology Results
07/31/23 12:10 Tissue Culture - Preliminary
Other-Please specify - Other Klebsiella pneumoniae
Staphylococcus aureus
Enterococcus species
Haemophilus parainfluenzae
Gram Stain - Preliminary
07/29/23 21:00 Blood Culture - Preliminary
Blood/Venous No Growth in 4 days- Final report to follow
07/29/23 21:00 Blood Culture - Preliminary
Blood/Venous No Growth in 4 days- Final report to follow
07/29/23 21:19 Wound Culture - Preliminary
Decubitis Ulcer Staphylococcus aureus
Streptococcus pyogenes
Gram negative bacilli
Enterococcus species
Gram Stain - Preliminary
07/31/23 12:10 Anaerobic Culture - Preliminary
Buttock Culture pending. Anaerobic cultures are examined after 3
days incubation. Additional information to follow.
Therapeutic Drug Monitoring
Vancomycin Peak 22.9 ug/ml (18-26) 08/01/23 21:40
Vancomycin Trough 14.5 ug/ml (5-20) 08/02/23 06:21
[2023-08-03] MEDS: DESENEX/MITRAZOL/ZEASORB 1 APPLIC TOPICAL ×2 (09:51→19:37)
[2023-08-03] MEDS: DITROPAN 5 MG PO ×2 (09:51→19:36)
[2023-08-03] MEDS: DUPHALAC/CHRONULAC PO ×2 (09:52→10:04)
[2023-08-03] MEDS: LIORESAL 60 MG PO (09:52)
[2023-08-03] MEDS: SENOKOT 8.59999999999999964 MG PO (09:52)
[2023-08-03] MEDS: HYDROPHOR 1 APPLIC TOPICAL (09:52)
[2023-08-03] MEDS: DAKIN'S SOLUTION 0.125% 1/4 STRENGTH 473 ML TOPICAL ×2 (09:53→19:37)
[2023-08-03] MEDS: NON-FORMULARY ITEM TOPICAL (09:53)
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
--- NOTE | 2023-08-03 12:55 | PTCARENOTE ---
Sent patient to OR with noon Zosyn dose per Olimpia-op RN.
[2023-08-03] MEDS: ZOSYN IV (13:36)
--- NOTE | 2023-08-03 15:12 | PTCARENOTE ---
1452 BP remains hypotensive/labile, patient asymptomatic, IVF wide open, reached out to Dr Hdez for evaluation, pendiing.
--- NOTE | 2023-08-03 15:14 | PTCARENOTE ---
Patient BP 86/59, HR 80's, remains asymptomatic. No C/O waiting for Dr Hdez to eval dispo
--- NOTE | 2023-08-03 15:54 | PTCARENOTE ---
7565 Dr Connell notified in PACU to eval patient, BP dropping and HR 49, phenylephrine drip orderedlow dose, however BP stabilized MAP 80 [address] HR [address] 81[address] Connell aware and Phenylephrine drip placed on hold.
--- NOTE | 2023-08-03 16:20 | PTCARENOTE ---
Patient s/p debridement, returned from PACU. BP stable at this current time however with brief episode of bradycardia to 46 at arrival. Returned back to SR.
--- NOTE | 2023-08-03 16:25 | PTCARENOTE ---
1600 Patient VSS MAP is 80 and HR now 81, spoke with Dr Connell and patient may return to hhis room.
--- NOTE | 2023-08-03 17:00 | PTCARENOTE ---
Patient with recurrent episodes of bradycardia to the 40's. Asymptomatic.
[2023-08-03] MEDS: LOVENOX 40 MG SC (18:23)
[2023-08-03] MEDS: DUPHALAC/CHRONULAC 20 GRAMS PO (19:36)
[2023-08-03 20:56] LABS: Vancomycin Peak 30.3 ug/ml (18-26)
[2023-08-03] MEDS: CRESTOR 10 MG PO (21:28)
[2023-08-04 03:51] VITALS: BP 94/67
[2023-08-04] MEDS: ZOSYN 50 IV ×4 (05:16→23:35)
[2023-08-04] MEDS: VANCOCIN 200 IV (06:32)
[2023-08-04 06:46] LABS: % Basophils 0.3 % (0-2); % Eosinophils 0.2 % (0-6); % Immature Granulocytes 0.5 % (0-0.5); % Lymphocytes 16.5 % (20.5-51.1); % Monocytes 7.2 % (1.7-9.3); % Neutrophils 75.3 % (42.2-75.2); Absolute Monocytes 0.5 10^3/uL (0.1-0.6); Absolute Neutrophils 4.7 10^3/uL (1.4-6.5); Hematocrit 35.4 % (39.0-52.0); Hemoglobin 11.6 g/dL (13.0-18.0); Mean Corp Hgb Conc. 32.8 g/dL (33.0-37.0); Mean Corpuscular Volume 85.5 fL (80.0-94.0); Mean Platelet Volume 8.4 fL (7.4-10.4); Nucleated Red Blood Cells % 0 % (-); Platelet Count 405 10^3/uL (130-400); Red Blood Cell Count 4.14 10^6/uL (4.70-6.10); Red Cell Dist. Width 13.3 % (11.5-14.5); White Blood Cell Count 6.2 10^3/uL (4.8-10.8)
[2023-08-04 06:55] LABS: Blood Urea Nitrogen 25 mg/dl (9-20); Calcium 9.1 mg/dl (8.4-10.2); Carbon Dioxide 27 mmol/L (22-30); Chloride 105 mmol/L (98-107); Estimated Creatinine Clearance 95 ml/min; Glucose 127 mg/dl (70-99); Potassium 4.8 mmol/L (3.5-5.1); Sodium 140 mmol/L (135-145); eGFR > 60.00
[2023-08-04 07:21] LABS: Vancomycin Trough 17.4 ug/ml (5-20)
[2023-08-04 07:37] VITALS: BP 99/66
[2023-08-04] MEDS: DUPHALAC/CHRONULAC 20 GRAMS PO ×2 (08:10→19:45)
[2023-08-04] MEDS: DITROPAN 5 MG PO ×2 (08:11→19:45)
[2023-08-04] MEDS: LIORESAL 60 MG PO (08:11)
[2023-08-04] MEDS: SENOKOT 8.59999999999999964 MG PO (08:11)
[2023-08-04] MEDS: DESENEX/MITRAZOL/ZEASORB 1 APPLIC TOPICAL ×2 (08:13→19:45)
[2023-08-04] MEDS: NON-FORMULARY ITEM TOPICAL (08:24)
--- NOTE | 2023-08-04 08:28 | PHA.VAN.FU ---
Vancomycin Assessment / Plan
- Assessment
Renal Function: Stable
WBC's are: WNL
In the past 24 hrs, patient has been: Afebrile
Concomitant Antimicrobials: piperacillin/tazobactam
- Assessment - Therapeutic Drug Monitoring
Extrapolated Cmax (mcg/mL): 32.1
Peak level was drawn: Appropriately (drawn ~1H after end of preivous infusion)
Extrapolated Cmin (mcg/mL): 17.5
Trough Drawn: Appropriately
Levels were drawn: At steady state (levels to be drawn after 9th maintenance dose)
Calculated AUC (mcg*h/mL): 580
Calculated ke: 0.0551
Calculated half life (H): 12.6
Calculated Vd (L): 63 (0.9 L/kg)
Calculated Vanc CL (ml/min): 57
- Dosing Plan
Adjust Regimen to: Vanc 1500mg Q24H starting 08/04 599
New Regimen Predicts: AUC (453), Peak (32.7), Trough (9.5)
Patient had additional accumulation - will change to Q24H
May still have slight additional accumulation compared to predicted PK above
- Monitoring Plan
No level(s) ordered at this time: consider levels in next few days
- Follow Up
Pharmacy will continue to follow.
Vancomycin Follow UP
- -
Patient Age: 52
Patient Sex: Male
Vancomycin Day #: 6
Indication: Skin And Soft Tissue
Requesting Provider: Bri Chen / Dr. Sanders
Pertinent Antimicrobial Allergies:
NKDA
Height / Weight:
Height 5 ft 10 in
Actual Weight 69.513 kg
- Vital Signs / Lab Results
Temp Pulse Resp BP Pulse Ox
97.9 F 84 19 99/66 99
08/04/23 07:37 08/04/23 07:37 08/04/23 07:37 08/04/23 07:37 08/04/23 07:37
Lab Results - Hematology
08/02/23 08/03/23 08/04/23
06:21 06:52 06:31
WBC 6.0 5.8 6.2
Lab Results - Chemistry
08/02/23 08/03/23 08/04/23
06:21 06:52 06:31
BUN 14 18 25 H
Creatinine 0.8 0.9 0.9
Estimated Creat Clear 107 95 95
Microbiology Results
07/29/23 21:00 Blood Culture - Final
Blood/Venous No Growth - Final Report
07/29/23 21:00 Blood Culture - Final
Blood/Venous No Growth - Final Report
07/31/23 12:10 Anaerobic Culture - Preliminary
Buttock Culture pending. Anaerobic cultures are examined after 3
days incubation. Additional information to follow.
07/29/23 21:19 Wound Culture - Final
Decubitis Ulcer Staph aureus MRSA
Streptococcus pyogenes
Klebsiella pneumoniae
Enterococcus faecalis
Gram Stain - Final
07/31/23 12:10 Tissue Culture - Final
Other-Please specify - Other Klebsiella pneumoniae
Staph aureus MRSA
Enterococcus faecalis
Haemophilus parainfluenzae
Gram Stain - Final
Therapeutic Drug Monitoring
Vancomycin Peak 30.3 ug/ml (18-26) H 08/03/23 20:27
Vancomycin Trough 17.4 ug/ml (5-20) 08/04/23 06:31
--- NOTE | 2023-08-04 09:13 | W.IMMPOSTOP ---
Addendum entered and electronically signed by Luan Gutiérrez MD 08/04/23 09:19:
This is a delayed entry note from surgery that took place on 08/03/2023.
Original Note:
Surgical Immed Post Op Note
-
Primary Surgeon: Luan Gutiérrez MD
Assisting Surgeon: None
Pre-op Diagnosis: Sacral decubitus ulcer
Post-op Diagnosis: Same
Procedure Performed: Debridement of sacral ulcer
Anesthesia Type: MAC
Specimen / Cultures: None
Estimated Blood Loss: 11 cc
Complications: None
Operative Findings: Additional necrotic tissue noted at the right and left periphery of the wound bed. Additional tissue taken. Some purulence and exudative fluid was noted particular on the right side of the sacral ulcer bed. Final wound
dimensions were 12 x 7 by a roughly 2 cm. The wound was packed with Betadine soaked kerlix followed by ABDs and mesh underwear.
POST OP PLAN:
Imaging: None
Labs: Routine AM
Diet: Advance to Regular as tolerated
Analgesia: Tylenol 650mg q6 Warren, Reshma 5mg q6 PRN, Dilaudid 0.5mg q2h PRN
Neuro/vascular checks: q4h
AC/AP: Hold Therapeutic AC, Ok for DVT PPx
Activity: Ad Latoya
Wound/Incisions/Drains: Continue wound wound care.
Abx: Continue antibiotics
Dispo: RNF
--- NOTE | 2023-08-04 09:19 | OR.RPT ---
Operative Report
Operative Report
Patient Name: Dayron Hogan
: 1970
Date of Operation: 08/03/2023
Preoperative Diagnosis: Sacral decubitus ulcer
Postoperative Diagnosis: Same
Procedure(s):
Excisional debridement of sacral decubitus ulcer
Surgeon(s):
Dr. Gutiérrez
Program Analyst(s):
None
Anesthesia: General
Estimated Blood Loss: 11 cc
Urine Output: None
Drains/Lines/Implants: None
Specimens:
None
Operative Findings: Additional necrotic tissue noted at the right and left periphery of the wound bed. Additional tissue taken. Some purulence and exudative fluid was noted particular on the right side of the sacral ulcer bed. Final wound
dimensions were 12 x 7 by a roughly 2 cm. The wound was packed with Betadine soaked kerlix followed by ABDs and mesh underwear.
Details of the operation:
The patient was brought to the operating room and after successful induction of general anesthesia, the patient was rotated into the prone position. All bony prominences were appropriately padded. His sacral dressing was removed and the area was
prepped with Betadine and draped in the usual fashion. A team timeout was performed. Using combination of curettes, sharp dissection with a 15 blade as well as electrocautery all remaining necrotic tissue was removed, particularly the lateral
aspects of the wound bed. There was more purulence and exudative fluid noted on the right side of the sacral ulcer bed. Hemostasis was achieved. Final wound dimensions were 12 x 7 cm and roughly 2 cm thick. The wound was repacked with Betadine
soaked kerlix followed by ABDs and mesh underwear. No further cultures were taken during this operation. All counts were correct at the end of procedure. The patient was then transferred back to the floor for further monitoring and care.
I was the attending physician and performed the procedure with no assistance. I was present for all portions of the case
Luan Gutiérrez MD
--- NOTE | 2023-08-04 10:09 | WOUNDNOTE ---
JADON RN NOTE: Followed up today along with Dr. Wayne post sacral debridement. No change in wound care per Dr. Wayne, continue with Dakin's WTD, dressing changed. On air overlay with adequate inflation, palm check done. Repositioned patient onto L
semi side lying position with air cushion btw knees.
--- NOTE | 2023-08-04 10:22 | WOUNDNOTE ---
JADON PENDLETON ADDENDUM: Dressings changed on heels, both are intact.
[2023-08-04] MEDS: DAKIN'S SOLUTION 0.125% 1/4 STRENGTH 473 ML TOPICAL ×2 (10:42→19:46)
[2023-08-04 11:25] VITALS: BP 104/67
--- NOTE | 2023-08-04 11:25 | W.PN.SURGUPD ---
Surgical Update
Surgical Update
Dressing change performed with wound care. See separate note and imaging for details. Superficial slough and brownish discoloration of the presacral fascia, no evidence of necrosis or purulence. Eschar from prior cautery along the lateral aspect
of the wound controlling healthy bleeding muscle. No need or indication for further surgical debridement or management at this time. Given his current social situation and limited ability for offloading and wound care this remains a high risk
situation for persistent wound related issues and need for further debridements. Continue with local wound care at this time.
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
--- NOTE | 2023-08-04 12:35 | CM ---
Addendum entered by Eboni Hdez 08/04/23 15:00:
Sachin PENDLETON from [facility] updated re need for IV anbx via midline catheter.
Zosyn 3.375 gm IV q 6 and Vanco 1500 mg IV q 24
Per Sachin unable to get IV anbx until tomorrow.
updated.
Original Note:
Continue local care and IV anbx.
Patient from [facility]
Report: [facility] # [phone]
Fax#: [phone].
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
[2023-08-04 15:05] VITALS: BP 97/64
[2023-08-04] MEDS: FLEET MINERAL OIL ENEMA 133 ML RECTAL (16:34)
[2023-08-04] MEDS: LOVENOX 40 MG SC (18:22)
[2023-08-04 19:17] VITALS: BP 94/61
[2023-08-04] MEDS: CRESTOR 10 MG PO (21:39)
[2023-08-04 23:18] VITALS: BP 98/59
[2023-08-05 03:38] VITALS: BP 102/62
--- NOTE | 2023-08-05 03:41 | DOWNTIME ---
There was a [employer] Client Air Table Operator Downtime on 08/05/2023 from 0100 to 08/05/2023 at 0337. Downtime documentation of patient's care, including medication administrations, has been reconciled in the electronic record per guidelines. Refer to the
patient's paper chart under the miscellaneous tab to see printed paper medication records and downtime forms.
[2023-08-05] MEDS: ZOSYN 50 IV ×4 (05:31→23:44)
[2023-08-05] MEDS: VANCOCIN 300 MG IV (06:08)
[2023-08-05] MEDS: VANCOCIN 300 ML IV (06:08)
[2023-08-05 07:40] LABS: % Basophils 0.9 % (0-2); % Eosinophils 6.6 % (0-6); % Immature Granulocytes 0.6 % (0-0.5); % Lymphocytes 23.9 % (20.5-51.1); % Monocytes 11.1 % (1.7-9.3); % Neutrophils 56.9 % (42.2-75.2); Absolute Basophils 0.1 10^3/uL (0-0.2); Absolute Eosinophils 0.6 10^3/uL (0-0.7); Absolute Immature Granulocytes 0.1 10^3/uL (0-0.05); Absolute Lymphocytes 2.1 10^3/uL (1.2-3.4); Hematocrit 33.9 % (39.0-52.0); Hemoglobin 10.9 g/dL (13.0-18.0); Mean Corp Hgb Conc. 32.2 g/dL (33.0-37.0); Mean Corpuscular Hgb 27.9 pg (27.0-31.0); Mean Corpuscular Volume 86.9 fL (80.0-94.0); Mean Platelet Volume 8.6 fL (7.4-10.4); Nucleated Red Blood Cells % 0 % (-); Platelet Count 356 10^3/uL (130-400); Red Cell Dist. Width 13.8 % (11.5-14.5); White Blood Cell Count 8.8 10^3/uL (4.8-10.8)
[2023-08-05 08:05] VITALS: BP 112/75
[2023-08-05 08:12] LABS: Blood Urea Nitrogen 23 mg/dl (9-20); Calcium 8.9 mg/dl (8.4-10.2); Carbon Dioxide 24 mmol/L (22-30); Chloride 106 mmol/L (98-107); Estimated Creatinine Clearance 95 ml/min; Glucose 95 mg/dl (70-99); Potassium 4.3 mmol/L (3.5-5.1); Sodium 140 mmol/L (135-145); eGFR > 60.00
--- NOTE | 2023-08-05 08:46 | PHA.VAN.FU ---
Vancomycin Assessment / Plan
- Assessment
Renal Function: Stable
WBC's are: WNL
In the past 24 hrs, patient has been: Afebrile
Concomitant Antimicrobials: piperacillin/tazobactam
- Dosing Plan
Continue: Vanc 1500mg Q24H (adjusted 08/03 with first dose today)
- Monitoring Plan
No level(s) ordered at this time: consider repeat level(s) by Thursday
- Follow Up
Pharmacy will continue to follow.
Vancomycin Follow UP
- -
Patient Age: 52
Patient Sex: Male
Vancomycin Day #: 7
Indication: Skin And Soft Tissue
Requesting Provider: Bri Chen / Dr. Sanders
Pertinent Antimicrobial Allergies:
NKDA
Height / Weight:
Height 5 ft 10 in
Actual Weight 69.513 kg
- Vital Signs / Lab Results
Temp Pulse Resp BP Pulse Ox
98.3 F 94 16 112/75 99
08/05/23 08:05 08/05/23 08:05 08/05/23 08:05 08/05/23 08:05 08/05/23 08:05
Lab Results - Hematology
08/03/23 08/04/23 08/05/23
06:52 06:31 07:01
WBC 5.8 6.2 8.8
Lab Results - Chemistry
08/03/23 08/04/23 08/05/23
06:52 06:31 07:01
BUN 18 25 H 23 H
Creatinine 0.9 0.9 0.9
Estimated Creat Clear 95 95 95
Microbiology Results
07/29/23 21:00 Blood Culture - Final
Blood/Venous No Growth - Final Report
07/29/23 21:00 Blood Culture - Final
Blood/Venous No Growth - Final Report
07/31/23 12:10 Anaerobic Culture - Preliminary
Buttock Culture pending. Anaerobic cultures are examined after 3
days incubation. Additional information to follow.
07/29/23 21:19 Wound Culture - Final
Decubitis Ulcer Staph aureus MRSA
Streptococcus pyogenes
Klebsiella pneumoniae
Enterococcus faecalis
Gram Stain - Final
07/31/23 12:10 Tissue Culture - Final
Other-Please specify - Other Klebsiella pneumoniae
Staph aureus MRSA
Enterococcus faecalis
Haemophilus parainfluenzae
Gram Stain - Final
Therapeutic Drug Monitoring
Vancomycin Peak 30.3 ug/ml (18-26) H 08/03/23 20:27
Vancomycin Trough 17.4 ug/ml (5-20) 08/04/23 06:31
[2023-08-05 10:31] VITALS: BP 98/60
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
[2023-08-05] MEDS: CITROMA 300 ML PO (11:07)
[2023-08-05] MEDS: FLUSH (NSS) 1 FLUSH IV ×2 (11:07→17:10)
[2023-08-05] MEDS: SENOKOT 8.59999999999999964 MG PO (11:10)
[2023-08-05] MEDS: DITROPAN 5 MG PO ×2 (11:10→20:09)
[2023-08-05] MEDS: NON-FORMULARY ITEM TOPICAL (11:10)
[2023-08-05] MEDS: DUPHALAC/CHRONULAC 20 GRAMS PO ×2 (11:10→20:09)
[2023-08-05] MEDS: LIORESAL 60 MG PO (11:14)
--- NOTE | 2023-08-05 12:06 | W.PN.ID1 ---
Date of Service
Date of Service: August 05, 2023
Today's Communication
Continue antibiotics. See below�
Assessment / Plan
Infected sacral decubiti
- s/p debridement x2
Leukocytosis
Pyuria/bacteriuria; Hx chronic straight cath secondary to neurogenic bladder
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
Dyslipidemia
Recommendations:
Continue with Zosyn and vancomycin. Would continue for an additional 9 days.
Offload area as possible.
Given extensive nature of wound, and difficulty with offloading, patient remains at extremely high risk for recurrent infection.
Ultimately may require diverting colostomy.
����������������������������������������������������������
Chief Complaint
-: Other (necrotic sacral decubiti)
Subjective / Review of Systems
Review of Systems: No Fever and No Chills
Vital Signs / Physical Exam
Vital Signs
Vital Signs
Temp Pulse Resp BP Pulse Ox
98.1 F 112 16 98/60 98
08/05/23 10:31 08/05/23 10:31 08/05/23 10:31 08/05/23 10:31 08/05/23 10:31
Physical Exam
Constitutional: No Acute Distress, Comfortable, Chronically Ill and Non-toxic
Eyes: Sclera Anicteric
Cardiovascular: S1/S2; Negative S3/S4
Pulmonary: Clear; Negative Wheezes
Gastrointestinal: Soft, Non Tender and Non Distended
Wound: Other (Sacral wound dressed. Area with clean tissue s/p debridement. No malodor,)
Neurological: Awake, Alert and Oriented
Psychological: Calm
Objective Data
Lab Data
Lab Results
08/05/23 07:01
08/05/23 07:01
Estimated Creat Clear 95 ml/min 08/05/23 07:01
Lactic Acid 1.3 mmol/L (0.7-2.0) 07/29/23 21:00
Total Bilirubin 0.4 mg/dl (0.2-1.3) 07/29/23 21:00
AST 23 U/L (17-59) 07/29/23 21:00
ALT 25 U/L (0-50) 07/29/23 21:00
Alkaline Phosphatase 79 U/L (38-126) 07/29/23 21:00
Most recent labs reviewed.
Micro Results:
07/31/23 12:10 Anaerobic Culture - Final
Buttock
07/29/23 21:00 Blood Culture - Final
Blood/Venous No Growth - Final Report
07/29/23 21:00 Blood Culture - Final
Blood/Venous No Growth - Final Report
07/29/23 21:19 Wound Culture - Final
Decubitis Ulcer Staph aureus MRSA
Streptococcus pyogenes
Klebsiella pneumoniae
Enterococcus faecalis
Gram Stain - Final
07/31/23 12:10 Tissue Culture - Final
Other-Please specify - Other Klebsiella pneumoniae
Staph aureus MRSA
Enterococcus faecalis
Haemophilus parainfluenzae
Gram Stain - Final
07/29/23 22:19 Urine Culture - Final
Urine No Significant Growth
07/30/23 00:20 MRSA Screen - Final
Nose Staph aureus MRSA
[2023-08-05] MEDS: FLEET MINERAL OIL ENEMA 133 ML RECTAL (12:09)
--- NOTE | 2023-08-05 12:20 | CM ---
Addendum entered by Eboni Hdez 08/05/23 16:09:
Per Sachin, medications still did not arrived. Possibly due to the holiday.
Per Sachin hopefully Zosyn will arrive with delivery tomorrow.
[facility] usually receives delivery around 1 pm.
CM will call [facility] in early afternoon tomorrow to see if medications received.
Addendum entered by Eboni Hdez 08/05/23 14:47:
TC to [facility], Sachin is checking on medication.
Addendum entered by Eboni Hdez 08/05/23 14:32:
Per Isatu they can give Zosyn IV q 6. Facility still has not received medication, Isatu will call CM when medication arrives at [facility].
Original Note:
Spoke with Isatu at the [facility] today to verify medications are available.
Zosyn is not yet available, Vanco is available. (4 viles)
Per RN she is checking to see if q 6 hours for the Zosyn is going to be able to be given and will call CM back.
Continue local care and IV anbx.
Patient from [facility]
Report: [facility] # [phone]
Fax#: [phone].
[2023-08-05] MEDS: DAKIN'S SOLUTION 0.125% 1/4 STRENGTH 5 ML TOPICAL (12:47)
[2023-08-05] MEDS: DESENEX/MITRAZOL/ZEASORB 1 APPLIC TOPICAL ×2 (12:53→20:13)
--- NOTE | 2023-08-05 13:17 | W.DCSUMMARY ---
Discharge Summary
Discharge Data
Date of Admission: 07/29/23
Date of Discharge: 08/07/23
-
Pending Results: No
Hospital Course
52-year-old male with past medical history of sacral wound, anemia, cervical spinal cord injury with quadriplegia, neurogenic bowel and bladder, hyperlipidemia, spinal fusion, chronic constipation came to the hospital with sepsis secondary to sacral
wound infection. Patient was seen by infectious disease throughout hospitalization. Patient underwent multiple times wound debridement by surgery. Wound culture was consistent with Klebsiella, MRSA, Enterococcus and haemophilus. Infectious
disease finalized antibiotics to vancomycin and Zosyn to complete the course. On this hospitalization patient also had constipation which over time improved. Once antibiotics was available at the [facility], patient was then discharged back to [facility]
with instructions to follow-up with all her physicians outpatient.
Discharge Plan
-
Patient Disposition: Alf
Discharge Diagnosis/Procedures: Sepsis secondary to sacral wound infection status post debridement
History of quadriplegia
constipation
Condition: Fair
Diet: As tolerated
Activity: As tolerated
Driving Restrictions: No driving
Bathing Restrictions: None
Activity Restrictions/Additional Instructions:
Wound Care Instructions
Sacral ulcer-clean with saline, miconazole powder followed by no sting barrier wipe to surrounding skin, apply/pack with 1/4 strength Dakin's moistened Kerlix, dry gauze pads, ABD pads, secure with Medipore or silicone tape, change bid.
Air mattress.
Turning schedule
Elevate heels off bed with pillow/s and/or air chair cushion; may use soft heel relief boots if needed (i.e. Foot Waffle or TruVue lite boots).
Roho wheelchair cushion.
Follow up with wound care trainer or at wound care center call for an appointment.
OFFLOAD AREA MUCH POSSIBLE
Continue with vancomycin and Zosyn for another 9 days
Referrals:
[facility] [Family Provider] - in less than 1 week
Dayron Sanders DO [Active] -
Santos Goins MD [Active] -
Prescriptions:
New
miconazole nitrate [Miconazorb AF] 2 % Powder
1 applic topical BID Qty: 0 0RF
Zosyn in dextrose (iso-osm) 3.375 gram/50 mL Piggyback
3.375 g IV Q6H Qty: 0 0RF
Dakin's Solution 0.125 % Solution
1 applic topical BID Qty: 0 0RF
lactulose 20 gram/30 mL Solution
20 g PO BID Qty: 0 0RF
IV with Additives
Vancomycin [Vancocin] 1500 MG
0.9% Sodium Chloride [Nss] 20 ML
0.9% Sodium Chloride 250 ml [Nss] 250 ML
200 mls/hr IV Q24H
Ordered By: Flash Shabazz MD
Last Taken: 08/07/23 06:12 300 mls
Protocol: None
Protocol Text:
DOSING PER PHARMACY
Please contact pharmacy with any questions.
Continued
lubricants [K-Y Lubricating] Gel
1 ea TOPICAL DAILY
baclofen 20 mg Tablet
60 mg PO DAILY
oxybutynin chloride 5 mg Tablet
5 mg PO BID
rosuvastatin 10 mg Tablet
10 mg PO HS
Cetaphil Cream
1 applic TOPICAL DAILYPRN PRN (Reason: dryness)
ascorbic acid (vitamin C) [Vitamin C] 500 mg Tablet
500 mg PO DAILY 30 Days Qty: 30 0RF
multivitamin with folic acid [Tab-A-Alida] 400 mcg Tablet
1 tab PO DAILY 30 Days Qty: 30 0RF
Fleet Enema 19-7 gram/118 mL Enema
118 ml TN DAILYPRN PRN (Reason: constipation)
Santyl 250 unit/gram Ointment
1 applic TOPICAL HS
sennosides [senna] 8.6 mg Tablet
8.6 mg PO DAILY
acetaminophen 325 mg Tablet
650 mg PO BIDPRN PRN (Reason: mild pain/fever)
bisacodyl 5 mg Tablet
10 mg PO DAILYPRN PRN (Reason: constipation)
chlorpheniramine-phenylephrine 4-10 mg Tablet
1 tab PO BIDPRN PRN (Reason: allergies)
polyethylene glycol 3350 [Miralax] 17 gram powder in packet
17 g PO DAILYPRN PRN (Reason: constipation)
docusate sodium 100 mg capsule
100 mg PO BIDPRN PRN (Reason: constipation)
Discontinued
meloxicam 15 mg Tablet
15 mg PO DAILYPRN PRN (Reason: mild pain)
Discharge Orders:
Discharge Patient (As Directed); Ordered 08/05/23
Ordered By: Flash Shabazz
Discharge Date and Time
Discharge Date/Time: 08/07/23 10:06
Print Language: CYPRIOT
[2023-08-05 14:40] VITALS: BP 113/79
[2023-08-05] MEDS: LOVENOX 40 MG SC (17:11)
[2023-08-05] MEDS: TYLENOL 650 MG PO (17:18)
[2023-08-05 19:46] VITALS: BP 106/73
[2023-08-05] MEDS: CRESTOR 10 MG PO (20:09)
[2023-08-05] MEDS: DAKIN'S SOLUTION 0.125% 1/4 STRENGTH 1 ML TOPICAL (20:12)
[2023-08-05 23:06] VITALS: BP 95/61
[2023-08-06 03:22] VITALS: BP 93/65
[2023-08-06 05:09] LABS: % Basophils 1.1 % (0-2); % Eosinophils 9.6 % (0-6); % Immature Granulocytes 0.5 % (0-0.5); % Lymphocytes 22.3 % (20.5-51.1); % Monocytes 7.9 % (1.7-9.3); % Neutrophils 58.6 % (42.2-75.2); Absolute Basophils 0.1 10^3/uL (0-0.2); Absolute Eosinophils 0.7 10^3/uL (0-0.7); Absolute Lymphocytes 1.7 10^3/uL (1.2-3.4); Absolute Monocytes 0.6 10^3/uL (0.1-0.6); Absolute Neutrophils 4.5 10^3/uL (1.4-6.5); Hematocrit 34.3 % (39.0-52.0); Hemoglobin 11.1 g/dL (13.0-18.0); Mean Corp Hgb Conc. 32.4 g/dL (33.0-37.0); Mean Corpuscular Volume 86.6 fL (80.0-94.0); Mean Platelet Volume 8.3 fL (7.4-10.4); Nucleated Red Blood Cells % 0 % (-); Platelet Count 317 10^3/uL (130-400); Red Blood Cell Count 3.96 10^6/uL (4.70-6.10); Red Cell Dist. Width 13.7 % (11.5-14.5); White Blood Cell Count 7.6 10^3/uL (4.8-10.8)
[2023-08-06] MEDS: ZOSYN 50 IV ×4 (05:23→23:10)
[2023-08-06 05:33] LABS: Blood Urea Nitrogen 16 mg/dl (9-20); Calcium 9.2 mg/dl (8.4-10.2); Carbon Dioxide 27 mmol/L (22-30); Chloride 104 mmol/L (98-107); Estimated Creatinine Clearance 107 ml/min; Glucose 92 mg/dl (70-99); Potassium 4.4 mmol/L (3.5-5.1); Sodium 139 mmol/L (135-145); eGFR > 60.00
[2023-08-06] MEDS: VANCOCIN 300 ML IV (06:02)
[2023-08-06] MEDS: VANCOCIN 300 MG IV (06:02)
[2023-08-06 07:34] VITALS: BP 119/89
--- NOTE | 2023-08-06 08:10 | PHA.VAN.FU ---
Vancomycin Assessment / Plan
- Assessment
Renal Function: Stable
WBC's are: WNL
In the past 24 hrs, patient has been: Afebrile
Concomitant Antimicrobials: piperacillin/tazobactam
- Dosing Plan
Continue: Vanc 1500mg Q24H
- Monitoring Plan
No level(s) ordered at this time: consider trough by Thursday (final level if stable)
- Follow Up
Pharmacy will continue to follow.
Vancomycin Follow UP
- -
Patient Age: 52
Patient Sex: Male
Vancomycin Day #: 8
Indication: Skin And Soft Tissue
Requesting Provider: Bri Chen / Dr. Sanders
Pertinent Antimicrobial Allergies:
NKDA
Height / Weight:
Height 5 ft 10 in
Actual Weight 69.513 kg
- Vital Signs / Lab Results
Temp Pulse Resp BP Pulse Ox
97.8 F 88 17 119/89 99
08/06/23 07:34 08/06/23 07:34 08/06/23 07:34 08/06/23 07:34 08/06/23 07:34
Lab Results - Hematology
08/03/23 08/04/23 08/05/23
06:52 06:31 07:01
WBC 5.8 6.2 8.8
08/06/23
04:52
WBC 7.6
Lab Results - Chemistry
08/03/23 08/04/23 08/05/23
06:52 06:31 07:01
BUN 18 25 H 23 H
Creatinine 0.9 0.9 0.9
Estimated Creat Clear 95 95 95
08/06/23
04:52
BUN 16
Creatinine 0.8
Estimated Creat Clear 107
Microbiology Results
07/31/23 12:10 Anaerobic Culture - Final
Buttock
Therapeutic Drug Monitoring
Vancomycin Peak 30.3 ug/ml (18-26) H 08/03/23 20:27
Vancomycin Trough 17.4 ug/ml (5-20) 08/04/23 06:31
[2023-08-06] MEDS: DITROPAN 5 MG PO ×2 (09:36→21:22)
[2023-08-06] MEDS: LIORESAL 60 MG PO (09:36)
[2023-08-06] MEDS: SENOKOT 8.59999999999999964 MG PO (09:37)
[2023-08-06] MEDS: NON-FORMULARY ITEM TOPICAL (09:40)
[2023-08-06] MEDS: DUPHALAC/CHRONULAC 20 GRAMS PO ×2 (09:41→21:22)
--- NOTE | 2023-08-06 10:29 | CM ---
TC to [facility], spoke with [facility] nurse- medications still have not been received.
CM will be notified when medications are received by [facility].
Plan: Continue local care and IV anbx.
Patient from [facility]
Report: [facility] # [phone]
Fax#: [phone].
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
[2023-08-06 11:29] VITALS: BP 106/79
[2023-08-06] MEDS: FLUSH (NSS) 2 FLUSH IV (12:11)
--- NOTE | 2023-08-06 12:23 | W.PN.ID1 ---
Date of Service
Date of Service: August 06, 2023
Today's Communication
Continue antibiotics. See below�
Assessment / Plan
Infected sacral decubiti
- s/p debridement x2
Leukocytosis
Pyuria/bacteriuria; Hx chronic straight cath secondary to neurogenic bladder
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
Dyslipidemia
Recommendations:
Continue with Zosyn and vancomycin. Would continue for an additional 8 days. [facility]
Offload area as possible.
Given extensive nature of wound, and difficulty with offloading, patient remains at extremely high risk for recurrent infection.
Ultimately may require diverting colostomy.
����������������������������������������������������������
Chief Complaint
-: Other (necrotic sacral decubiti)
Subjective / Review of Systems
Patient seen and examined. No difficulty with antibiotics thus far. Awaiting facility to receive antibiotics.
Review of Systems: No Fever and No Chills
Vital Signs / Physical Exam
Vital Signs
Vital Signs
Temp Pulse Resp BP Pulse Ox
97.8 F 93 17 106/79 100
08/06/23 11:29 08/06/23 11:29 08/06/23 11:29 08/06/23 11:29 08/06/23 11:29
Physical Exam
Constitutional: No Acute Distress and Comfortable
Eyes: Sclera Anicteric
Pulmonary: Clear and Non Labored
Gastrointestinal: Non Distended
Wound: Other (Sacral wound dressed. Area with clean tissue s/p debridement. No malodor,)
Neurological: Awake, Alert and Oriented
Psychological: Calm
Objective Data
Lab Data
Lab Results
08/06/23 04:52
08/06/23 04:52
Estimated Creat Clear 107 ml/min 08/06/23 04:52
Lactic Acid 1.3 mmol/L (0.7-2.0) 07/29/23 21:00
Total Bilirubin 0.4 mg/dl (0.2-1.3) 07/29/23 21:00
AST 23 U/L (17-59) 07/29/23 21:00
ALT 25 U/L (0-50) 07/29/23 21:00
Alkaline Phosphatase 79 U/L (38-126) 07/29/23 21:00
Most recent labs reviewed.
Micro Results:
07/31/23 12:10 Anaerobic Culture - Final
Buttock
07/29/23 21:00 Blood Culture - Final
Blood/Venous No Growth - Final Report
07/29/23 21:00 Blood Culture - Final
Blood/Venous No Growth - Final Report
07/29/23 21:19 Wound Culture - Final
Decubitis Ulcer Staph aureus MRSA
Streptococcus pyogenes
Klebsiella pneumoniae
Enterococcus faecalis
Gram Stain - Final
07/31/23 12:10 Tissue Culture - Final
Other-Please specify - Other Klebsiella pneumoniae
Staph aureus MRSA
Enterococcus faecalis
Haemophilus parainfluenzae
Gram Stain - Final
07/29/23 22:19 Urine Culture - Final
Urine No Significant Growth
07/30/23 00:20 MRSA Screen - Final
Nose Staph aureus MRSA
Tissue Culture Final 08/03/23-1020
Many Klebsiella pneumoniae
Few Staph aureus MRSA
Moderate Enterococcus faecalis
Moderate Haemophilus parainfluenzae Beta Lactamase
Positive
Isolation Precautions Required
Organism 1 Klebsiella pneumoniae
Organism 2 Staph aureus MRSA
Organism 3 Enterococcus faecalis
K.PNEUMO MRSA ENTFCL
M.I.C. RX M.I.C. RX M.I.C. RX
--------- --- --------- --- --------- ---
Amoxicillin/Potas. Clavulanate <=8/4 S <=4/2 R
Ampicillin >16 R >8 R <=2 S
Ampicillin/Sulbactam 16/8 I
Cefazolin 8 R
Cefepime <=2 S
Ceftazidime <=1 S
Ceftriaxone <=1 S
Clindamycin >4 R
Ertapenem <=0.5 S
Ciprofloxacin <=0.25 S
Gentamicin <=4 S <=4 S
Gentamicin Synergy Screen <=500 S
Erythromycin >4 R
Levofloxacin <=0.5 S <=1 S <=1 S
Oxacillin >2 R
Meropenem <=1 S
Piperacillin/Tazobactam <=16 S
Tetracycline >8 R >8 R
Tobramycin <=4 S
Trimethoprim/Sulfamethoxazole <=2/38 S <=0.5/9.5 S
Vancomycin 1 S 2 S
1. Klebsiella pneumoniae
M.I.C. RX
--------- ---
Amoxicillin/Potas. Clavulanate <=8/4 S
Ampicillin >16 R
Ampicillin/Sulbactam 16/8 I
Cefazolin 8 R
Cefepime <=2 S
Ceftazidime <=1 S
Ceftriaxone <=1 S
Ertapenem <=0.5 S
Ciprofloxacin <=0.25 S
Gentamicin <=4 S
Levofloxacin <=0.5 S
Meropenem <=1 S
Piperacillin/Tazobactam <=16 S
Tobramycin <=4 S
Trimethoprim/Sulfamethoxazole <=2/38 S
2. Staph aureus MRSA
M.I.C. RX
--------- ---
Amoxicillin/Potas. Clavulanate <=4/2 R
Ampicillin >8 R
Clindamycin >4 R
Gentamicin <=4 S
Erythromycin >4 R
Levofloxacin <=1 S
Oxacillin >2 R
Tetracycline >8 R
Trimethoprim/Sulfamethoxazole <=0.5/9.5 S
Vancomycin 1 S
3. Enterococcus faecalis
M.I.C. RX
--------- ---
Ampicillin <=2 S
Gentamicin Synergy Screen <=500 S
Susceptible result indicates synergy is likely with a cell
wall active agent that is also susceptible
(e.g.ampicillin,penicillin,vancomycin)
Levofloxacin <=1 S
Tetracycline >8 R
Vancomycin 2 S
[2023-08-06] MEDS: DAKIN'S SOLUTION 0.125% 1/4 STRENGTH 5 ML TOPICAL (15:00)
[2023-08-06] MEDS: DESENEX/MITRAZOL/ZEASORB 1 APPLIC TOPICAL (15:26)
[2023-08-06 16:08] VITALS: BP 91/56
--- NOTE | 2023-08-06 18:00 | PTCARENOTE ---
Patient refused repositioning at this time, as he verbalizes he is expecting dinner tray soon.
[2023-08-06] MEDS: LOVENOX 40 MG SC (18:01)
[2023-08-06] MEDS: FLUSH (NSS) 1 FLUSH IV (18:03)
[2023-08-06 20:02] VITALS: BP 95/62
[2023-08-06] MEDS: CRESTOR 10 MG PO (21:22)
[2023-08-06] MEDS: DESENEX/MITRAZOL/ZEASORB TOPICAL (21:29)
[2023-08-06] MEDS: DAKIN'S SOLUTION 0.125% 1/4 STRENGTH TOPICAL (21:29)
[2023-08-07] VITALS: BP 94/66
[2023-08-07 04:00] VITALS: BP 100/71
[2023-08-07] MEDS: ZOSYN 50 IV (05:07)
[2023-08-07] MEDS: VANCOCIN 300 MG IV (06:12)
[2023-08-07] MEDS: VANCOCIN 300 ML IV (06:12)
[2023-08-07 07:02] LABS: % Basophils 0.9 % (0-2); % Eosinophils 10.9 % (0-6); % Immature Granulocytes 0.6 % (0-0.5); % Lymphocytes 25.2 % (20.5-51.1); % Monocytes 7.9 % (1.7-9.3); % Neutrophils 54.5 % (42.2-75.2); Absolute Basophils 0.1 10^3/uL (0-0.2); Absolute Eosinophils 0.7 10^3/uL (0-0.7); Absolute Lymphocytes 1.6 10^3/uL (1.2-3.4); Absolute Monocytes 0.5 10^3/uL (0.1-0.6); Absolute Neutrophils 3.5 10^3/uL (1.4-6.5); Hematocrit 35.3 % (39.0-52.0); Hemoglobin 11.3 g/dL (13.0-18.0); Mean Corpuscular Hgb 27.7 pg (27.0-31.0); Mean Corpuscular Volume 86.5 fL (80.0-94.0); Mean Platelet Volume 8.5 fL (7.4-10.4); Nucleated Red Blood Cells % 0 % (-); Platelet Count 329 10^3/uL (130-400); Red Blood Cell Count 4.08 10^6/uL (4.70-6.10); Red Cell Dist. Width 13.8 % (11.5-14.5); White Blood Cell Count 6.4 10^3/uL (4.8-10.8)
[2023-08-07 07:23] LABS: Blood Urea Nitrogen 20 mg/dl (9-20); Calcium 9.2 mg/dl (8.4-10.2); Carbon Dioxide 26 mmol/L (22-30); Chloride 104 mmol/L (98-107); Estimated Creatinine Clearance 95 ml/min; Glucose 97 mg/dl (70-99); Potassium 4.5 mmol/L (3.5-5.1); Sodium 139 mmol/L (135-145); eGFR > 60.00
[2023-08-07 07:30] VITALS: BP 122/64
[2023-08-07] MEDS: SENOKOT 8.59999999999999964 MG PO (07:35)
[2023-08-07] MEDS: DUPHALAC/CHRONULAC 20 GRAMS PO (07:35)
[2023-08-07] MEDS: LIORESAL 60 MG PO (07:35)
[2023-08-07] MEDS: DITROPAN 5 MG PO (07:35)
[2023-08-07] MEDS: DAKIN'S SOLUTION 0.125% 1/4 STRENGTH 473 ML TOPICAL (07:39)
[2023-08-07] MEDS: DESENEX/MITRAZOL/ZEASORB 1 APPLIC TOPICAL (07:39)
[2023-08-07] MEDS: NON-FORMULARY ITEM TOPICAL (08:11)
--- NOTE | 2023-08-07 08:27 | PHA.VAN.FU ---
Vancomycin Assessment / Plan
- Assessment
Renal Function: Stable
WBC's are: WNL
In the past 24 hrs, patient has been: Afebrile
Concomitant Antimicrobials: piperacillin/tazobactam
- Dosing Plan
Continue: Vanc 1500mg Q24H
- Monitoring Plan
No level(s) ordered at this time: consider repeat trough by Thursday (final level if stable)
Monitoring Comments: if remains admitted may consider peak Sun, trough Thu
- Follow Up
Pharmacy will continue to follow.
Vancomycin Follow UP
- -
Patient Age: 52
Patient Sex: Male
Vancomycin Day #: 9
Indication: Skin And Soft Tissue
Requesting Provider: Bri Chen / Dr. Sanders
Pertinent Antimicrobial Allergies:
NKDA
Height / Weight:
Height 5 ft 10 in
Actual Weight 69.513 kg
- Vital Signs / Lab Results
Temp Pulse Resp BP Pulse Ox
97.8 F 60 16 122/64 100
08/07/23 07:30 08/07/23 07:30 08/07/23 07:30 08/07/23 07:30 08/07/23 07:30
Lab Results - Hematology
08/05/23 08/06/23 08/07/23
07:01 04:52 05:04
WBC 8.8 7.6 6.4
Lab Results - Chemistry
08/05/23 08/06/23 08/07/23
07:01 04:52 05:04
BUN 23 H 16 20
Creatinine 0.9 0.8 0.9
Estimated Creat Clear 95 107 95
Microbiology Results
07/31/23 12:10 Anaerobic Culture - Final
Buttock
Therapeutic Drug Monitoring
Vancomycin Peak 30.3 ug/ml (18-26) H 08/03/23 20:27
Vancomycin Trough 17.4 ug/ml (5-20) 08/04/23 06:31
--- NOTE | 2023-08-07 10:19 | CM ---
Nursing contacted [facility], medications are now available.
Midline catheter in place
Transfer to [facility] today.
Patient from [facility]
Report: [facility] # [phone]
Fax#: [phone].
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
--- NOTE | 2023-08-11 13:22 | W.SUR.PREOP ---
Pre-Operative Surgical Note
-
Delayed entry note for 08/03/2023.
I have examined this patient prior to the performance of the scheduled procedure.
The patient's condition is unchanged from the time of the current History and
Physical and the patient is able to undergo the scheduled procedure.
== END 2023-08-07 10:06 | DRG 853 ==
LOC: 4 WEST ACU 22:51
PROVIDERS: Clinical Nurse Specialist Family Health; Registered Nurse; Surgery; ADMITTING PHYSICIAN Internal Medicine; ATTENDING PHYSICIAN Internal Medicine; CONSULT PHYSICIAN Internal Medicine Infectious Disease; EMERGENCY PHYSICIAN Emergency Medicine; OTHER PHYSICIAN Surgery
PROC: 0JB70ZZ Excision of Back Subcutaneous Tissue and Fascia, Open Approach (ICD-10-PCS; 2023-07-31)
PROC: 0HB6XZZ Excision of Back Skin, External Approach (ICD-10-PCS; 2023-08-04)
DX: A41.9 Sepsis, unspecified organism (principal); G82.50 Quadriplegia, unspecified; L89.154 Pressure ulcer of sacral region, stage 4; I96 Gangrene, not elsewhere classified; E87.1 Hypo-osmolality and hyponatremia; F32.A Depression, unspecified; D64.9 Anemia, unspecified; L89.611 Pressure ulcer of right heel, stage 1; B96.1 Klebsiella pneumoniae [K. pneumoniae] as the cause of diseases classified elsewhere; B95.62 Methicillin resistant Staphylococcus aureus infection as the cause of diseases classified elsewhere; B95.2 Enterococcus as the cause of diseases classified elsewhere; B96.3 Hemophilus influenzae [H. influenzae] as the cause of diseases classified elsewhere; E78.5 Hyperlipidemia, unspecified; J30.2 Other seasonal allergic rhinitis; K59.09 Other constipation; N31.9 Neuromuscular dysfunction of bladder, unspecified; M62.838 Other muscle spasm; M54.2 Cervicalgia; S24.103S Unspecified injury at T7-T10 level of thoracic spinal cord, sequela; V29.99XS Rider (driver) (passenger) of other motorcycle injured in unspecified traffic accident, sequela; R82.71 Bacteriuria; R53.81 Other malaise; R03.0 Elevated blood-pressure reading, without diagnosis of hypertension; Z79.1 Long term (current) use of non-steroidal anti-inflammatories (NSAID); Z79.899 Other long term (current) drug therapy; Z98.1 Arthrodesis status; Z86.19 Personal history of other infectious and parasitic diseases
CPT/HCPCS: 80048; 80053; 80202; 81003; 81015; 83605; 85025; 85027; 87040; 87070; 87075; 87077; 87086; 87147; 87176; 87186; 87205; 96365; 96375; 99284

== ENCOUNTER → 2023-08-25 12:51 | Outpatient (REF) | payer OTHER, SELFPAY | LOC: WOUND 12:51 | PROVIDERS: ATTENDING PHYSICIAN Surgery | DX: L89.154 Pressure ulcer of sacral region, stage 4 (principal); G82.50 Quadriplegia, unspecified | CPT/HCPCS: 99204 ==